=== PATIENT | female | born 1985 | race African-American/Black ===

== ENCOUNTER 2024-02-24 11:27 | Outpatient (CLI) | payer OTHER, MEDICAID, SELFPAY ==
[2024-02-24 12:59] LABS: Basophils Percent Auto 0.3 % (0.2-1.2); Eosinophils Absolute Auto 0.1 K/mm3 (0-0.3); Eosinophils Percent Auto 0.6 % (0-4.4); Hematocrit 35.1 % (37.0-47.0); Hemoglobin 11.5 g/dL (12.0-15.0); Immature Granulocyte Absolute 0.05 K/mm3 (0.00-0.031); Immature Granulocyte Percent A 0.4 % (0-0.5); Lymphocytes Percent Auto 22.5 % (18.3-44.2); Mean Corpuscular HGB Conc 32.8 g/dl (32-36); Mean Corpuscular Hemoglobin 32.1 pg (26-34); Mean Platelet Volume 10.1 fl (7.4-10.4); Monocytes Absolute Auto 0.7 K/mm3 (0.1-0.6); Monocytes Percent Auto 5.4 % (2.6-8.5); Neutrophils Absolute Auto 8.5 K/mm3 (1.3-6.7); Neutrophils Percent Auto 70.8 % (45.5-73.1); Platelet Count Result 284 k/mm3 (150-375); Red Blood Count 3.58 M/mm3 (4.2-5.4); Red Cell Distribution Width 13.6 % (11.5-14.5)
[2024-02-24 13:19] LABS: Glucose 1 Hour PP 50gm Dose 85 mg/dL
[2024-02-24 13:57] LABS: HIV 1/2 Ab P24 Ag Result Negative (Negative)
[2024-02-24 14:25] LABS: Rapid Plasma Reagin Non-Reactive (NonReactive)
[2024-02-24 14:45] LABS: Hepatitis B Surface Antigen Negative (Negative); Rubella IgG Antibody 9.3 IU/ML
[2024-02-25 07:18] LABS: CMV IgG Antibody >10.00 U/mL
== END 2024-02-24 11:28 | disposition home or self-care (01) ==
LOC: ANHLAB 11:29
PROVIDERS: Visit Provider Student in an Organized Health Care Education/Training Program
DX: N94.89 Other specified conditions associated with female genital organs and menstrual cycle (principal)
CPT/HCPCS: 36415; 82947; 84702; 85025; 85660; 86592; 86644; 86703; 86747; 86762; 86787; 86850; 86900; 86901; 87086; 87340; G0432

== ENCOUNTER 2024-04-28 12:27 | Outpatient (CLI) | payer OTHER, MEDICAID, SELFPAY ==
--- OUTSIDE RECORDS SUMMARY | 2024-04-28 13:21 | XMS_ITS | Clinical Summary ---
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 Gender Identity Not on file Sexual Orientation Not on file Plan of Treatment Health Maintenance Due Date Last Done Comments Hepatitis C Virus (HCV) Screening 1984 TdaP Immunization 1984 Hepatitis B Immunization (1 of 3 - 19+ 3-dose series) 2003 Pap Smear 2005 Cervical Cancer Screening (CCS) 2014 HPV/Cotest 2014 Influenza Immunization (#1) 11/30/202312/30, 01/19/2019 SARS-COV-2 Immunization (2023- season) 2023 Discussion re Starting/Frequency of Mammograms 2024 Respiratory Syncytial Virus (RSV) Immunization (Adult) (1 - 1-dose 75+ series) 2059 Meningococcal Immunization (ACWY) Aged Out No longer eligible b ased on patient's age to complete this topic Pneumococcal Immunization Combined Aged Out No longer eligible b ased on patient's age to complete this topic Rotavirus Immunization Aged Out No lo nger eligible based on patient's age to complete this topic
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
--- OUTSIDE RECORDS SUMMARY | 2024-04-28 13:21 | XMS_ITS | Referral Summary ---
Author Organization [facility] Address [address] [place] [address] Care Team Providers Care Tool Chaser Name Role Phone Shefali Guevara MD Primary Care Provider + Allergies No known active allergies Medications topiramate (TOPAMAX) 100 mg tablet Take 1 tablet (100 mg total) by mouth 2 (two) times a day Active topiramate (TOPAMAX) 50 mg tablet Take 1 tablet (50 mg total) by mouth 2 (two) times a day Active venlafaxine XR (EFFEXOR-XR) 150 mg 24 hr capsule Take 1 capsule (150 mg total) by mouth daily Active venlafaxine XR (EFFEXOR-XR) 75 mg 24 hr capsule Take 1 capsule (75 mg total) by mouth daily Active apixaban 5 mg (74 tabs) tablets,dose pack Take 10 mg (2 tablets) by mouth 2 (two) times a day for 7 days, then take 5 mg (1 tablet) by mouth 2 (two) times a day thereafter. 74 tablet 09/15/2023 Active Active Problems Problem Noted Date Diagnosed Date Pulmonary embolism, other, u nspecified chronicity, unspecified whether acute cor pulmonale present 09/15/2023 Assessment & Plan (09/15/2023 10:16 AM CDT): Pt had diagnosis of PE 2 days ago. She did not have O2 requirement and had negative cardiac biomarkers. She returns today after episode of vomiting. Cardiac biomarkers remain negative and she remains on RA. Further admission for monitoring is not likely to be of benefit for the patient. She should be started on DOAC (eliquis or xarelto) and discharged. After discussion with patient and perez checking with pharmacy it was decided to prescribe her eliquis. She was given 3 months supply. Conversation regarding the risks and benefits of anticoagulation occurred and patient expressed understanding Withdrawal syndrome 09/15/2023 Assessment & Plan (09/15/2023 10:18 AM CDT): Patients presenting complaint to OSH 2 days ago sounds suspicious for withdrawal from venlafaxine/topiramate as she is on fairly high doses and stopped abruptly. She has since been able to resume these medications and is feeling improved. She is able to eat/drink without issue Mixed anxiety and depressive disorder 06/03/2016 Assessment & Plan (09/15/2023 10:18 AM CDT): Resume home venlafaxine/topiramate Immunizations Name Administration Dates Next Due Tdap 11/29/2021 Social History Tobacco Use Types Packs/Day Years Used Date Smoking Tobacco: Never Assessed Personal Safety Answer Date Recorded Have you ever been in or are you currently in a harmful physical or emotional relationship or is someone making you feel afraid or unsafe? Denies 09/15/2023 Comments Unknown Sex and Gender Information Value Date Recorded Sex Assigned at Not on file Legal Sex Female 4:39 PM CDT Gender Identity Female 11/29/2021 5:58 PM CDT Sexual Orientation Not on file Last Filed Vital Signs Vital Sign Reading Time Taken Comments Blood Pressure 122/77 09/15/2023 10:00 AM CDT Pulse 73 09/15/2023 10:00 AM CDT Temperature 36.9 ??C (98.4 ??F) 09/15/2023 3:50 AM CD T Respiratory Rate 25 09/15/2023 10:00 AM CDT Oxygen Saturation 100% 09/15/2023 10:00 AM CDT Inhaled Oxygen Concentration - - Weight 117.9 kg (260 lb) 09/15/2023 12:57 AM CDT Height 160 cm (5' 3) 11/29/2021 4:51 PM CDT Body Mass Index 46.06 11/29/2021 4:51 PM CDT Plan of Treatment Not on file Procedures Procedure Name Priority Date/Time Associated Diagnosis Comments HEPATITIS PANEL, ACUTE STAT 11/29/2021 5:14 PM CDT from Last 3 Months or Most Recently Relevant to Health Maintenance Results * Hepatitis panel, acute (11/29/2021 5:14 PM CDT) Hep A IgM Nonreactive Nonreactive [facility] Comment: Interpretive Data: If Hep A IgM Ab is reported as Equivocal, a new sample should be drawn in two weeks for testing. Current interpretive data was last revised on 19. Hep B core IgM Nonreactive Nonreactive [facility] Comment: Interpretive Data If HepB Core IgM Ab is reported as Equivocal, a new sample should be drawn in two weeks for testing. Current interpretive data was last revised on 19. Hep C Ab Nonreactive Nonreactive [facility] Comment: Interpretive Data Nonreactive: Antibodies to HCV not detected. Does NOT exclude the possibility of recent exposure to HCV. Equivocal: Equivocal for HCV antibodies. Supplemental molecular testing will be automatically performed to determine infection status in accordance with current CDC screening recommendations. ?? Reactive: Positive for HCV antibodies. ??This may represent current or past HCV infection. Supplemental molecular testing will be automatically performed to determine ??current infection status in accordance with current CDC screening recommendations. Interpretive data was last revised on 2019. HepBsAg Nonreactive Nonreactive [facility] Blood 11/29/2021 5:14 PM CDT 11/29/2021 5:16 PM CDT us [facility] MICROBIOLOGY - GENERAL ORDER MARTÍN Final Result [facility] [address] [facility] [place] [address] from Last 3 Months or Most Recently Relevant to Health Maintenance Insurance [employer] [facility] CHOICE PLUS [facility]PPO Address: [address] [address] [place] [address] [employer] [facility] PL[facility]O Address: [address] [address] [place] [address] Care Teams Tool Chaser Relationship Specialty Start Date End Date Shefali Guevara MD [address] [place] [address] DR RANDALL [address] [place] [id number] PCP - General Family Medicine 11/29/21
--- OUTSIDE RECORDS SUMMARY | 2024-04-28 13:21 | XMS_ITS | Clinical Summary ---
Author Organization [facility] Address [facility] [facility] [place], [place] [id number] [place] [address] Care Team Providers Care Nutrition Teacher Name Role Phone Unavailable Primary Care Provider Unavailabl e Social History Tobacco Use Types Packs/Day Years Used Date Smoking Tobacco: Never Assessed Comments Unknown Sex and Gender Information Value Date Recorded Sex Assigned at Not on file Legal Sex Female 7:50 PM CDT Gender Identity Not on file Sexual Orientation Not on file Plan of Treatment Health Maintenance Due Date Last Done Comments Cervical Cancer Screening Pa p Smear (Age 30 to 64) Every 3 Years 1984 Annual Physical 1987 Hepatitis C 2002 DTaP, Tdap and Td Vaccines ( 1 - Tdap) 2003 Hepatitis B Vaccines (1 of 3 - 19+ 3-dose series) 2003 Cervical Cancer Screening Pa p with HPV Testing (Age 30 to 64) Every 5 Years 2014 Cervical Cancer Screening with HPV 2014 COVID-19 Vaccine (2023-2 5 season) 2023 Influenza Adult (#1) 2023 Mammogram Screening 2024 HPV Vaccines Aged Out No longer eligi ble based on patient's age to complete this topic Meningococcal B Vaccine Aged Out No l onger eligible based on patient's age to complete this topic Meningococcal Vaccine Aged Out No costa andressa eligible based on patient's age to complete this topic Pneumococcal Vaccine: Pediat rics (0 to 5 Years) and At-Risk Patients (6 to 64 Years) Aged Out No longer eligible b ased on patient's age to complete this topic RSV Immunizations Under 20 Months Aged Out No longer eligible based on patient's age to complete this topic
--- OUTSIDE RECORDS SUMMARY | 2024-04-28 13:21 | XMS_ITS | Clinical Summary ---
Author Organization [facility] Address [address] [place] [address] Care Team Providers Care Concrete Plant Laborer Name Role Phone Shefali Guevara MD Primary Care Provider [phone] Source Comments [facility],non-owned Affiliates and Associated Physician Practices is amultiple site organization consisting of ambulatory clinics and hospital sitesin [place], [place], [place] and [place]. This disclosure is being madepursuant to the Care Everywhere program and may not contain all information available regarding this patient. Last updated 17.[facility] Allergies No known active allergies Medications * Be aware that medications may not be up to date on this document. Alwaysverify current medications with the patient. Medication Sig Dispensed Refills Start Date End Date Status Vit-DSS-Fe Fum-FA ( vitamin with iron) tabletIndications : Take 1 (one) tablet by mouth once daily Reasons: Active enoxaparin (Lovenox) 40 MG/0.4ML injectionIndicati ons:history of pulmonary embolism Inject 60 (sixty) mg subcutaneously every 12 hours Reasons: history of pulmonary embolism Active aspirin (Aspirin) 81 MG chew tabletIndications :Antepartum multigravida of advanced maternal age (HCC),History of pulmonary embolism Take 1 (one) tablet by mouth once daily 100 tablet 1 04/28/2024 Active oxyCODONE-acetami nophen (PERCOCET) 5-325 MG tablet Take 1 tablet by mouth every 6 hours as needed for Pain 12 tablet 11/07/2018 04/28/19 25 Discontinu ed(List Clean-Up) Encounters Date Type Department Care Team Description 04/28/2024 9:45 AM HAND RUG CLEANER Hospital Encounter [facility] [address] [place] [address] Anshul Gates MD 04/28/2024 9:45 AM HAND RUG CLEANER Hospital Encounter [facility] Maternal & Care [address] [place] [address] Anshul Gates MD 04/20/2024 Travel 04/12/2024 Telephone [facility] [address] [place] [phone] Marisol Coe RN Results (NIPT) 04/06/2024 9:45 AM HAND RUG CLEANER - 04/06/2024 11:59 PM HAND RUG CLEANER Hospital Encounter [facility] [address] [place] [phone] Fe Maravilla MD Discharge Disposition: Home or Self Care 03/22/2024 Telephone [facility] [address] [place] [phone] Nelly Griffiths Appointment (LM for pt to C/S appt) from Last 3 Months Immunizations Name Administration Dates Next Due TDAP (7yrs+) 11/07/2018 Family History Relation Name Status Comments Father Mother Alive Social History Tobacco Use Types Packs/Day Years Used Date Smoking Tobacco: Former Cigarettes Smokeless Tobacco: Never Tobacco Cessation:Counseling Given: Not Answered Alcohol Use Standard Drinks/Week Comments Not Currently 0 (1 standard drink = 0.6 oz pur e alcohol) Estimated Date of Delivery Comme nts Yes 10/11/2024 Based on last me nstrual period of 01/05/2024 Sex and Gender Information Value Date Recorded Sex Assigned at Not on file Gender Identity Not on file Sexual Orientation Not on file Last Filed Vital Signs Vital Sign Reading Time Taken Comments Blood Pressure 120/74 04/28/2024 10:15 AM HAND RUG CLEANER Pulse 84 04/28/2024 10:15 AM HAND RUG CLEANER Temperature 37.1 ??C (98.7 ??F) 11/07/2018 6:48 PM CD T Respiratory Rate 18 11/07/2018 7:15 PM CDT Oxygen Saturation 100% 11/07/2018 6:48 PM CDT Inhaled Oxygen Concentration - - Weight 120.7 kg (266 lb) 04/28/2024 10:15 AM HAND RUG CLEANER Height 160 cm (5' 3) 04/28/2024 10:15 AM HAND RUG CLEANER Body Mass Index 47.12 04/28/2024 10:15 AM HAND RUG CLEANER Plan of Treatment Upcoming Encounters Date Type Department Care Team (Late st Contact Info) Description 05/05/2024 7:30 AM HAND RUG CLEANER Appointment [facility] Maternal & Care [address] [place] [phone] 05/26/2024 9:00 AM HAND RUG CLEANER Appointment [facility] [address] [place] [phone] 05/26/2024 9:45 AM HAND RUG CLEANER Appointment [facility] [address] [place] [phone] Health Maintenance Due Date Last Done Comments LIPID TESTING 1984 MAMMOGRAM 1984 PAP SMEAR 1984 HIV SCREENING 1999 HEPATITIS C SCREENING 03/12/2002 HEPATITIS B VACCINE (1 of 3 - 19+ 3-dose series) 2003 COVID-19 VACCINE (2023-2 5 season) 2023 INFLUENZA VACCINE (#1) 2023 , 01/19/2019 DEPRESSION SCREENING 03/31/2024 SCREENING FOR DIABETES 04/28/2024 11/07/2018 OB-TDAP CURRENT 07/12/2024 11/07/2018 DTAP/TDAP/TD VACCINES (2 - T d or Tdap) 11/07/2028 11/07/2018 ZOSTER VACCINE (1 of 2) 2034 HIB VACCINE Aged Out No longer eligi ble based on patient's age to complete this topic HPV VACCINE Aged Out No longer eligi ble based on patient's age to complete this topic MENINGOCOCCAL (Group B) VACCINE Aged Out No longer eligible b ased on patient's age to complete this topic MENINGOCOCCAL VACCINE Aged Out No costa andressa eligible based on patient's age to complete this topic PNEUMOCOCCAL VACCINE Aged Out No long er eligible based on patient's age to complete this topic Respiratory Syncytial Virus (RSV) Vaccine Pt: or over 60 yrs (No Doses Required) Completed Procedures Procedure Name Priority Date/Time Associated Diagnosis Comments SONOGRAM - COMPLETE Routine 04/06/2024 10:29 AM HAND RUG CLEANER Obesity, morbid, BMI 40.0-49.9 (HCC) Antepartum multigravida of advanced maternal age (HCC) Fourth (HCC) 13 weeks gestation of (HCC) BASIC METABOLIC PANEL (CALCIUM TOTAL) STAT 11/07/2018 6:55 PM CDT from Last 3 Months or Most Recently Relevant to Health Maintenance Results * SONOGRAM - COMPLETE (04/06/2024 10:29 AM HAND RUG CLEANER) Linked Results Indication ======== Nuchal Translucency AMA Obesity, Class III Pulmonary embolism in August 2023 History ====== OB History ? 4. Para 2 Maternal Assessment = Physical Exam ??Height 160 cm, 5 ft 3 in. Weight 122 kg, 268 lb. Initial weight 123 kg, 272 lb. BMI 47.47 kg/m?. Initial BMI 48.18 kg/m?. Weight gain -2 kg, -4 ? lb Method ====== Transabdominal ultrasound. View: Sufficient ========= Mars . Number of fetuses: 1 Dating ====== ? Date ?Details ? Gest. age ? YASIR LMP ?01/05/2024 ? 13 w + 1 d ?10/11/2024 U/S ?04/06/2024 ?based upon CRL ?13 w + 0 d ?10/12/2024 Assigned dating based on the LMP, selected on 04/06/2024 ?13 w + 1 d ?10/11/2024 General Evaluation Cardiac activity present Placenta: posterior; marginal placental cord insertion Cord vessels: 3 vessel cord Amniotic fluid: appears normal Biometry FHR ?121 ? bpm CRL ?66.8 ?mm ?13w 0d ??33% ? Hadlock NT ? 1.00 ?mm Anatomy Face: nasal bone suboptimal. The following structures appear normal: Neck. The following structures could not be adequately visualized: Kidneys. The following structures were visualized: Cranium. Heart. Stomach. Bladder. Spine. Arms. Legs. Maternal Structures Right Ovary ?Not visualized Left Ovary ? Appears normal Impression ========= Single, live, intrauterine at 13w 1d The nuchal translucency measures 1 mm First trimester aneuploidy screening was performed. The placenta is posterior with a marginal cord insertion. The inferior edge is not well visualized at this early gestational age. Follow-up ======== Await results of genetic screening. MFM consult is recommended, to discuss the history of pulmonary embolism in the context of the current . Ultrasound in 4 weeks, for basic anatomy and to better define the placental location. Detailed ultrasound at 20-21 weeks, for anatomic survey, growth and transvaginal cervical length is recommended. Coding ====== Procedures ? 90556: 1st Trimester ? 16864: Nuchal Translucency [facility] PACS Anatomical Region Laterality Modality Other 04/06/2024 10:2 9 AM HAND RUG CLEANER Jesús Shepard MD [facility] ORDERABLES * (ABNORMAL) BASIC METABOLIC PANEL (CALCIUM TOTAL) (11/07/2018 6:55 PM CDT) BUN 14 7 - 26 mg/dL 11/07/2018 7:14 PM [facility] Creatinine 0.8 0.6 - 1.2 mg/dL 11/07/2018 7:14 PM [facility] Sodium 142 136 - 145 mmol/L 11/07/2018 7:14 PM [facility] Potassium 3.4(L) 3.5 - 4.5 mmol/L 11/07/2018 7:14 PM [facility] Chloride 110(H) 98 - 107 mmol/L 11/07/2018 7:14 PM [facility] CO2 18(L) 22 - 29 mmol/L 11/07/2018 7:14 PM [facility] Glucose 100 70 - 115 mg/dL 11/07/2018 7:14 PM [facility] Calcium 8.9 8.4 - 10.2 mg/dL 11/07/2018 7:14 PM [facility] Anion Gap 17 8 - 18 11/07/2018 7:14 PM [facility] BUN/Creatinine Ratio 18 7 - 23 11/07/2018 7:14 PM [facility] Osmolality Calculated 295 270 - 300 mOsm/kg 11/07/2018 7:14 PM [facility] eGFR >60 >60 mL/min/1.7 3 m2 11/07/2018 7:14 PM [facility] Blood BLOOD SPECIMEN / Unknown Venipuncture / Unknown 11/07/2018 6:55 PM CDT 11/07/2018 6:58 PM CDT Vicente Ivey DO LAB - CHEMISTRY [facility] [address] [phone] from Last 3 Months or Most Recently Relevant to Health Maintenance Care Teams Concrete Plant Laborer Relationship Specialty Start Date End Date Shefali Guevara MD [address] [place] [id number] PCP - General Family Medicine 11/07/18
--- OUTSIDE RECORDS SUMMARY | 2024-04-28 13:21 | XMS_ITS | Referral Summary ---
Author Organization [facility] Address [address] [facility] [place] [address] Care Team Providers Care Seasonal Tax Preparer Name Role Phone Shefali Guevara MD Primary Care Provider [phone] Source Comments [facility],non-owned Affiliates and Associated Physician Practices is amultsumma healthe site organization consisting of ambulatory clinics and hospital sitesin [place], [place], [place] and [place]. This disclosure is being madepursuant to the Care Everywhere program and may not contain all information available regarding this patient. Last updated 17.[facility] Encounters Date Type Department Care Team Description 04/28/2024 9:45 AM SMOKE EATER Hospital Encounter [facility] Maternal & Care [address] [place] [phone] Anshul Gates MD 04/28/2024 9:45 AM SMOKE EATER Hospital Encounter [facility] Maternal & Care [address] [place] [phone] Anshul Gates MD 04/20/2024 Travel 04/12/2024 Telephone [facility] Maternal & Care [address] [place] [phone] Marisol Coe RN Results (NIPT) 04/06/2024 9:45 AM SMOKE EATER - 04/06/2024 11:59 PM SMOKE EATER Hospital Encounter [facility] Maternal & Care [address] [place] [phone] Fe Maravilla MD Discharge Disposition: Home or Self Care 03/22/2024 Telephone [facility] & Care [address] [place] [address] Nelly Griffiths Appointment (LM for pt to C/S appt) from Last 3 Months Allergies No known active allergies Medications * [...] tablet 11/07/2018 04/28/19 25 Discontinu ed(List Clean-Up) Immunizations Name Administration Dates Next Due TDAP (7yrs+) 11/07/2018 Social History Tobacco Use Types Packs/Day Years [...] Comments Blood Pressure 120/74 04/28/2024 10:15 AM SMOKE EATER Pulse 84 04/28/2024 10:15 AM SMOKE EATER Temperature 37.1 ??C (98.7 ??F) 11/07/2018 6:48 PM CD T Respiratory Rate 18 11/07/2018 7:15 PM CDT Oxygen Saturation 100% 11/07/2018 6:48 PM CDT Inhaled Oxygen Concentration - - Weight 120.7 kg (266 lb) 04/28/2024 10:15 AM SMOKE EATER Height 160 cm (5' 3) 04/28/2024 10:15 AM SMOKE EATER Body Mass Index 47.12 04/28/2024 10:15 AM SMOKE EATER Plan of Treatment Upcoming Encounters Date Type Department Care Team (Late st Contact Info) Description 05/05/2024 7:30 AM SMOKE EATER Appointment [facility] Maternal & Care [address] [place] [phone] 05/26/2024 9:00 AM SMOKE EATER Appointment [facility] Maternal & Care [address] [place] [phone] 05/26/2024 9:45 AM SMOKE EATER Appointment [facility] Maternal & Care [address] [place] [phone] Procedures Procedure Name Priority Date/Time Associated Diagnosis Comments SONOGRAM - COMPLETE Routine 04/06/2024 10:29 AM SMOKE EATER Obesity, morbid, BMI 40.0-49.9 (HCC) Antepartum multigravida of advanced maternal age (HCC) Fourth (HCC) 13 weeks gestation of (HCC) BASIC METABOLIC PANEL (CALCIUM TOTAL) STAT 11/07/2018 6:55 PM CDT from Last 3 Months or Most Recently Relevant to Health Maintenance Results * SONOGRAM - COMPLETE (04/06/2024 10:29 AM SMOKE EATER) Linked Results Indication ======== Nuchal Translucency AMA [...] length is recommended. Coding ====== Procedures ? 76493: 1st Trimester ? 59441: Nuchal Translucency [employer] PACS Anatomical Region Laterality Modality Other 04/06/2024 10:2 9 AM SMOKE EATER Jesús Shepard MD [facility] ORDERABLES * (ABNORMAL) BASIC METABOLIC PANEL (CALCIUM TOTAL) (11/07/2018 6:55 PM CDT) BUN 14 7 - 26 mg/dL 11/07/2018 7:14 PM [facility] Creatinine 0.8 0.6 - 1.2 mg/dL 11/07/2018 7:14 PM [facility] Sodium 142 136 - 145 mmol/L 11/07/2018 7:14 PM [facility] Potassium 3.4(L) 3.5 - 4.5 mmol/L 11/07/2018 7:14 PM [facility] Chloride 110(H) 98 - 107 mmol/L 11/07/2018 7:14 PM [facility] CO2 18(L) 22 - 29 mmol/L 11/07/2018 7:14 PM [facility] Glucose 100 70 - 115 mg/dL 11/07/2018 7:14 PM CDT [facility] Calcium 8.9 8.4 - 10.2 mg/dL 11/07/2018 7:14 PM [facility] Anion Gap 17 8 - 18 11/07/2018 7:14 PM [facility] BUN/Creatinine Ratio 18 7 - 23 11/07/2018 7:14 PM T [facility] Osmolality Calculated 295 270 - 300 mOsm/kg 11/07/2018 7:14 PM [facility] eGFR >60 >60 mL/min/1.7 3 m2 11/07/2018 7:14 PM [facility] Blood BLOOD SPECIMEN / Unknown Venipuncture / Unknown 11/07/2018 6:55 PM CDT 11/07/2018 6:58 PM CDT Vicente Ivey DO LAB - CHEMISTRY [facility]ERE[facility] [address] [phone] from Last 3 Months or Most Recently Relevant to Health Maintenance Care Teams Seasonal Tax Preparer Relationship Specialty Start Date End Date Shefali Guevara MD [address] [place] [address] Dr. GONZALEZ, GIANNI [phone] PCP - General Family Medicine 11/07/18
--- OUTSIDE RECORDS SUMMARY | 2024-04-28 13:21 | XMS_ITS | Encounter Summary ---
Author Organization [facility] Address [address] [facility] [place] [address] Care Team Providers Care Washing Machine Operator Name Role Phone Shefali Guevara MD Primary Care Provider [phone] Reason for Referral * Laboratory Services (Routine) - Open Specialty Diagnoses / Procedures Referred By Contac t Referred To Contact Diagnoses Fourth (HCC) History of pulmonary embolism Procedures FACTOR [place] [address] [place] [phone] Referral ID Status Reason Start Date Expiration Date Visits Re quested Visits Authorized [id number] Open 04/28/2024 04/28/2025 1 1 CAPPER * Laboratory Services (Routine) - Open Specialty Diagnoses / Procedures Referred By Contac t Referred To Contact Diagnoses Fourth (HCC) History of pulmonary embolism Procedures PROTHROMBIN [id number] PANEL Anshul Gates MD [address] [place] [phone] Referral ID Status Reason Start Date Expiration Date Visits Re quested Visits Authorized [id number] Open 04/28/2024 04/28/2025 1 1 CAPPER * Consultation (Routine) - Authorized Specialty Diagnoses / Procedures Referred By Contac t Referred To Contact Diagnoses Obesity, morbid, BMI 40.0-49.9 (HCC) Antepartum multigravida of advanced maternal age (HCC) 16 weeks gestation of (HCC) Fourth (HCC) History of pulmonary embolism Jesús Shepard MD [address] [place] [address] Referral ID Status Reason Start Date Expiration Date Visits Requested Visits Authorized [id number] Authorized Specialty Services Required 04/23/2024 04/23/2025 3 3 CAPPER Reason for Visit * Reason Comments Consultation Maternal Medicine Encounter Details Date Type Department Care Team (Late st Contact Info) Description 04/28/2024 9:45 AM COMB CAPPER Hospital Encounter [facility] Maternal & Care [facility] [place] [address] Anshul Gates MD [address] [phone] Social History Tobacco Use Types Packs/Day Years [...] on file Sexual Orientation Not on file documented as of this encounter Last Filed Vital Signs Vital Sign Reading Time Taken Comments Blood Pressure 120/74 04/28/2024 10:15 AM COMB CAPPER Pulse 84 04/28/2024 10:15 AM COMB CAPPER Temperature - - Respiratory Rate - - Oxygen Saturation - - Inhaled Oxygen Concentration - - Weight 120.7 kg (266 lb) 04/28/2024 10:15 AM COMB CAPPER Height 160 cm (5' 3) 04/28/2024 10:15 AM COMB CAPPER Body Mass Index 47.12 04/28/2024 10:15 AM COMB CAPPER documented in this encounter Progress Notes * Marisol Coe RN - 04/28/2024 10:19 AM CST Patient here for provider visit and ultrasound . Patient reports she had some vaginal bleeding around 03/17/24 and she had to decrease lifting at work but she is off restriction as of 04/25/24. No vaginal bleeding since February. Denies cramping, contractions, leakage of fluid, and reports absent movement at 16 weeks EGA. RN reviewed preeclampsia precautions and baby blues, handout given. Denies headache, blurred vision, RUQ pain. Patient was having chest pain and withdrawals from being off effexor for about 5 days and she presented to [facility] in [place], [place] where they diagnosed her with pulmonary embolism. Patient was in ED for 1.5 days and could not find a bed so she signed out AMA. She went home and started throwing up blood and her kids called an ambulance that came and took her to [place]. Patient had CT scan, EKG, ect. Patient was put on heparin and patient was released on blood thinners. Patient did not get in for FU with [facility]. Patient went to Dr. Renee about 2 weeks later and MD did workup full work up as well as sleep study. Patient reports every test but the sleep study came back normal. Her sleep study showed she had sleep apnea and needed CPAP. Patient is unable to use CPAP machine due to uncomfortable. . Patient Vitals for the past 6 hrs: Pulse BP 04/28/24 1015 84 120/74 Patient's OB prescribed her enoxaparin but she is struggling with anxiety to be able to give herself shots. Discussed working through this and/or having another person be able to give her the shots. Instructed patient on how to give SQ injections today. Patient verbalized understanding. Urine dip today Negative for ketones, protein, glucose, blood and leukocytes. Orders from Dr. Gates to prescribe ASA 81 mg daily. [facility] ordered Free T4, TSH, SSA, SSB, APLAS and Anti thrombophilia labs. Patient to take requistion to [facility] lab. Marisol Coe RN 04/28/2024 10:25 AM CAPPER documented in this encounter Plan of Treatment Upcoming Encounters Date Type Department Care Team (Late st Contact Info) Description 05/05/2024 7:30 AM COMB CAPPER Appointment [facility] Maternal & Care [address] [place] [address] 05/26/2024 9:00 AM COMB CAPPER Appointment [facility] Maternal & Care [address] [place] [address] 05/26/2024 9:45 AM COMB CAPPER Appointment [facility] Maternal & Care [address] [place] [address] Scheduled Orders Name Type Priority Associated Diagnoses Orde r Schedule PROTHROMBIN [id number] PANEL Lab Routine Fourth ([facility]) History of pulmonary embolism 1 Occurrences starting 04/28/2024 until 04/23/2025 PROTEIN S ANTIGEN FREE Lab Routine Fourth ([facility]) History of pulmonary embolism 1 Occurrences starting 04/28/2024 until 04/23/2025 ANTITHROMBIN III ACTIVITY Lab Routine Fourth ([facility]) History of pulmonary embolism 1 Occurrences starting 04/28/2024 until 04/23/2025 FACTOR V LEIDEN MUTATION PANEL Lab Routine Fourth ([facility]) History of pulmonary embolism 1 Occurrences starting 04/28/2024 until 04/23/2025 BETA-2 GLYCOPROTEIN 1 ANTIBODY IGG/IGM PANEL Lab Routine Fourth ([facility]) History of pulmonary embolism 1 Occurrences starting 04/28/2024 until 04/23/2025 CARDIOLIPIN ANTIBODY IGG/IGM PANEL Lab Routine Fourth ([facility]) History of pulmonary embolism 1 Occurrences starting 04/28/2024 until 04/23/2025 SS-A (SJOGREN'S) ANTIBODY Lab Routine Fourth ([facility]) History of pulmonary embolism 1 Occurrences starting 04/28/2024 until 04/23/2025 SS-B (SJOGREN'S) ANTIBODY Lab Routine Fourth ([facility]) History of pulmonary embolism 1 Occurrences starting 04/28/2024 until 04/23/2025 PROTEIN C ACTIVITY Lab Routine Fourth ([facility]) History of pulmonary embolism 1 Occurrences starting 04/28/2024 until 04/23/2025 Scheduled Referrals Name Type Priority Associated Diagnoses Orde r Schedule AMB REFERRAL TO MATERNAL- MEDICINE Outpatient Referral Routine Obesity, morbid, BMI 40.0-49.9 ([facility]) Antepartum multigravida of advanced maternal age ([facility]) 16 weeks gestation of ([facility]) Fourth ([facility]) History of pulmonary embolism 1 Occurrences starting 04/23/2024 until 04/23/2025 documented as of this encounter Visit Diagnoses Diagnosis Obesity, morbid, BMI 40.0-49.9 (HCC)- Primary Antepartum multigravida of advanced maternal age (HCC) 16 weeks gestation of (HCC) state, incidental Fourth (HCC) state, incidental History of pulmonary embolism Personal history of pulmonary embolism documented in this encounter Care Teams Washing Machine Operator Relationship Specialty Start Date End Date Shefali Guevara MD [address] [place] [address] [place] [phone] PCP - General Family Medicine 11/07/18 documented as of this encounter
--- OUTSIDE RECORDS SUMMARY | 2024-04-28 13:22 | XMS_ITS | Encounter Summary ---
Author Organization [facility] Address [address] [place] [address] Care Team Providers Care Sustainable Development Policy Analyst Name Role Phone Shefali Guevara MD Primary Care Provider [phone] Reason for Referral * (Routine) - Open Specialty Diagnoses / Procedures Referred By Contac t Referred To Contact Diagnoses Encounter for ultrasound (HCC) Advanced maternal age in multigravida, second trimester (HCC) Procedures SONOGRAM - COMPLETE Anshul Gates MD [address] [phone] Referral ID Status Reason Start Date Expiration Date Visits Re quested Visits Authorized [id number] Open 04/28/2024 04/28/2025 1 1 QA ANALYST * (Routine) - Open Specialty Diagnoses / Procedures Referred By Contac t Referred To Contact Diagnoses Encounter for ultrasound (HCC) Advanced maternal age in multigravida, second trimester (HCC) Procedures SONOGRAM - COMPLETE Anshul Gates MD [address] [phone] Referral ID Status Reason Start Date Expiration Date Visits Re quested Visits Authorized [id number] Open 04/28/2024 04/28/2025 1 1 QA ANALYST Reason for Visit * Reason Comments Ultrasound Encounter Details Date Type Department Care Team (Late st Contact Info) Description 04/28/2024 9:45 AM LEAD QA ANALYST Hospital Encounter [facility] Maternal & Care [address] [place] [phone] Anshul Gates MD [facility] [phone] Social History Tobacco Use Types Packs/Day Years Used Date Smoking Tobacco: Former Cigarettes Smokeless Tobacco: Never Alcohol Use Standard Drinks/Week Comments Not Currently 0 (1 standard drink = 0.6 oz pur e alcohol) Estimated Date of Delivery Comme nts Yes 10/11/2024 Based on last me nstrual period of 01/05/2024 Sex and Gender Information Value Date Recorded Sex Assigned at Not on file Gender Identity Not on file Sexual Orientation Not on file documented as of this encounter Plan of Treatment Upcoming Encounters Date Type Department Care Team (Late st Contact Info) Description 05/05/2024 7:30 AM LEAD QA ANALYST Appointment [facility] Maternal & Care [address] [place] [phone] 05/26/2024 9:00 AM LEAD QA ANALYST Appointment [facility] Maternal & Care [address] [place] [phone] 05/26/2024 9:45 AM LEAD QA ANALYST Appointment [facility] Maternal & Care [address] [place] [phone] Scheduled Orders Name Type Priority Associated Diagnoses Order Schedule SONOGRAM - COMPLETE MATRNL MED Routine Encounter for ultrasound (HCC) Advanced maternal age in multigravida, second trimester (HCC) 1 Occurrences starting 04/28/2024 until 04/28/2025 SONOGRAM - COMPLETE MATRNL MED Routine Encounter for ultrasound (HCC) Advanced maternal age in multigravida, second trimester (HCC) 1 Occurrences starting 04/28/2024 until 04/28/2024 LUPUS ANTICOAGULANT PANEL Lab Routine Advanced maternal age in multigravida, second trimester (HCC) History of pulmonary embolism Ordered: 04/28/2024 documented as of this encounter Visit Diagnoses Diagnosis Encounter for ultrasound (HCC)- Primary Encounter for routine screening for malformation using ultrasonics Advanced maternal age in multigravida, second trimester (HCC) History of pulmonary embolism Personal history of pulmonary embolism documented in this encounter Care Teams Sustainable Development Policy Analyst Relationship Specialty Start Date End Date Shefali Guevara MD [address] [place] [address] [place] [phone] PCP - General Family Medicine 11/07/18 documented as of this encounter
--- OUTSIDE RECORDS SUMMARY | 2024-04-28 13:22 | XMS_ITS | CONTINUITY OF CARE DOCUMENT ---
Author Name daphnie, daphnie Address Unknown Organization [facility] Address [address] [place] [address] Phone [phone] Care Team Providers Care Egyptologist Name Role Phone Víctor GUTHRIE, Sathya Unavailable [facility] [employer] MARIA LMARCUS Unavailable COLT BOSWELL Unavailable PROBLEMS Condition Status Date Provider Notes Chest pain-type to be determined active Derek Renee MD Shortness of breath active Sathya Renee MD Swelling of bilateral legs active Sathya jeffrey MD Pulmonary embolism active Gurwinder Ahmedzai Sleep disorder active Gurwinder Machado RONDA--on cpap active Gurwinder Machado Morbid obesity active Sathya Renee MD Family History of Hypertension: active ? Brian Renee MD Family History of Hyperlipidemia: active ? To joselo Renee MD Family History of CVA or Stroke: active ? Derek Renee MD ENCOUNTERS Date Type Provider Location Encounter Diag nosis - In-person encounter Office Visit Sathya Renee MD [facility] RONDA--on cpap - In-person encounter Office Visit Sathya Renee MD [facility] Pulmonary embolismSleep disorder - In-person encounter Office Visit Sathya Renee MD [facility] Family History of CVA or Stroke:Family History of Hyperlipidemia:Family History of Hypertension:Chest pain-type to be determinedShortness of breathSwelling of bilateral legsMorbid obesity VITAL SIGNS Date Observation Value Provider Body Mass Index (Ratio) 45.70 kg/m2 Brian Renee MD pulse rate 77 /min Eva Fofana blood pressure, cuff size large Elijah smith Daisetta blood pressure, diastolic 68 mm[Hg] [facility], [facility] 118 mm[Hg] [facility] oxygen saturation, oximetry 99 % [facility] weight E&M 258 [lb_av] Eva Daisetta respiratory rate E&M 12 /min [facility] height E&M 63 [in_i] [facility] Body [facility] Index (Ratio) 46.23 kg/m2 Brian Renee MD blood pressure, diastolic -1 mm[Hg] Sury nkLog blood pressure, systolic 112 mm[Hg] Breann kLogic pulse rate 73 /min Bull blood pressure, diastolic 68 mm[Hg] Joe rret blood pressure, systolic 112 mm[Hg] Jar ret oxygen saturation, oximetry 100 % Bull blood pressure, cuff size large Joe rret respiratory rate E&M 14 /min Bull weight E&M 261 [lb_av] Bull y height E&M 63 [in_i] Bull da y blood pressure, diastolic 70 mm[Hg] Be halliey Pham blood pressure, systolic 132 mm[Hg] Bet shell Pham Body Mass Index (Ratio) 47.47 kg/m2 Brian Renee MD blood pressure, diastolic 76 mm[Hg] Da deja [place] blood pressure, systolic 122 mm[Hg] Dac ia Jam oxygen saturation, oximetry 98 % Karoline Jam respiratory rate E&M 16 /min Karoline V oss pulse rate 73 /min Karoline Jam weight E&M 268 [lb_av] Karoline Jam height E&M 63 [in_i] [facility] ALLERGIES Allergy Name Onset Date Reaction Criticality Status LATEX Low Criticality active RESULTS Date Observation Value Provider Reference Range Interpretation Location 3 hemoglobin A1C, blood, as % of total hemoglobin 5.2 % [facility] 4.8-5.6 3 free thyroxine index 1.8 [facility] 1.2-4.9 3 triiodothyronine resin uptake 26 % [facility] 24-39 3 thyroxine, serum, total 6.9 ug/dL [facility] 4.5-12.0 3 thyroid stimulating hormone, serum 1.720 u[IU]/mL [facility] 0.450-4.500 3 lipoprotein, beta, serum, point, quantitative, calculated 69 mg/dL [facility] 0-99 3 very low density lipoproteins 16 mg/dL [facility] 5-40 3 HDL cholesterol, serum 49 mg/dL [facility] >39 3 triglyceride, serum, random 80 mg/dL [facility] 0-149 3 cholesterol, serum 134 mg/dL [facility] 207-780 9695/03/2 3 platelet count 308 X10E3/UL [facility] 806-225 7633/03/2 3 red blood cell distribution width 13.8 % [facility] 12.3-15.4 3 mean corpuscular hemoglobin concentration, RBC 32.8 G/DL [facility] 31.5-35.7 3 mean corpuscular hemoglobin, RBC 30.9 pg [facility] 26.6-33.0 3 mean corpuscular volume, RBC 94 fL [facility] 79-97 3 hematocrit, blood 35.4 % [facility] 34.0-46.6 3 hemoglobin, blood 11.6 g/dL [facility] 11.1-15.9 3 erythrocyte (RBC) count 3.75 X10E6/UL [facility] 3.77-5.28 Low 3 leukocyte count, blood 12.5 X10E3/UL [facility] 3.4-10.8 High 3 alanine aminotransferase (SGPT), serum 12 1/L [facility] 0-32 3 aspartate aminotransferase (SGOT), serum 14 1/L [facility] 0-40 3 alkaline phosphatase, serum 62 1/L [facility] 39-117 3 bilirubin, serum, total 0.2 mg/dL [facility] 0.0-1.2 3 albumin/globulin ratio, serum 1.4 [facility] 1.2-2.2 3 globulin, serum 2.9 [facility] 1.5-4.5 3 albumin, serum 4.1 g/dL [facility] 3.5-5.5 3 protein, total, serum 7.0 g/dL [facility] 6.0-8.5 3 calcium, serum 9.5 mg/dL [facility] 8.7-10.2 3 carbon dioxide, venous blood 23 mmol/L [facility] 20-29 3 chloride, serum 104 mmol/L [facility] 96-106 3 potassium, serum 4.7 mmol/L [facility] 3.5-5.2 3 sodium, serum 140 mmol/L [facility] 164-108 0098/03/2 3 urea nitrogen/creatinine ratio, serum 13 [facility] 9-23 3 eGFR if 113 mL/min/{1 .73_m2} [facility] >59 3 eGFR if not 98 mL/min/{1 .73_m2} [facility] >59 3 creatinine, serum 0.79 mg/dL [facility] 0.57-1.00 3 urea nitrogen, blood 10 mg/dL [facility] 6-20 3 blood glucose, random 93 mg/dL [facility] 65-99 HISTORY OF MEDICATION USE Medication Status Instructions Dates Provider Indications Com ments Xarelto 20 mg tablet active Take 1 tablet by mouth once a day Gurwinder Ahmedzai Xarelto 20 mg tablet completed - Lili Antonio RN VITAMIN D TABLET active 2 unit once a day Gurwinder Machado Depo-Provera 150 mg/mL suspension completed 1 every three months - Gurwinder Machado SOCIAL HISTORY Date Observation Value Provider alcohol use, average drinks per day social Gurwinder Smithzacarmelita alcohol use yes Gurwinder Leei smoking, year quit 2017 Gurwinder smithbruce smoking history, total pack/day 2 Gurwinder Smithzai cigarette use yes Gurwinder Leei smoking status Former smoker Gurwinder Lee i alcohol use, average drinks per day social Gurwinder Leei alcohol use yes Gurwinder Smithzai smoking, year quit 2017 Gurwinder menendez smoking history, total pack/day 2 Gurwinder Leei cigarette use yes Gurwinder Leei smoking status Former smoker Gurwinder Lee i smoking status Former smoker Patricia Maynar d number of grandchildren Sathya Renee MD T brooke Renee MD social history E&M S moking History: Abimael reis is a former smoker. Sathya Renee MD social history reviewed E&M revi ewed - no changes required Sathya Renee MD alcohol use, average drinks per day social Karoline Jam alcohol use yes Karoline Jam smoking, year quit 2017 Karoline Chadwick s smoking history, total pack/day 2 Karoline Polk cigarette use yes Karoline Polk smoking status Former smoker Karoline Polk FUNCTIONAL STATUS Date Observation Value Provider periodic limb movement index absent (0) Patricia Pham FAMILY HISTORY Family Member Condition Maternal Grandmother Family History of C ongestive Heart Failure: Father Family History of Hy pertension: Father Family History of Hy perlipidemia: Father Family History of Di abetes: Father Family History of CV A or Stroke: INSURANCE PROVIDERS Payer name Policy type / Coverage type [place] red democrat [facility] Other [id number] [facility] Medicaid 0 [id number] ADVANCE DIRECTIVES Name Date DISCUSSED - NO DECISION MADE TREATMENT PLAN Date Name Performer Cardiology:This visi t has been a part of the consistent, comprehensive, and ongoing management of the chronic medical condition(s) listed above for the patient. Orders: C T Angio Chest (PE Protocol) (CPT-67145) Sathya Renee MD Cardiology Gurwinder penelope Cardiology Gurwinder penelope Cardiology Gurwinder penelope Cardiology: O rders: C T Angio Chest (PE Protocol) (CPT-33643) Gurwinder medzacarmelita Cardiology Gurwinder Ahmedzai Cardiology: O rders: S leep Study Home (CPT-17603) Gurwinder Davilamedzacarmelita Cardiology Gurwinder Ahmedzai Cardiology Gurwinder Ahmedzai Cardiology Gurwinder Ahmedzai Cardiology Gurwinder Ahmedzai Cardiology New Patient Sathya jeffrey MD Cardiology New Patient Sathya jeffrey MD Cardiology New Patient Sathya jeffrey MD Cardiology New Patient Sathya jeffrey MD Date Name CT Angio Chest (PE P rotocol) Sleep Study Home Vitamin D, 25-Hydrox y THYROID PANEL WITH T SH, 3RD GENERATION LIPID PANEL HEMOGLOBIN A1c CBC (H/H, RBC, INDIC ES, WBC, PLT) COMPREHENSIVE METABO LIC PANEL, W/EGFR Venous Doppler Bilat eral LE - Reflux Stress Routine Complete Echo HISTORY OF PROCEDURES Procedure Date Procedure Name Provider Procedure Notes S tatus Complex e/m visit add on Sathya Renee MD completed EKG Sathya Renee MD completed Stress EKG Jose Russell MD completed EKG Sathya Renee MD completed
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
--- OUTSIDE RECORDS SUMMARY | 2024-04-28 13:22 | XMS_ITS | Clinical Summary ---
Author Organization [facility] Address [address] [place] [address] Care Team Providers Care Lubrication Technician Name Role Phone Shefali Guevara MD Primary [...] 11/29/2021 4:51 PM CDT Plan of Treatment Health Maintenance Due Date Last Done Comments Breast Cancer Screening-Mammogram 1984 Cervical Cancer Screening 1984 Depression Screening 1984 Varicella Vaccines (1 of 2 - 13+ 2-dose series) 1997 Hepatitis B Screening 2002 Regular Well Visit/Exam 18-64 2002 Influenza Vaccine (#1) 2023 0, 01/19/2019 DTaP/Tdap/Td Vaccine (3 - Td or Tdap) 11/30/2031 11/29/2021, 11/07/2018 Hepatitis C Screening Completed 11/29/2021 HPV Vaccines Aged Out No longer eligi ble based on patient's age to complete this topic Pneumococcal vaccine <65 Aged Out No longer eligible based on patient's age to complete this topic Procedures Procedure Name Priority Date/Time Associated Diagnosis Comments HEPATITIS PANEL, ACUTE STAT 11/29/2021 5:14 PM CDT from Last 3 Months or Most Recently Relevant to Health Maintenance Results * Hepatitis panel, acute (11/29/2021 5:14 PM CDT) Hep A IgM Nonreactive Nonreactive [facility] Comment: Interpretive Data: If Hep A IgM Ab is reported as Equivocal, a new sample should be drawn in two weeks for testing. Current interpretive data was last revised on 19. Hep B core IgM Nonreactive Nonreactive [facility] Comment: Interpretive Data If HepB Core IgM Ab is reported as Equivocal, a new sample should be drawn in two weeks for testing. Current interpretive data was last revised on 19. Hep C Ab Nonreactive Nonreactive [facility] Comment: Interpretive Data Nonreactive: Antibodies to HCV [...] last revised on 2019. HepBsAg Nonreactive Nonreactive [facility] Blood 11/29/2021 5:14 PM CDT 11/29/2021 5:16 PM CDT [facility] MICROBIOLOGY - GENERAL ORDER MARTÍN Final Result [facility] [address] [facility] [place] [address] from Last 3 Months or Most Recently Relevant to Health Maintenance Insurance IDPA [facility] CHOICE PLUS [facility] H[facility]/PPO Address: [address] [address] [place] [address] IDPA [facility] CHOICE PLUS [facility] H[facility]/PPO Address: [address] [address] [place] [address] Care Teams Lubrication Technician Relationship Specialty Start Date End Date Shefali Guevara MD [address] [place] [address] DR RANDALL [address] [place] [address] PCP - General Family Medicine 11/29/21
[2024-04-29 20:08] LABS: Lupus dRVVT Screen 38 sec (< OR = 45); PTT-LA Screen 38 sec (< OR = 40)
[2024-04-30 03:48] LABS: SS-A <1.0 NEG AI (<1.0 NEG); SS-B <1.0 NEG AI (<1.0 NEG)
[2024-05-01 10:38] LABS: Anti Cardio Antibody IgM <2.0 MPL-U/mL; Anti Cardiolipin Antibody IgA <2.0 APL-U/mL; Anti Cardiolipin Antibody IgG <2.0 GPL-U/mL
[2024-05-06 12:19] LABS: Factor V (Leiden) Mutation NEGATIVE
== END 2024-04-28 12:28 | disposition home or self-care (01) ==
LOC: ANHLAB 12:32
PROVIDERS: Visit Provider Obstetrics & Gynecology Maternal & Fetal Medicine
DX: O09.522 Supervision of elderly multigravida, second trimester (principal); Z86.711 Personal history of pulmonary embolism; Z3A.16 16 weeks gestation of pregnancy; Z13.79 Encounter for other screening for genetic and chromosomal anomalies
CPT/HCPCS: 36415; 81240; 81241; 85301; 85302; 85303; 85306; 85597; 85598; 85613; 85670; 85730; 86146; 86147; 86235

== ENCOUNTER 2024-06-29 10:30 | Outpatient (CLI) | payer OTHER, MEDICAID, SELFPAY ==
--- OUTSIDE RECORDS SUMMARY | 2024-06-29 11:39 | XMS_ITS | Clinical Summary ---
Author Organization [facility] Address [address] [facility] [place] [address] Care Team Providers Care Senior Facilities Manager Name Role Phone Shefali Guevara MD Primary Care Provider [phone] Source Comments [facility],non-owned Affiliates and Associated Physician Practices is amultiple site organization consisting of ambulatory clinics and hospital sitesin [place], [place], [place] and [place]. This disclosure is being madepursuant to the Care Everywhere program and may not contain all information available regarding this patient. Last updated [employer] [facility] Allergies No known active allergies Medications * Be aware that medications may not be up to date on this document. Alwaysverify current medications with the patient. Medication Sig Dispensed Refills Start Date End Date Status Vit-DSS-Fe Fum-FA ( vitamin with iron) tabletIndications: Take 1 (one) tablet by mouth once daily Reasons: Active enoxaparin (Lovenox) 60 MG/0.6ML injectionIndicatio ns:history of pulmonary embolism Inject 0.6 mL subcutaneously every 12 hours Reasons: history of pulmonary embolism Active aspirin (Aspirin) 81 MG chew tabletIndications: Antepartum multigravida of advanced maternal age (HCC),History of pulmonary embolism Take 1 (one) tablet by mouth once daily 100 tablet 1 04/28/2024 Active Active Problems Problem Noted Date Diagnosed Date Encounter for follow-up ultrasound of arely maciej 06/23/2024 Advanced maternal age in multigravida, second tr imester 06/23/2024 History of pulmonary embolism 06/23/2024 Obesity affecting in second trimester 06/23/2024 Anticoagulated 06/23/2024 Estimated Date of Delivery Comme nts Yes 10/11/2024 Based on last me nstrual period of 01/05/2024 Encounters Date Type Department Care Team Description 06/29/[address] [address] Meche Romero Future Appointment 06/23/2024 7:30 AM CDT - 06/23/2024 11:59 PM CDT Hospital Encounter [facility] [address] [place] [address] Head, Ciera Curiel MD Discharge Disposition: Home or Self Care 06/23/[address] [address] Liliya Alcala RN Referral 05/26/2024 8:45 AM APPLE PACKING HEADER - 05/26/2024 11:59 PM APPLE PACKING HEADER Hospital Encounter [facility] [address] [place] [address] Anshul Gates MD Discharge Disposition: Home or Self Care 05/26/2024 8:45 AM APPLE PACKING HEADER - 05/26/2024 11:59 PM APPLE PACKING HEADER Hospital Encounter [facility] [address] [place] [address] Anshul Gates MD Discharge Disposition: Home or Self Care 05/17/2024 Telephone [facility] [address] [place] [address] Marisol Coe RN Medication Check (Called patient to see if she picked up her EMLA cream and started lovenox? ) 05/05/2024 8:24 AM APPLE PACKING HEADER - 05/05/2024 11:59 PM APPLE PACKING HEADER Hospital Encounter [facility] [address] [place] [address] Anshul Gates MD Discharge Disposition: Home or Self Care 05/05/2024 7:30 AM APPLE PACKING HEADER - 05/05/2024 8:23 AM APPLE PACKING HEADER Hospital Encounter [facility] [address] [place] [address] Anshul Gates MD Discharge Disposition: Home or Self Care 05/03/2024 Travel 04/28/2024 9:45 AM APPLE PACKING HEADER Hospital Encounter [facility] [address] [place] [address] Anshul Gates MD Discharge Disposition: Home or Self Care 04/28/2024 9:45 AM APPLE PACKING HEADER Hospital Encounter [facility] [address] [place] [address] Anshul Gates MD Discharge Disposition: Home or Self Care 04/20/2024 Travel 04/12/2024 Telephone [facility] [address] [place] [address] Marisol Coe RN Results (NIPT) 04/06/2024 9:45 AM APPLE PACKING HEADER - 04/06/2024 11:59 PM APPLE PACKING HEADER Hospital Encounter [facility] [address] [place] [address] Fe Maravilla MD Discharge Disposition: Home or Self Care from Last 3 Months Immunizations Name Administration [...] Sign Reading Time Taken Comments Blood Pressure 116/62 06/23/2024 8:21 AM CDT Pulse 97 06/23/2024 8:21 AM CDT Temperature 37.1 C (98.7 F) 11/07/2018 6:48 PM CDT Respiratory Rate 18 11/07/2018 7:15 PM CDT Oxygen Saturation 100% 11/07/2018 6:48 PM CDT Inhaled Oxygen Concentration - - Weight 119.3 kg (263 lb) 06/23/2024 8:21 AM CDT Height 160 cm (5' 3 ) 04/28/2024 10:15 AM APPLE PACKING HEADER Body Mass Index 46.59 04/28/2024 10:15 AM APPLE PACKING HEADER Plan of Treatment Upcoming Encounters Date Type Department Care Team (Late st Contact Info) Description 07/19/2024 11:15 AM CDT Appointment [facility] Care [address] [address] Anshul Gates MD [address] [phone] 07/19/2024 11:15 AM CDT Appointment [address] [address] 07/21/2024 1:45 PM CDT Appointment [facility] [address] [place], [place] [id number] Health Maintenance Due Date Last Done Comments LIPID TESTING 1984 MAMMOGRAM 1984 PAP SMEAR 1984 HIV SCREENING 1999 HEPATITIS B VACCINE (1 of 3 - 19+ 3-dose series) 2003 COVID-19 VACCINE ( - 2023-2 5 season) 2023 DEPRESSION SCREENING 03/31/2024 SCREENING FOR DIABETES 04/28/2024 11/07/2018 OB-ONE HOUR GLUCOSE 07/05/2024 OB-TDAP CURRENT 07/12/2024 11/07/2018 OB-RHOGAM INJECTION 07/19/2024 INFLUENZA VACCINE (Season Ended) 2024 01/19/2020, 01/19/2019 DTAP/TDAP/TD VACCINES (2 - T d or Tdap) 11/07/2028 11/07/2018 ZOSTER VACCINE (1 of 2) 2034 HEPATITIS C SCREENING Completed 11/29/2021 HIB VACCINE Aged Out No longer eligi ble based on patient's age to complete this topic HPV VACCINE Aged Out No longer eligi ble based on patient's age to complete this topic MENINGOCOCCAL (Group B) VACCINE SHARED DECISION-MAKING Aged Out No longer eligible based on patient's age to complete this topic MENINGOCOCCAL GROUPS A/C/Y/W VACCINE Aged Out No longer eligible b ased on patient's age to complete this topic PNEUMOCOCCAL VACCINE Aged Out No long er eligible based on patient's age to complete this topic Respiratory Syncytial Virus (RSV) Vaccine Pt: or over 60 yrs (No Doses Required) Completed Procedures Procedure Name Priority Date/Time Associated Diagnosis Comments SONOGRAM - COMPLETE Routine 06/23/2024 7:29 AM CDT Encounter for follow-up ultrasound of anatomy Advanced maternal age in multigravida, second trimester History of pulmonary embolism Obesity affecting in second trimester, unspecified obesity type 24 weeks gestation of Anticoagulated SONOGRAM - COMPLETE Routine 05/26/2024 8:50 AM APPLE PACKING HEADER Encounter for follow-up ultrasound of anatomy Advanced maternal age in multigravida, second trimester History of pulmonary embolism Obesity affecting in second trimester, unspecified obesity type 19 weeks gestation of SONOGRAM - COMPLETE Routine 05/05/2024 7:38 AM APPLE PACKING HEADER Encounter for ultrasound Advanced maternal age in multigravida, second trimester History of pulmonary embolism Obesity affecting in second trimester, unspecified obesity type 17 weeks gestation of SONOGRAM - COMPLETE Routine 04/28/2024 11:39 AM APPLE PACKING HEADER Encounter for ultrasound Advanced maternal age in multigravida, second trimester SONOGRAM - COMPLETE Routine 04/06/2024 10:29 AM APPLE PACKING HEADER Obesity, morbid, BMI 40.0-49.9 Antepartum multigravida of advanced maternal age Fourth 13 weeks gestation of BASIC METABOLIC PANEL (CALCIUM TOTAL) STAT 11/07/2018 6:55 PM CDT from Last 3 Months or Most Recently Relevant to Health Maintenance Results * SONOGRAM - COMPLETE (06/23/2024 7:29 AM CDT) Only the most recent of5 resultswithin the time period is included. Linked Results Indication ======== Incomplete anatomy screen Complete Posterior Placenta Previa AMA 40 years with low-risk cf-DNA Obesity class III, Pulmonary embolism in August 2023 heart rate (FHR) was sustained 61 bpm at 16 week U/S History ====== OB History 4. Para 2 [id number] 1. live 2006. Gest. age 40 w + 0 d. Weight 2,721 g. Sex of child: female. Details: 2. live 2008. Gest. age 40 w + 0 d. Weight 2,721 g. Sex of child: female. Details: 3. elective termination Lab Tests Test Date Result NIPT Low risk Maternal Assessment Physical Exam Height 160 cm, 5 ft 3 in. Weight 119 kg, 263 lb. Initial weight 123 kg, 272 lb. BMI 46.59 kg/m . Initial BMI 48.18 kg/m . Weight gain -4 kg, -9 lb Method ====== Transabdominal and transvaginal ultrasound. View: Good view ========= Mars . Number of fetuses: 1 Dating ====== Date Details Gest. age YASIR LMP 01/05/2024 24 w + 2 d 10/11/2024 U/S 06/23/2024 based upon AC, BPD, Femur, HC 24 w + 3 d 10/10/2024 Assigned dating based on the LMP, selected on 04/06/2024 24 w + 2 d 10/11/2024 General Evaluation Cardiac activity present. FHR 120 bpm. Presentation: transverse, head maternal right Placenta: Placental site: posterior, low-lying Umbilical cord: Insertion site: normal insertion Amniotic fluid: Amount of AF: normal. MVP 6.3 cm Biometry BPD 58.8 mm 24w 0d 34% Hadlock HC 217.0 mm 23w 5d 15% Hadlock AC 201.0 mm 24w 5d 56% Hadlock Femur 46.4 mm 25w 3d 73% Hadlock Humerus 40.0 mm 24w 2d 41% Aundrea HC / AC 1.08 Weight Calculation: EFW 742 g 66% Hadlock EFW (lb,oz) 1 lb 10 oz EFW by Hadlock ([id number]) appropriate Growth Overview Exam date GA BPD (mm) HC (mm) AC (mm) FL (mm) HL (mm) EFW (g) 04/28/2024 16w 2d 34 59% 123.7 32% 104.3 55% 26.2 94% 179 87% 05/26/2024 20w 2d 46.2 36% 172.3 21% 160.6 73% 35.2 71% 31.2 56% 389 80% 06/23/2024 24w 2d 58.8 34% 217 15% 201 56% 46.4 73% 40 41% 742 66% Anatomy The following structures appear normal: Head / Neck Cranium. Heart / Thorax 4-chamber view. 5-sacfgf-gyjynzh view. Abdomen Cord insertion. Stomach. Kidneys. Bladder. The following structures were documented previously: Head / Neck Lateral ventricles. Choroid plexus. Midline falx. Cavum septi pellucidi. Cerebellum. Cisterna magna. Face Lips. Profile. Nose. Orbits. Heart / Thorax RVOT view. LVOT view. 3-vessel view. Situs. Aortic arch view. Bicaval view. Ductal arch view. Great vessels. Right lung. Left lung. Diaphragm. Abdomen Genitals. Spine Cervical spine. Thoracic spine. Lumbar spine. Sacral spine. Extremities / Skeleton Arms. Hands. Legs. Feet. sex: female. Maternal Structures Cervix reassuring Approach - Transvaginal: Cervical length 4.70 cm Low Lying Placenta 1.7cm Impression ========= Single, live, intrauterine at 24w 2d size is appropriate Amniotic fluid volume: normal Transvaginal cervical length is reassuring Low-lying placenta previa measuring 1.7cm from internal os No major malformations were seen within the limits of ultrasound Follow-up ======== Follow up ultrasound in 4 weeks for growth and cervical length assessment to reassess placental location. Coding ====== Procedures 54425: [place] [address]: [place] Preg Uterus Transvaginal Assurely PACS Anatomical Region Laterality Modality Other 06/23/2024 7:29 AM CDT Jesús Shepard MD [facility] ORDERABLES * (ABNORMAL) BASIC METABOLIC PANEL (CALCIUM TOTAL) (11/07/2018 6:55 PM CDT) BUN 14 7 - 26 mg/dL 11/07/2018 7:14 PM [facility] Creatinine 0.8 0.6 - 1.2 mg/dL 11/07/2018 7:14 PM [facility] Sodium 142 136 - 145 mmol/L 11/07/2018 7:14 PM [facility] Potassium 3.4(L) 3.5 - 4.5 mmol/L 11/07/2018 7:14 PM [facility] Chloride 110(H) 98 - 107 mmol/L 11/07/2018 7:14 PM [facility] CO2 18(L) 22 - 29 mmol/L 11/07/2018 7:14 PM [facility] Glucose 100 70 - 115 mg/dL 11/07/2018 7:14 PM [facility] Calcium 8.9 8.4 - 10.2 mg/dL 11/07/2018 7:14 PM [facility] Anion Gap 17 8 - 18 11/07/2018 7:14 PM [facility] BUN/Creatinine Ratio 18 7 - 23 11/07/2018 7:14 PM [facility] Osmolality Calculated 295 270 - 300 mOsm/kg 11/07/2018 7:14 PM [facility] eGFR >60 >60 mL/min/1.7 3 m2 11/07/2018 7:14 PM [facility] Blood BLOOD SPECIMEN / Unknown Venipuncture / Unknown 11/07/2018 6:55 PM CDT 11/07/2018 6:58 PM CDT Vicente Ivey DO LAB - CHEMISTRY [facility] [address] [place] [address], [facility] [phone] from Last 3 Months or Most Recently Relevant to Health Maintenance Care Teams Senior Facilities Manager Relationship Specialty Start Date End Date Shefali Guevara MD [address] [place] [address] [place] [phone] PCP - General Family Medicine 11/07/18
--- OUTSIDE RECORDS SUMMARY | 2024-06-29 11:39 | XMS_ITS | CONTINUITY OF CARE DOCUMENT ---
Author Name daphnie, daphnie Address Unknown Organization [facility] Address [address] [place] [address] Phone [phone] Care Team Providers Care Contract Forester Name Role Phone Víctor GUTHRIE, Sathya Unavailable JOSELYN SERVINP MARIA LMARCUS Unavailable [phone] COLT BOSWELL Unavailable [phone] PROBLEMS Condition Status Date Provider Notes Family History of CVA or Stroke: active ? Derek Renee MD Family History of Hyperlipidemia: active ? To joselo Renee MD Family History of Hypertension: active ? Brian Renee MD Chest pain-type to be determined active Derek Renee MD Shortness of breath active Sathya Renee MD Swelling of bilateral legs active Sathya jeffrey MD Morbid obesity active Sathya Renee MD Pulmonary embolism active Gurwinder Ahmedzai Sleep disorder active Gurwinder Ahmedzai RONDA--on cpap active Gurwinder Ahmedzai ENCOUNTERS Date Type Provider Location Encounter Diag nosis - In-person encounter Office Visit Sathya Renee MD [place] [facility] RONDA--on cpap - In-person encounter Office Visit Sathya Renee MD [place] [facility] Pulmonary embolismSleep disorder - In-person encounter Office Visit Sathya Renee MD [place] [facility] Family History of CVA or Stroke:Family History of Hyperlipidemia:Family History of Hypertension:Chest pain-type to be determinedShortness of breathSwelling of bilateral legsMorbid obesity VITAL SIGNS Date Observation Value Provider Body Mass Index (Ratio) 45.70 kg/m2 Brian Renee MD pulse rate 77 /min Eva Fofana blood pressure, cuff size large Elijah smith [place] blood pressure, diastolic 68 mm[Hg] [facility], systolic 118 mm[Hg] Tab [facility] [place] oxygen saturation, oximetry 99 % [facility] weight E&M 258 [lb_av] Eva Monson respiratory rate E&M 12 /min [facility] height E&M 63 [in_i] [facility] Body Mass Index (Ratio) 46.23 kg/m2 [...] blood pressure, diastolic 76 mm[Hg] Da deja [place] blood pressure, systolic 122 mm[Hg] Dac ia Jam oxygen saturation, oximetry 98 % Karoline Jam respiratory rate E&M 16 /min Karoline V oss pulse rate 73 /min Karoline Jam weight E&M 268 [lb_av] Karoline Jam height E&M 63 [in_i] [facility] ALLERGIES Allergy Name Onset Date Reaction Criticality [...] 0-149 3 cholesterol, serum 134 mg/dL [employer] [phone]/03/2 3 platelet count 308 X10E3/UL [employer] [phone]/03/2 3 red blood cell distribution width 13.8 [...] 3.5-5.2 3 sodium, serum 140 mmol/L [employer] [phone]/03/2 3 urea nitrogen/creatinine ratio, serum 13 [employer] [...] Payer name Policy type / Coverage type [place] red republican ID [facility] Other [id number] [facility] Medicaid 0 [id number] ADVANCE DIRECTIVES Name Date DISCUSSED - NO DECISION MADE TREATMENT PLAN Date Name Performer Cardiology:This visi t has been a part of the consistent, comprehensive, and ongoing management of the chronic medical condition(s) listed above for the patient. Orders: C T Angio Chest (PE Protocol) ([id number]) Sathya Renee MD Cardiology Gurwinder penelope Cardiology Gurwinder penelope Cardiology Gurwinder penelope Cardiology: O rders: C T Angio Chest (PE Protocol) (CPT-[id number]) Gurwinder medzacarmelita Cardiology Gurwinder Ahmedzai Cardiology: O rders: S leep Study Home ([id number]) Gurwinder Davilamedzacarmelita Cardiology Gurwinder Ahmedzai Cardiology Gurwinder [...]
--- OUTSIDE RECORDS SUMMARY | 2024-06-29 11:39 | XMS_ITS | Clinical Summary ---
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 Care Autism Specialist Name Role Phone Unavailable Primary Care Provider Unavailabl e Social History Tobacco Use Types Packs/Day Years Used Date Smoking Tobacco: Never Assessed Comments Unknown Sex and Gender Information Value Date Recorded Sex Assigned at Not on file Legal Sex Female 1:32 PM IMPROVEMENT LEADER Gender Identity Not on file Sexual Orientation [...]
--- OUTSIDE RECORDS SUMMARY | 2024-06-29 11:39 | XMS_ITS | Encounter Summary ---
Author Organization [facility] Address [address] [place] [address] Care Team Providers Care Teletypewriter Operator Name Role Phone Shefali Guevara MD Primary Care Provider [phone] Reason for Visit * Reason Onset Date Comments Future Appointment 06/29/2024 Encounter Details Date Type Department Care Team ([facility] Contact Info) Description 06/29/[address] [address] Meche Romero Future Appointment Social History Tobacco Use Types Packs/Day Years [...] on file documented as of this encounter Miscellaneous Notes * Telephone Encounter - Meche Romero - 06/29/2024 9:05 AM CDT Scheduled patient echo 07/19 @ 11:15 am. Verified insurance and demographics. Instructions sent via [employer]. documented in this encounter Plan of Treatment Upcoming Encounters Date Type Department Care Team ([facility] Contact Info) Description 07/19/2024 11:15 AM CDT Appointment [address] [address] Anshul Gates MD [address] [facility] [address] [place] [phone] 07/19/2024 11:15 AM CDT Appointment [facility] [place] [address] [place] [address] 07/21/2024 1:45 PM CDT Appointment [facility] [address] [place] [address] documented as of this encounter Visit Diagnoses Not on filedocumented in this encounter Care Teams Teletypewriter Operator Relationship Specialty Start Date End Date Shefali Guevara MD [address] [place] [address] [place] [address] PCP - General Family Medicine 11/07/18 documented as of this encounter
--- OUTSIDE RECORDS SUMMARY | 2024-06-29 11:39 | XMS_ITS | Referral Summary ---
Author Organization [facility] Address [address] [place] [address] Care Team Providers Care Field Handyman Name Role Phone Shefali Guevara MD Primary [...] 10:18 AM CDT): Resume home venlafaxine/topiramate Immunizations Immunization Administration Dates Next Due Tdap 11/29/2021 Social [...] 73 09/15/2023 10:00 AM CDT Temperature 36.9 C (98.4 F) 09/15/2023 3:50 AM CDT Respiratory Rate 25 09/15/2023 10:00 AM CDT Oxygen Saturation 100% 09/15/2023 10:00 AM CDT Inhaled Oxygen Concentration - - Weight 117.9 kg (260 lb) 09/15/2023 12:57 AM CDT Height 160 cm (5' 3 ) 11/29/2021 4:51 PM CDT Body Mass Index [...] 19. Hep B core IgM Nonreactive Nonreactive [facility] Comment: Interpretive Data If HepB Core IgM Ab is reported as Equivocal, a new sample should be drawn in two weeks for testing. Current interpretive data was last revised on 19. Hep C Ab Nonreactive Nonreactive [facility] Comment: Interpretive Data Nonreactive: Antibodies to HCV not detected. Does NOT exclude the possibility of recent exposure to HCV. Equivocal: Equivocal for HCV antibodies. Supplemental molecular testing will be automatically performed to determine infection status in accordance with current CDC screening recommendations. Reactive: Positive for HCV antibodies. This may represent current or past HCV infection. Supplemental molecular testing will be automatically performed to determine current infection status in accordance with current CDC screening recommendations. Interpretive data was last revised on 2019. HepBsAg Nonreactive Nonreactive [facility] Blood 11/29/2021 5:14 PM CDT 11/29/2021 5:16 PM CDT I[facility] MICROBIOLOGY - GENERAL ORDER MARTÍN Final Result [facility] [address] [facility] Department of Laboratories [place], [place] [id number] from Last 3 Months or Most Recently Relevant to Health Maintenance Insurance IDPA [facility] CHOICE PLUS IDPA [facility] CHOICE PLUS Member Subscriber Plan / Payer (Ef fective 2022-Present) Name:Johanny Cesar Relation to Subscriber:Self Name:Jermaine Cesaroren Payer ID:[id number] (NAIC) Type:[facility] HMO/PPO Address: [place] [phone] Care Teams Field Handyman Relationship Specialty Start Date End Date Shefali Guevara MD [address] [place] [address] [facility] [place] [address] PCP - General Family Medicine 11/29/21
--- OUTSIDE RECORDS SUMMARY | 2024-06-29 11:39 | XMS_ITS | Clinical Summary ---
Author Organization [facility] Address [facility] [place] [address] Care Team Providers Care Managed Care Manager Name Role Phone Unavailable Primary Care Provider [...] Cancer Screening with HPV 2014 COVID-19 Vaccine ( - 2023-2 5 season) 2023 Influenza Adult (#1) 2023 [...]
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
--- OUTSIDE RECORDS SUMMARY | 2024-06-29 11:39 | XMS_ITS | Clinical Summary ---
Author Organization [facility] Address [address] [place] [address] Care Team Providers Care Gold Plater Name Role Phone Shefali Guevara MD Primary [...] PM CDT) Hep A IgM Nonreactive Nonreactive [facility] Comment: Interpretive Data: If Hep A IgM Ab is reported as Equivocal, a new sample should be drawn in two weeks for testing. Current interpretive data was last revised on 19. Hep B core IgM Nonreactive Nonreactive [facility] Comment: Interpretive Data If HepB Core IgM Ab is reported as Equivocal, a new sample should be drawn in two weeks for testing. Current interpretive data was last revised on 19. Hep C Ab Nonreactive Nonreactive [facility] Comment: Interpretive Data Nonreactive: Antibodies to HCV [...] last revised on 2019. HepBsAg Nonreactive Nonreactive [facility] Blood 11/29/2021 5:14 PM CDT 11/29/2021 5:16 PM CDT us [facility]CRO[facility]OLOG[facility] - GENERAL ORDER MARTÍN Final Result ALFONSO [facility] [address] [facility] [place] [address] from Last 3 Months or Most Recently Relevant to Health Maintenance Insurance [facility] CHOICE PLUS [employer] [facility] CHOICE PLUS Care Teams Gold Plater Relationship Specialty Start Date End Date Shefali Guevara MD [address] [place] [address] [address] PCP - General Family Medicine 11/29/21
[2024-06-29 11:58] LABS: Free T4 Free Thyroxine 0.71 ng/dL (0.78-2.19)
== END 2024-06-29 10:31 | disposition home or self-care (01) ==
LOC: ANHLAB 10:33
PROVIDERS: Visit Provider Obstetrics & Gynecology Maternal & Fetal Medicine
DX: O09.522 Supervision of elderly multigravida, second trimester (principal); Z86.711 Personal history of pulmonary embolism; O99.212 Obesity complicating pregnancy, second trimester; Z3A.17 17 weeks gestation of pregnancy
CPT/HCPCS: 36415; 84439; 84443

== ENCOUNTER 2024-08-13 08:53 | Outpatient (CLI) | payer OTHER, MEDICAID, SELFPAY ==
--- OUTSIDE RECORDS SUMMARY | 2024-08-13 09:05 | XMS_ITS | Clinical Summary ---
Author Organization [facility] Address [facility] [place] [address] Care Team Providers Care Grave Digger Name Role Phone Unavailable Primary Care Provider [...] Vaccine ( - 2023-2 5 season) 2023 Mammogram Screening 2024 HPV Vaccines Aged [...] 5 Years) and At-Risk Patients (6 to 49 Years) Aged Out No longer eligible b ased on patient's age to complete this topic RSV Immunizations Under 20 Months Aged Out No longer eligible based on patient's age to complete this topic
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
--- OUTSIDE RECORDS SUMMARY | 2024-08-13 09:06 | XMS_ITS | CONTINUITY OF CARE DOCUMENT ---
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 Brian Renee MD Family History of Hyperlipidemia: active ? To joselo Renee MD Family History of CVA or Stroke: active ? Derek Renee MD ENCOUNTERS Date Type Provider Location Encounter Diag nosis - In-person encounter Office Visit Sathya Renee MD [facility] RONDA--on cpap - In-person encounter Office Visit Sathya Renee MD [facility] Pulmonary embolismSleep disorder - In-person encounter Office Visit Sathya Renee MD [facility] Family History of CVA or Stroke:Family History of Hyperlipidemia:Family History of Hypertension:Chest pain-type to be determinedShortness of breathSwelling of bilateral legsMorbid obesity VITAL SIGNS Date Observation Value Provider Body Mass Index (Ratio) 45.70 kg/m2 Brian Renee MD pulse rate 77 /min Eva Fofana blood pressure, cuff size large Elijah smith [place] blood pressure, diastolic 68 mm[Hg] [facility], [facility] 118 mm[Hg] Tab [facility] [place] oxygen saturation, oximetry 99 % [facility] weight E&M 258 [lb_av] Eva [place] respiratory rate E&M 12 /min [facility] height E&M 63 [in_i] [facility] Body Mass Index (Ratio) 46.23 kg/m2 [...] blood pressure, diastolic 76 mm[Hg] Da deja [place] blood pressure, systolic 122 mm[Hg] Dac ia Jam oxygen saturation, oximetry 98 % Karoline Jam respiratory rate E&M 16 /min Karoline V oss pulse rate 73 /min Karoline Jam weight E&M 268 [lb_av] Karoline Jam height E&M 63 [in_i] [facility] ALLERGIES Allergy Name Onset Date Reaction Criticality [...] 0-149 3 cholesterol, serum 134 mg/dL [employer] 862-143 9538/03/2 3 platelet count 308 X10E3/UL [employer] 985-737 6635/03/2 3 red blood cell distribution width 13.8 [...] 3.5-5.2 3 sodium, serum 140 mmol/L [employer] 815-750 1279/03/2 3 urea nitrogen/creatinine ratio, serum 13 [employer] [...] Payer name Policy type / Coverage type [place] [employer] party ID [facility] Other [id number] [facility] Medicaid 0 [id number] ADVANCE DIRECTIVES Name Date DISCUSSED - NO DECISION MADE TREATMENT PLAN Date Name Performer Cardiology:This visi t has been a part of the consistent, comprehensive, and ongoing management of the chronic medical condition(s) listed above for the patient. Orders: C T Angio Chest (PE Protocol) (CPT-[id number]) Sathya Renee MD Cardiology Gurwinder penelope Cardiology Gurwinder penelope Cardiology Gurwinder penelope Cardiology: O rders: C T Angio Chest (PE Protocol) (CPT-[id number]) Gurwinder medzacarmelita Cardiology Gurwinder Ahmedzai Cardiology: O rders: S leep Study Home (CPT-69262) Gurwinder Davilamedzacarmelita Cardiology Gurwinder Ahmedzai Cardiology Gurwinder [...]
--- OUTSIDE RECORDS SUMMARY | 2024-08-13 09:06 | XMS_ITS | Clinical Summary ---
Author Organization [facility] Address [address] [place] [address] Care Team Providers Care Executive Asst Name Role Phone Shefali Guevara MD Primary [...] Regular Well Visit/Exam 18-64 2002 Influenza Vaccine (Season Ended) 2024 01/19/2020, 01/19/2019 DTaP/Tdap/Td Vaccine (3 - Td or [...] CDT) Hep A IgM Nonreactive Nonreactive [facility] Comment: Interpretive Data: If Hep A IgM Ab is reported as Equivocal, a new sample should be drawn in two weeks for testing. Current interpretive data was last revised on 19. Hep B core IgM Nonreactive Nonreactive [facility] Comment: Interpretive Data If HepB Core IgM Ab is reported as Equivocal, a new sample should be drawn in two weeks for testing. Current interpretive data was last revised on 19. Hep C Ab Nonreactive Nonreactive [facility] Comment: Interpretive Data Nonreactive: Antibodies to [...] revised on 2019. HepBsAg Nonreactive Nonreactive [facility] Blood 11/29/2021 5:14 PM CDT 11/29/2021 5:16 PM CDT us Ileana [facility] MICROBIOLOGY - GENERAL ORDER MARTÍN Final Result [facility]FONSO [facility] [address] [facility] Department [place] [address] from Last 3 Months or Most Recently Relevant to Health Maintenance Insurance [employer] [facility] CHOICE PLUS [employer] [facility] CHOICE PLUS Care Teams Executive Asst Relationship Specialty Start Date End Date Shefali Guevara MD [address] [place] [address] [address] PCP - General Family Medicine 11/29/21
--- OUTSIDE RECORDS SUMMARY | 2024-08-13 09:06 | XMS_ITS | Clinical Summary ---
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
--- OUTSIDE RECORDS SUMMARY | 2024-08-13 09:06 | XMS_ITS | Clinical Summary ---
Author Organization [facility] Address [address] [facility] [place] [address] Care Team Providers Care Mortgage Clerk Name Role Phone Shefali Guevara MD Primary Care Provider [phone] Source Comments [facility],non-owned Affiliates and Associated Physician Practices is amultiple site organization consisting of ambulatory clinics and hospital sitesin [place], [place], [place] and [place]. This disclosure is being madepursuant to the Care Everywhere program and may not contain all information available regarding this patient. Last updated [facility] Allergies No known active allergies Medications * Be aware that medications may not be up to date on this document. Alwaysverify current medications with the patient. Vit-DSS-Fe Fum-FA ( vitamin with iron) tabletIndication s: Take 1 (one) tablet by mouth once daily Reasons: Active enoxaparin (Lovenox) 60 MG/0.6ML injectionIndicat ions:history of pulmonary embolism Inject 0.6 mL subcutaneously every 12 hours Reasons: history of pulmonary embolism Active aspirin (Aspirin) 81 MG chew tabletIndication s:Antepartum multigravida of advanced maternal age (HCC),History of pulmonary embolism Take 1 (one) tablet by mouth once daily 100 tablet 1 04/28/19 25 Active Active Problems Problem Noted Date Diagnosed Date Encounter for follow-up ultrasound of arely maciej 06/23/2024 Advanced maternal age in multigravida, second tr imester 06/23/2024 History of pulmonary embolism 06/23/2024 Obesity affecting in second trimester 06/23/2024 Anticoagulated 06/23/2024 Estimated Date of Delivery Comme nts Yes 10/11/2024 Based on last me nstrual period of 01/05/2024 Encounters Date Type Department Care Team Description 07/21/2024 1:39 PM CDT - 07/21/2024 11:59 PM CDT Hospital Encounter [facility] [address] [place] [phone] Anshul Gates MD Discharge Disposition: Home or Self Care 07/19/2024 11:15 AM CDT Hospital Encounter [address] [address] Shruti Correa MD Discharge Disposition: Home or Self Care 07/19/2024 11:15 AM CDT Hospital Encounter [address] [address] Anshul Gates MD Reddy, Chetana M, MD Discharge Disposition: Home or Self Care 06/30/2024 Telephone [facility] [address] [place] [phone] Marisol Coe RN Results (Thyroid lab results/) 06/29/[address] [address] Meche Romero Future Appointment 06/23/2024 7:30 AM CDT - 06/23/2024 11:59 PM CDT Hospital Encounter [facility] [address] [place] [address] Head, Ciera Curiel MD Discharge Disposition: Home or Self Care 06/23/[address] [address] Liliya Alcala RN Referral 05/26/2024 8:45 AM ACQUISITION MANAGER - 05/26/2024 11:59 PM ACQUISITION MANAGER Hospital Encounter [facility] [address] [place] [phone] Anshul Gates MD Discharge Disposition: Home or Self Care 05/26/2024 8:45 AM ACQUISITION MANAGER - 05/26/2024 11:59 PM ACQUISITION MANAGER Hospital Encounter [facility] [address] [place] [address] Anshul Gates MD Discharge Disposition: Home or Self Care 05/17/2024 Telephone [facility] [address] [place] [phone] Marisol Coe RN Medication Check (Called patient to see if she picked up her EMLA cream and started lovenox? ) from Last 3 Months Immunizations Immunization Administration Dates Next Due TDAP (7yrs+) 11/07/2018 [...] at Not on file Legal Sex Female 6:46 PM CDT Gender Identity Not on file Sexual Orientation Not on file Last Filed Vital Signs Vital Sign Reading Time Taken Comments Blood Pressure 100/65 07/21/2024 1:56 PM CDT Pulse 83 07/21/2024 1:56 PM CDT Temperature 37.1 C (98.7 F) 11/07/2018 6:48 PM CDT Respiratory Rate 18 11/07/2018 7:15 PM CDT Oxygen Saturation 100% 11/07/2018 6:48 PM CDT Inhaled Oxygen Concentration - - Weight 120.2 kg (265 lb) 07/21/2024 1:56 PM CDT Height 160 cm (5' 3 ) 04/28/2024 10:15 AM ACQUISITION MANAGER Body Mass Index 46.94 04/28/2024 10:15 AM ACQUISITION MANAGER Plan of Treatment Upcoming Encounters Date Type Department Care Team (Late st Contact Info) Description 08/18/2024 7:30 AM CDT Hospital Encounter [facility] [address] [place] [phone] 08/24/2024 10:30 AM CDT [facility] [address] [place] [address] 08/30/2024 8:15 AM CDT Appointment [facility] [address] [place] [address] 09/06/2024 8:15 AM CDT Appointment [facility] [address] [place] [address] 09/13/2024 8:15 AM CDT Appointment [facility] [address] [place] [phone] 09/20/2024 8:15 AM CDT Appointment [facility] [address] [place] [phone] Health Maintenance Due Date Last Done Comments LIPID TESTING 1985 MAMMOGRAM 1985 PAP SMEAR 1984 HIV SCREENING 1999 HEPATITIS B VACCINE (1 of 3 - 19+ 3-dose series) 2003 COVID-19 VACCINE (2023-2 5 season) 2023 DEPRESSION SCREENING 03/31/2024 SCREENING [...] Associated Diagnosis Comments SONOGRAM - COMPLETE Routine 07/21/2024 2 :29 PM CDT Encounter for follow-up ultrasound of anatomy (HCC) Advanced maternal age in multigravida, second trimester (HCC) History of pulmonary embolism Obesity affecting in second trimester, unspecified obesity type (HCC) 24 weeks gestation of (HCC) Anticoagulated ECHO COMPLETE CG Routine 07/19/2024 1:52 PM CDT Advanced maternal age in multigravida, second trimester (HCC) History of pulmonary embolism Obesity affecting in second trimester, unspecified obesity type (HCC) SONOGRAM - COMPLETE Routine 06/23/2024 7 :29 AM CDT Encounter for follow-up ultrasound of anatomy Advanced maternal age in multigravida, second trimester History of pulmonary embolism Obesity affecting in second trimester, unspecified obesity type 24 weeks gestation of Anticoagulated SONOGRAM - COMPLETE Routine 05/26/2024 8 :50 AM ACQUISITION MANAGER Encounter for follow-up ultrasound of anatomy Advanced maternal age in multigravida, second trimester History of pulmonary embolism Obesity affecting in second trimester, unspecified obesity type 19 weeks gestation of BASIC METABOLIC PANEL (CALCIUM TOTAL) STAT 11/07/2018 6:55 PM CDT from Last 3 Months or Most Recently Relevant to Health Maintenance Results * SONOGRAM - COMPLETE (07/21/2024 2:29 PM CDT) Only the most recent of3 resultswithin the time period is included. Linked Results Indication ======== Low-lying posterior placenta AMA 40 years with low-risk cf-DNA Obesity class III, Pulmonary embolism in August 2023 heart rate was sustained 61 bpm at 16 week U/S, echocardiogram WNL History ====== OB History 4. Para 2 [id number] 1. live 2006. Gest. age 40 w + 0 d. Weight 2,721 g. Sex of child: female. Details: 2. live 2008. Gest. age 40 w + 0 d. Weight 2,721 g. Sex of child: female. Details: 3. elective termination Lab Tests Test Date Result NIPT Low risk Maternal Assessment Physical Exam Height 160 cm, 5 ft 3 in. Weight 120 kg, 265 lb. Initial weight 123 kg, 272 lb. BMI 46.94 kg/m . Initial BMI 48.18 kg/m . Weight gain -3 kg, -7 lb Method ====== Transabdominal and transvaginal ultrasound. View: Sufficient ========= Mars . Number of fetuses: 1 Dating ====== Date Details Gest. age YASIR LMP 01/05/2024 28 w + 2 d 10/11/2024 U/S 07/21/2024 based upon AC, BPD, Femur, HC 28 w + 6 d 10/07/2024 Assigned dating based on the LMP, selected on 04/06/2024 28 w + 2 d 10/11/2024 General Evaluation Cardiac activity present. FHR 122 bpm. Presentation: cephalic Placenta: Placental site: left lateral. No previa seen Umbilical cord: Cord vessels: 3 vessel cord Amniotic fluid: Amount of AF: normal. MVP 7.7 cm. SAMANTHA 21.4 cm. Q1 7.7 cm, Q2 3.2 cm, Q3 6.1 cm, Q4 4.5 cm Biometry BPD 70.9 mm 28w 3d 44% Hadlock HC 264.4 mm 28w 5d 33% Hadlock AC 253.7 mm 29w 4d 80% Hadlock Femur 54.2 mm 28w 5d 46% Hadlock Humerus 48.4 mm 28w 3d 47% Aundrea HC / AC 1.04 -/- Hadlock Weight Calculation: EFW 1,338 g 68% Hadlock EFW (lb,oz) 2 lb 15 oz EFW by Hadlock (RDI-DN-DF-FL) appropriate Growth Overview Exam date GA BPD (mm) HC (mm) AC (mm) FL (mm) HL (mm) EFW (g) 04/28/2024 16w 2d 34 59% 123.7 32% 104.3 55% 26.2 94% 179 87% 05/26/2024 20w 2d 46.2 36% 172.3 21% 160.6 73% 35.2 71% 31.2 56% 389 80% 06/23/2024 24w 2d 58.8 34% 217 15% 201 56% 46.4 73% 40 41% 742 66% 07/21/2024 28w 2d 70.9 44% 264.4 33% 253.7 80% 54.2 46% 48.4 47% 1338 68% Anatomy The following structures appear normal: Abdomen Stomach. Kidneys. Bladder. sex: female. Maternal Structures Cervix reassuring Approach - Transvaginal: Cervical length 5.40 cm No Previa Impression ========= Single live intrauterine at 28w 2d The size is appropriate The amniotic fluid volume is subjectively upper-normal No malformations were seen within the limitations of ultrasound Endovaginal U/S to better view placenta & cervix: posterior placenta appears to be clear of internal os Follow-up ======== Follow up ultrasound for growth at 32 weeks Begin 1x-weekly testing (NST+BPP) at 32 weeks Coding ====== Procedures [address]: [place] [address]: US Preg Uterus Transvaginal Kaliki PACS Anatomical Region Laterality Modality Other 07/21/2024 2:29 PM CDT us Jesús Shepard MD [facility] ORDERABLES Edited Result - Final * ECHO COMPLETE CG (07/19/2024 1:52 PM CDT) MV E pk mark 26.48 cm/s [facility] CV F UJI PACS MV A pk mark 41.43 cm/s [facility]SM CV F UJI PACS Anatomical Region Laterality Modality Ultrasound 07/19/2024 11:2 4 AM CDT Narrative 07/19/2024 3:12 PM CDT Name: Susana Cesar Patient Exam Info Gender: Female Patient Status: O/P : 1985 Admit Date: 07/19/2024 Exam Date/Time: 07/19/2024 11:24 AM Site: [facility] Current Location: CARE EStaffOrdering Provider: Anshul Gates Interpreting Physician: Shruti Correa MD Mold Stripper: Jose Thomas [facility] Study Info Procedure: ECHO COMPLETE CG Indications: O09.522 - Advanced maternal age in multigravida, second trimester (HCC) Z36.83 - complicated by Suspected cardiac abnormality Maternal Gestational Status GA by EDC: 28 wks , 0 days EDC: 10/11/2024 Type: Mars Age: 40 yrs Lie: Vertex Summary * The echocardiogram was within normal limits. * Small atrial and ventricular septal defects and persistent ductus arteriosus cannot be excluded as findings. Anatomic Relationships Left sided cardiac apex (levocardia). There is normal visceral-cardiac situs, and normal segmental cardiac anatomical relationship. Systemic Veins There is normal systemic venous return. Pulmonary Veins The visualized pulmonary veins drain normally to the left atrium. Right Atrium The right atrial size is normal. Left Atrium The left atrial size is normal. Atrial Septum Patent foramen ovale with open foramen flap. Color flow is right to left. Right Ventricle The right ventricular cavity size is normal. The right ventricular wall thickness is normal. The right ventricular systolic function is normal. RV Outflow Tract The right ventricular outflow tract is normal. Left Ventricle The left ventricular cavity size is normal. The left ventricular wall thickness is normal. The left ventricular systolic function is normal. Ventricular Septum There is no ventricular septal defect with no shunting. LV Outflow Tract The left ventricular outflow tract is normal. Tricuspid Valve The tricuspid valve is structurally normal. The tricuspid inflow pattern is normal. Tricuspid velocity is within the normal range. There is no tricuspid regurgitation. Mitral Valve The mitral valve is structurally normal. The mitral inflow pattern is normal. Mitral velocity is within the normal range. There is no mitral regurgitation. Aorta aortic arch visualized and is without obstruction by 2D, color flow and Doppler. Pulmonary Arteries The main pulmonary artery is normal, with confluent branch pulmonary arteries. Ductus Arteriosus The antegrade flow velocity and pattern in the ductal arch is normal. A normal ductus arteriosus is appreciated. Doppler Flow in the ductus venosus is normal. The umbilical vein flow pattern is normal. The umbilical artery flow pattern is normal. Hydrops Assessment No pericardial effusion. No ascites present. No pleural effusion(s). Rhythm The rhythm is normal. There is 1:1 AV conduction. Pulmonary Valve The pulmonic valve is normal-sized. The transpulmonic velocity is within normal range. There is no pulmonic regurgitation. Aortic Valve The aortic valve is normal-sized. The transaortic velocity is within normal range. There is no aortic regurgitation. Doppler Measurements (Fetus A) Atrioventricular Valves Name Value Normal Z-Score Percentile Atrioventricular Valves Doppler TV E Peak Velocity 0.3 m/s TV A Peak Velocity 0.5 m/s MV E Peak Velocity 0.3 m/s MV A Peak Velocity 0.4 m/s (Fetus A) Semilunar Valves Name Value Normal Z-Score Percentile Semilunar Valves Doppler AV Peak Velocity () 0.6 m/s (Fetus A) Heart Rate Name Value Normal Z-Score Percentile Heart Rate HR 121 bpm Heart Rate (Doppler) 124 bpm Report Signatures Finalized by Shruti Correa MD on 07/19/2024 03:12 PM Procedure Note Shruti Correa MD - 07/19/2024 Name: Susana Cesar Patient Exam Info Gender: Female Patient Status: O/P : 1985 Admit Date: 07/19/2024 Exam Date/Time: 07/19/2024 11:24 AM Site: [facility] Current Location: CARE EStaffOrdering Provider: Anshul Gates Interpreting Physician: Shruti Correa MD Mold Stripper: Jose Thomas [facility] - Study Info Procedure: ECHO COMPLETE CG Indications: O09.522 - Advanced maternal age in multigravida, second trimester(HCC) Z36.83 - complicated by Suspected cardiacabnormality Maternal Gestational Status GA by EDC: 28 wks , 0 days EDC: 10/11/2024 Type: Mars Age: 40 yrs Lie: Vertex Summary * The echocardiogram was within normal limits. * Small atrial and ventricular septal defects and persistent ductus arteriosus cannot be excluded as findings. Anatomic Relationships Left sided cardiac apex (levocardia). There is normal visceral-cardiac situs, and normal segmental cardiac anatomical relationship. Systemic Veins There is normal systemic venous return. Pulmonary Veins The visualized pulmonary veins drain normally to the left atrium. Right Atrium The right atrial size is normal. Left Atrium The left atrial size is normal. Atrial Septum Patent foramen ovale with open foramen flap. Color flow is right toleft. Right Ventricle The right ventricular cavity size is normal. The right ventricularwall thickness is normal. The right ventricular systolic function is normal. RV Outflow Tract The right ventricular outflow tract is normal. Left Ventricle The left ventricular cavity size is normal. The left ventricular wall thickness is normal. The left ventricular systolic function is normal. Ventricular Septum There is no ventricular septal defect with no shunting. LV Outflow Tract The left ventricular outflow tract is normal. Tricuspid Valve The tricuspid valve is structurally normal. The tricuspid inflow patternis normal. Tricuspid velocity is within the normal range. There is notricuspid regurgitation. Mitral Valve The mitral valve is structurally normal. The mitral inflow pattern is normal. Mitral velocity is within the normal range. There is no mitral regurgitation. Aorta aortic arch visualized and is without obstruction by 2D, colorflow and Doppler. Pulmonary Arteries The main pulmonary artery is normal, with confluent branch pulmonary arteries. Ductus Arteriosus The antegrade flow velocity and pattern in the ductal arch is normal.A normal ductus arteriosus is appreciated. Doppler Flow in the ductus venosus is normal. The umbilical vein flow patternis normal. The umbilical artery flow pattern is normal. Hydrops Assessment No pericardial effusion. No ascites present. No pleural effusion(s). Rhythm The rhythm is normal. There is 1:1 AV conduction. Pulmonary Valve The pulmonic valve is normal-sized. The transpulmonic velocity iswithin normal range. There is no pulmonic regurgitation. Aortic Valve The aortic valve is normal-sized. The transaortic velocity is withinnormal range. There is no aortic regurgitation. Doppler Measurements (Fetus A) Atrioventricular Valves Name Value Normal Z-ScorePercentile Atrioventricular Valves Doppler TV E Peak Velocity 0.3 m/s TV A Peak Velocity 0.5 m/s MV E Peak Velocity 0.3 m/s MV A Peak Velocity 0.4 m/s (Fetus A) Semilunar Valves Name Value Normal Z-ScorePercentile Semilunar Valves Doppler AV Peak Velocity () 0.6 m/s (Fetus A) Heart Rate Name Value Normal Z-ScorePercentile Heart Rate HR 121 bpm Heart Rate (Doppler) 124 bpm Report Signatures Finalized by Shruti Correa MD on 07/19/2024 03:12 PM us Anshul Gates MD ECHO CUPID Final Result * (ABNORMAL) BASIC METABOLIC PANEL (CALCIUM TOTAL) (11/07/2018 6:55 PM CDT) BUN 14 7 - 26 mg/dL 11/07/2018 7:14 PM [facility] Creatinine 0.8 0.6 - 1.2 mg/dL 11/07/2018 7:14 PM [facility] Sodium 142 136 - 145 mmol/L 11/07/2018 7:14 PM [facility] Potassium 3.4(L) 3.5 - 4.5 mmol/L 11/07/2018 7:14 PM [facility] Chloride 110(H) 98 - 107 mmol/L 11/07/2018 7:14 PM [facility] CO2 18(L) 22 - 29 mmol/L 11/07/2018 7:14 PM [facility] Glucose 100 70 - 115 mg/dL 11/07/2018 7:14 PM [facility] Calcium 8.9 8.4 - 10.2 mg/dL 11/07/2018 7:14 PM [facility] Anion Gap 17 8 - 18 11/07/2018 7:14 PM [facility] BUN/Creatinine Ratio 18 7 - 23 11/07/2018 7:14 PM [facility] Osmolality Calculated 295 270 - 300 mOsm/kg 11/07/2018 7:14 PM [facility] eGFR >60 >60 mL/min/1.7 3 m2 11/07/2018 7:14 PM [facility] Blood BLOOD SPECIMEN / Unknown Venipuncture / Unknown 11/07/2018 6:55 PM CDT 11/07/2018 6:58 PM T us Vicente Ivey DO LAB - CHEMISTRY ORDERABLES F inal Result [facility] [address] [place] [address] from Last 3 Months or Most Recently Relevant to Health Maintenance Insurance MEDICAID - [place] LEVEL FUNDED: [facility] AETNA Care Teams Mortgage Clerk Relationship Specialty Start Date End Date Shfeali Guevara MD [address] [place] [address] [place] [id number] PCP - General Family Medicine 11/07/18
[2024-08-13 10:29] LABS: Hematocrit 31.9 % (37.0-47.0); Hemoglobin 10.3 g/dL (12.0-15.0); Mean Corpuscular HGB Conc 32.3 g/dl (32-36); Mean Corpuscular Hemoglobin 31.7 pg (26-34); Mean Corpuscular Volume 98.2 fl (80-100); Mean Platelet Volume 10.6 fl (7.4-10.4); Platelet Count Result 246 k/mm3 (150-375); Red Blood Count 3.25 M/mm3 (4.2-5.4); Red Cell Distribution Width 13.3 % (11.5-14.5); White Blood Count 11.2 K/mm3 (4.5-10.0)
[2024-08-13 10:40] LABS: Glucose 1 Hour PP 50gm Dose 171 mg/dL
[2024-08-13 11:23] LABS: HIV 1/2 Ab P24 Ag Result Negative (Negative)
[2024-08-13 12:00] LABS: Syphilis IgG/IgM Antibody Negative (Negative)
== END 2024-08-13 08:54 | disposition home or self-care (01) ==
LOC: ANHLAB 08:55
PROVIDERS: Visit Provider Obstetrics & Gynecology
DX: Z34.90 Encounter for supervision of normal pregnancy, unspecified, unspecified trimester (principal); Z3A.00 Weeks of gestation of pregnancy not specified
CPT/HCPCS: 36415; 82947; 85027; 86593; 86703; G0432

== ENCOUNTER 2024-08-18 10:57 | Observation (INO) | payer OTHER, MEDICAID, SELFPAY ==
[2024-08-18] VITALS (36 sets, daily range): BP systolic 79–121; BP diastolic 41–65; PULSE 82–132; RESP 20; TEMP 36.8; O2SAT 94–99; BMI 47.0
--- NOTE | ~2024-08-18 | US_ITS ---
EXAMINATION: US OB BPP wo non-stress DATE: 08/18/2024 13:57 INDICATION: Nonreactive nonstress test during third trimester . TECHNIQUE: Real-time pelvic ultrasound was performed. The interpreting radiologist was not present fo r the study. COMPARISON: None. FINDINGS: There is a single living fetus in transverse lie with head to maternal left. The placenta is an terior. heart rate is 124 beats per minute (bpm). Amniotic fluid volume is subjectively normal with normal deepest vertical pocket measurement of 6.3 cm. Biophysical profile performed by the technologist: breathing (30 sec sustained breathing in 30 minutes): 2 out of 2 movement (3 gross body movements in 30 minutes): 2 out of 2 tone (one episode of pzmrozg-vasdxpntd-tvcerim limb movement): 2 out of 2 Amniotic fluid pocket (2 cm): 2 out of 2 Total score: 8 out of 8 IMPRESSION: 1. Single living fetus in transverse lie with heart rate of 124 bpm. 2. Biophysical profile 8 out of 8. Reviewed, dictated and finalized at location A.
--- OUTSIDE RECORDS SUMMARY | 2024-08-18 11:38 | XMS_ITS | CONTINUITY OF CARE DOCUMENT ---
Author Name daphnie, daphnie Address Unknown Organization [facility] Address [address] [place] [address] Phone [phone] Care Team Providers Care Cook Boat Name Role Phone Víctor GUTHRIE, Sathya Unavailable [phone] ALVES AMPOULE INSPECTORTEDDY Unavailable [phone] COLT BOSWELL Unavailable [phone] PROBLEMS Condition Status Date Provider Notes Family History of CVA or Stroke: active ? Derek Renee MD Chest pain-type to be determined active Derek Renee MD Swelling of bilateral legs active Sathya jeffrey MD Pulmonary embolism active Gurwinder Machado RONDA--on cpap active Gurwinder Machado Sleep disorder active Gurwinder Machado Morbid obesity active Sathya Renee MD Shortness of breath active Sathya Renee MD Family History of Hypertension: active ? Brian Renee MD Family History of Hyperlipidemia: active ? To joselo Renee MD ENCOUNTERS Date Type Provider Location Encounter Diag nosis - In-person encounter Office Visit Sathya Renee MD [facility] RONDA--on cpap - In-person encounter Office Visit Sathya Renee MD [facility] Pulmonary embolismSleep disorder - In-person encounter Office Visit Sathya Renee MD [facility] Family History of CVA or Stroke:Family History of Hyperlipidemia:Family History of Hypertension:Chest pain-type to be determinedShortness of breathSwelling of bilateral legsMorbid obesity VITAL SIGNS Date Observation Value Provider Body Mass Index (Ratio) 45.70 kg/m2 Brian Renee MD pulse rate 77 /min Eva Fofana blood pressure, cuff size large Elijah smith [facility] blood pressure, diastolic 68 mm[Hg] [facility], systolic 118 mm[Hg] Tab [facility] oxygen saturation, oximetry 99 % [facility] weight E&M 258 [lb_av] Eva [facility] respiratory rate E&M 12 /min [facility] height E&M 63 [in_i] [facility] Index (Ratio) 46.23 kg/m2 Brian Renee MD blood pressure, diastolic -1 mm[Hg] Sury nkLog blood pressure, systolic 112 mm[Hg] Breann kLogic pulse rate 73 /min Bull blood pressure, diastolic 68 mm[Hg] Jeo rret blood pressure, systolic 112 mm[Hg] Jar [...] blood pressure, diastolic 76 mm[Hg] Da deja [place] blood pressure, systolic 122 mm[Hg] Dac ia Jam oxygen saturation, oximetry 98 % Karoline Jam respiratory rate E&M 16 /min Karoline V oss pulse rate 73 /min Karoline Jam weight E&M 268 [lb_av] Karoline Jam height E&M 63 [in_i] [facility] ALLERGIES Allergy Name Onset Date Reaction [...] 0-149 3 cholesterol, serum 134 mg/dL LinkLogic 502-989 0744/03/2 3 platelet count 308 X10E3/UL [facility] 979-850 9534/03/2 3 red blood cell distribution width 13.8 [...] 3.5-5.2 3 sodium, serum 140 mmol/L [facility] [phone]/03/2 3 urea nitrogen/creatinine ratio, serum 13 LinkLogic [...] Payer name Policy type / Coverage type [place] red democrat ID [facility] Other [id number] [facility] Medicaid 0 [id number] ADVANCE DIRECTIVES Name Date DISCUSSED - NO DECISION MADE TREATMENT PLAN Date Name Performer Cardiology:This visi t has been a part of the consistent, comprehensive, and ongoing management of the chronic medical condition(s) listed above for the patient. Orders: C T Angio Chest (PE Protocol) (CPT-04393) Sathya Renee MD Cardiology Gurwinder penelope Cardiology Gurwinder penelope Cardiology Gurwinder penelope Cardiology: O rders: C T Angio Chest (PE Protocol) (CPT-31286) Gurwinder medzacarmelita Cardiology Gurwinder Ahmedzai Cardiology: O rders: S leep Study Home (CPT-34629) Gurwinder Davilamedzacarmelita Cardiology Gurwinder Ahmedzai Cardiology Gurwinder [...]
--- OUTSIDE RECORDS SUMMARY | 2024-08-18 11:38 | XMS_ITS | Clinical Summary ---
Author Organization [facility] Address [address] [place] [address] Care Team Providers Care Hull Sorter Name Role Phone Shefali Guevara MD Primary [...] PM CDT) Hep A IgM Nonreactive Nonreactive [facility] Comment: Interpretive Data: If Hep A IgM Ab is reported as Equivocal, a new sample should be drawn in two weeks for testing. Current interpretive data was last revised on 19. Hep B core IgM Nonreactive Nonreactive [facility] Comment: Interpretive Data If HepB Core IgM Ab is reported as Equivocal, a new sample should be drawn in two weeks for testing. Current interpretive data was last revised on 19. Hep C Ab Nonreactive Nonreactive [facility] Comment: Interpretive Data Nonreactive: Antibodies to HCV [...] last revised on 2019. HepBsAg Nonreactive Nonreactive [facility] Blood 11/29/2021 5:14 PM CDT 11/29/2021 5:16 PM CDT us Ileana [facility] MICROBIOLOGY - GENERAL ORDER MARTÍN Final Result ALFONSO [facility] [address] [facility] [place] [address] from Last 3 Months or Most Recently Relevant to Health Maintenance Insurance IDPA [facility] CHOICE PLUS IDPA [facility] CHOICE PLUS Care Teams Hull Sorter Relationship Specialty Start Date End Date Shefali Guevara MD [address] [place] [address] [address] PCP - General Family Medicine 11/29/21
--- OUTSIDE RECORDS SUMMARY | 2024-08-18 11:38 | XMS_ITS | Referral Summary ---
Author Organization [facility] Address [address] [place] [address] Care Team Providers Care Electric Solderer Name Role Phone Shefali Guevara MD Primary [...] 19. Hep B core IgM Nonreactive Nonreactive [facility] Comment: Interpretive Data If HepB Core IgM Ab is reported as Equivocal, a new sample should be drawn in two weeks for testing. Current interpretive data was last revised on 19. Hep C Ab Nonreactive Nonreactive [facility] Comment: Interpretive Data Nonreactive: Antibodies to HCV [...] last revised on 2019. HepBsAg Nonreactive Nonreactive [facility] Blood 11/29/2021 5:14 PM CDT 11/29/2021 5:16 PM CDT Ileana [facility] - GENERAL ORDER MARTÍN Final Result ALFONSO [address] [facility] Department of Laboratories [place], [place] [id number] from Last 3 Months or Most Recently Relevant to Health Maintenance Insurance IDPA [facility] CHOICE [facility] HMO/PPO Address: [address] [address] IDPA [facility] CHOICE PLUS [facility] HMO/PPO Address: [place] [id number] Care Teams Electric Solderer Relationship Specialty Start Date End Date Shefali Guevara MD [address] [place] [address] [facility] [place] [address] PCP - General Family Medicine 11/29/21
--- OUTSIDE RECORDS SUMMARY | 2024-08-18 11:38 | XMS_ITS | Clinical Summary ---
Author Organization [facility] Address [address] [place] [address] Care Team Providers Care Hot Dipper Name Role Phone Shefali Guevara MD Primary Care Provider [phone] Source Comments [facility],non-owned Affiliates and Associated Physician Practices is amultiple site organization consisting of ambulatory clinics and hospital sitesin [place], [place], [place] and [place]. This disclosure is being madepursuant to the Care Everywhere program and may not contain all information available regarding this patient. Last updated 17.[employer] [facility] Allergies No known active allergies Medications * [...] Encounters Date Type Department Care Team Description 08/18/2024 7:27 AM CDT Hospital Encounter [facility] [address] [place] [address] Fe Maravilla MD 07/21/2024 1:39 PM CDT - 07/21/2024 11:59 PM CDT Hospital Encounter [facility] [address] [place] [address] Anshul Gates MD Discharge Disposition: Home or Self Care 07/19/2024 11:15 AM CDT Hospital Encounter [address] [address] Shruti Correa MD Discharge Disposition: Home or Self Care 07/19/2024 11:15 AM CDT Hospital Encounter [address] [address] Anshul Gates MD Reddy, Chetana M, MD Discharge Disposition: Home or Self Care 06/30/2024 Telephone [facility] [address] [place] [address] Marisol Coe RN Results (Thyroid lab results/) 06/29/[address] [address] Meche Romero Future Appointment 06/23/2024 7:30 AM CDT - 06/23/2024 11:59 PM CDT Hospital Encounter [facility] [address] [place] [address] Head, Ciera Curiel MD Discharge Disposition: Home or Self Care 06/23/[address] [address] Liliya Alcala RN Referral 05/26/2024 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 - 05/26/2024 11:59 PM 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 Hospital Encounter [facility] [address] [place] [address] Anshul Gates MD Discharge Disposition: Home or Self Care 05/26/2024 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 - 05/26/2024 11:59 PM 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 Hospital Encounter [facility] [address] [place] [address] Anshul Gates MD Discharge Disposition: Home or Self Care from Last 3 Months Immunizations Immunization Administration [...] Sign Reading Time Taken Comments Blood Pressure 104/70 08/18/2024 7:59 AM CDT Pulse 93 08/18/2024 7:59 AM CDT Temperature 37.1 C (98.7 F) 11/07/2018 6:48 PM CDT Respiratory Rate 18 11/07/2018 7:15 PM CDT Oxygen Saturation 100% 11/07/2018 6:48 PM CDT Inhaled Oxygen Concentration - - Weight 120.4 kg (265 lb 6.4 oz) 08/18/2024 7:59 AM CDT Height 160 cm (5' 3 ) 04/28/2024 10:15 AM 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 Body Mass Index 47.01 04/28/2024 10:15 AM 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 Plan of Treatment Upcoming Encounters Date Type Department Care Team (Late st Contact Info) Description 08/24/2024 10:30 AM CDT Hospital Encounter [facility] [address] [place] [address] 08/30/2024 8:15 AM CDT Appointment [facility] [address] [place] [address] 09/06/2024 8:15 AM CDT Appointment [facility] [address] [place] [address] 09/15/2024 7:30 AM CDT Appointment [facility] [address] [place] [address] 09/20/2024 8:15 AM CDT Appointment [facility] [address] [place] [address] 09/27/2024 8:15 AM CDT Appointment [facility] [address] [place] [address] 10/04/2024 7:30 AM CDT Appointment [facility] [address] [place] [address] Health Maintenance Due Date Last Done Comments [...] Procedure Name Priority Date/Time Associated Diagnosis Comments BIOPHYSICAL PROFILE W NST Routine 08/18/2024 7:21 AM CDT Encounter for ultrasound to assess growth (HCC) Advanced maternal age in multigravida, second trimester (HCC) History of pulmonary embolism Obesity affecting in second trimester, unspecified obesity type (HCC) 32 weeks gestation of (HCC) Anticoagulated SONOGRAM - COMPLETE Routine 07/21/2024 2 :29 [...] - COMPLETE Routine 05/26/2024 8 :50 AM 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 Encounter for follow-up ultrasound of anatomy Advanced maternal age in multigravida, second trimester History of pulmonary embolism Obesity affecting in second trimester, unspecified obesity type 19 weeks gestation of BASIC METABOLIC PANEL (CALCIUM TOTAL) STAT 11/07/2018 6:55 PM CDT from Last 3 Months or Most Recently Relevant to Health Maintenance Results * BIOPHYSICAL PROFILE W NST (08/18/2024 7:21 AM CDT) Linked Results Indication ======== AMA 39 years with low-risk cf-DNA Obesity class III, Pulmonary embolism in August 2023 heart rate was sustained 61 bpm at 16 week U/S, echocardiogram WNL History ====== OB History 4. Para 2 [id number] 1. live 2006. Gest. age 40 w [...] -3 kg, -7 lb Method ====== Transabdominal ultrasound examination. View: Sufficient ========= Mars . Number of fetuses: 1 Dating ====== Date Details Gest. age YASIR LMP 01/05/2024 32 w + 2 d 10/11/2024 Assigned dating based on the LMP, selected on 04/06/2024 32 w + 2 d 10/11/2024 General Evaluation Cardiac activity present. FHR 120 bpm. Presentation: transverse, head maternal left Placenta: Placental site: left lateral Umbilical cord: Cord vessels: 3 vessel cord - previously documented. Insertion site: velamentous insertion-previou sly documented Amniotic Fluid Assessment ==== Amount of AF: normal MVP 8.8 cm. SAMANTHA 22.4 cm. Q1 8.8 cm, Q2 4.4 cm, Q3 5.4 cm, Q4 3.7 cm Biophysical Profile 2: breathing movements 2: Gross body movements 2: tone 2: Amniotic fluid volume NST: non-reactive 11/07 Biophysical profile score Non Stress Test NST interpretation: non-reactive. Baseline FHR 120 bpm. Baseline variability: moderate. Accelerations: absent Initial baseline 115 Biometry BPD 84.0 mm 33w 6d 84% Hadlock HC 302.6 mm 33w 4d 48% Hadlock AC 299.7 mm 34w 0d 90% Hadlock Femur 66.9 mm 34w 3d 88% Hadlock Humerus 57.0 mm 33w 1d 76% Aundrea HC / AC 1.01 Weight Calculation: EFW 2,332 g 88% Hadlock EFW (lb,oz) 5 lb 2 oz EFW by Hadlock (SFT-NS-SP-FL) overall normal range, but the AC is >90% Growth Overview Exam date GA BPD (mm) [...] 80% 54.2 46% 48.4 47% 1338 68% 08/18/2024 32w 2d 84 84% 302.6 48% 299.7 90% 66.9 88% 57 76% 2332 88% Anatomy The following structures appear normal: Abdomen Stomach. Kidneys. Bladder. sex: female. Impression ========= Single, live, intrauterine at 32w 2d The growth is overall normal range, however the AC is >90% . The amniotic fluid volume is normal. The biophysical profile is 8/10, -2 NST. However , the tracing is non- reassuring. Comment ======== ultrasound alone cannot detect all structural, genetic, or functional , placental, or maternal abnormalities Follow-up ======== Patient sent to L and D for extended monitoring. Continue testing as planned. Growth US in 4 weeks. Coding ====== Procedures 45102: [place] [address]: Biophysical Profile W NST M2TECH PACS Anatomical Region Laterality Modality Other 08/18/2024 7:21 AM CDT us Jesús Shepard MD [facility] ORDERABLES Edited Result - Final * SONOGRAM - COMPLETE (07/21/2024 2:29 PM CDT) Only the most recent of3 resultswithin the time period is included. Linked Results Indication ======== Low-lying posterior placenta AMA 39 years with low-risk cf-DNA Obesity class III, Pulmonary embolism in August 2023 heart rate was sustained 61 bpm at 16 week U/S, echocardiogram WNL History ====== OB History 4. Para 2 [id number] 1. live 2006. Gest. age 40 w [...] 2 lb 15 oz EFW by Hadlock ([id number]-EB-FL) appropriate Growth Overview Exam date GA BPD [...] (NST+BPP) at 32 weeks Coding ====== Procedures [id number]: [place] [address]: US Preg Uterus Transvaginal Work in Field PACS Anatomical Region Laterality Modality Other 07/21/2024 2:29 PM CDT Jesús Shepard MD [facility] ORDERABLES Edited Result - Final * [...] 07/19/2024 Exam Date/Time: 07/19/2024 11:24 AM Site: [facility] Current Location: CARE EStaffOrdering Provider: Anshul Gates Interpreting Physician: Shruti Correa MD Associate Manager: Jose Thomas [facility] Study Info Procedure: ECHO COMPLETE CG [...] 07/19/2024 Exam Date/Time: 07/19/2024 11:24 AM Site: [facility] Current Location: CARE EStaffOrdering Provider: Anshul Gates Interpreting Physician: Shruti Correa MD Associate Manager: Jose Thomas [facility] Study Info Procedure: ECHO COMPLETE CG Indications: [...] Shruti Correa MD on 07/19/2024 03:12 PM Anshul Gates MD ECHO CUPID Final Result * (ABNORMAL) BASIC METABOLIC PANEL (CALCIUM TOTAL) (11/07/2018 6:55 PM CDT) BUN 14 7 - 26 mg/dL 11/07/2018 7:14 PM [facility] Creatinine 0.8 0.6 - 1.2 mg/dL 11/07/2018 7:14 PM [facility] Sodium 142 136 - 145 mmol/L 11/07/2018 7:14 PM [facility] Potassium 3.4(L) 3.5 - 4.5 mmol/L 11/07/2018 7:14 PM [facility] Chloride 110(H) 98 - 107 mmol/L 11/07/2018 7:14 PM [facility] CO2 18(L) 22 - 29 mmol/L 11/07/2018 7:14 PM [facility] Glucose 100 70 - 115 mg/dL 11/07/2018 7:14 PM [facility] Calcium 8.9 8.4 - 10.2 mg/dL 11/07/2018 7:14 PM [facility] Anion Gap 17 8 - 18 11/07/2018 7:14 PM [facility] BUN/Creatinine Ratio 18 7 - 23 11/07/2018 7:14 PM [facility] Osmolality Calculated 295 270 - 300 mOsm/kg 11/07/2018 7:14 PM [facility] eGFR >60 >60 mL/min/1.7 3 m2 11/07/2018 7:14 PM [facility] Blood BLOOD SPECIMEN / Unknown Venipuncture / Unknown 11/07/2018 6:55 PM CDT 11/07/2018 6:58 PM T us Vatche Uche DO LAB - CHEMISTRY ORDERABLES F inal Result [facility] [address] [place] [address] from Last 3 Months or Most Recently Relevant to Health Maintenance Insurance MEDICAID - [place] LEVEL FUNDED: [facility] [employer] Care Teams Hot Dipper Relationship Specialty Start Date End Date Shefali Guevara MD [address] [place] [address] [place] [address] PCP - General Family Medicine 11/07/18
--- OUTSIDE RECORDS SUMMARY | 2024-08-18 11:38 | XMS_ITS | Clinical Summary ---
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
--- OUTSIDE RECORDS SUMMARY | 2024-08-18 11:38 | XMS_ITS | Encounter Summary ---
Author Organization [facility] Address [address] [place] [address] Care Team Providers Care Psychotherapist Counselor Name Role Phone Shefali Guevara MD Primary Care Provider [phone] Reason for Referral * (Routine) - Open Specialty Diagnoses / Procedures Referred By Contac t Referred To Contact Diagnoses Encounter for ultrasound to assess growth (HCC) Advanced maternal age in multigravida, second trimester (HCC) History of pulmonary embolism Obesity affecting in second trimester, unspecified obesity type (HCC) 32 weeks gestation of (HCC) Anticoagulated Procedures BIOPHYSICAL PROFILE W JUST Jesús Shepard MD [address] [facility] [address] [place] [address] Phone: tel: fax: Referral ID Status Reason Start Date Expiration Date Visits Re quested Visits Authorized [id number] Open 08/10/2024 08/10/2025 4 4 * (Routine) - Open Specialty Diagnoses / Procedures Referred By Contac t Referred To Contact Diagnoses Encounter for ultrasound to assess growth (HCC) Advanced maternal age in multigravida, second trimester (HCC) History of pulmonary embolism Obesity affecting in second trimester, unspecified obesity type (HCC) 32 weeks gestation of (HCC) Anticoagulated Procedures BIOPHYSICAL PROFILE W JUST Jesús Shepard MD [address] [facility] [address] [place] [address] Phone: tel: fax: Referral ID Status Reason Start Date Expiration Date Visits Re quested Visits Authorized [id number] Open 08/10/2024 08/10/2025 4 4 Reason for Visit * Reason Comments Ultrasound Non-stress Test Follow-up Maternal Medicine Biophysical Profile * (Routine) - Open Specialty Diagnoses / Procedures Referred By Contac t Referred To Contact Diagnoses Encounter for ultrasound to assess growth (HCC) Advanced maternal age in multigravida, second trimester (HCC) History of pulmonary embolism Obesity affecting in second trimester, unspecified obesity type (HCC) 32 weeks gestation of (HCC) Anticoagulated Procedures BIOPHYSICAL PROFILE W NST Jesús Shepard MD [address] [address] [address] [place] [address] Phone: tel: fax: Referral ID Status Reason Start Date Expiration Date Visits Re quested Visits Authorized [id number] Open 08/10/2024 08/10/2025 4 4 Encounter Details Date Type Department Care Team (Late st Contact Info) Description 08/18/2024 7:27 AM CDT Hospital Encounter [facility] [address] [place] [address] Fe Maravilla MD [address] [facility] 4[place] [address] Social History Tobacco Use Types Packs/Day [...] Pulse 93 08/18/2024 7:59 AM CDT Temperature - - Respiratory Rate - - Oxygen Saturation - - Inhaled Oxygen Concentration - - Weight 120.4 kg (265 lb 6.4 oz) 08/18/2024 7:59 AM CDT Height - - Body Mass Index 47.01 04/28/2024 10: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 follow up visit Johanny BLANKENSHIP is a 39 year old 32w2d. We are following her for: - Prior pulmonary embolism (PE) - At 16 weeks heart rate (FHR) was sustained at 60 bpm and ? VSD suspected - Obesity She has no complaints today. Reports compliance with Lovenox 60mg BID. States she did not schedule an appt with Hematology yet. Denies contractions, reports baby moving. She reports good FM, no bleeding, no LOF, no DC, no contractions, no SONG's, vision changes, RUQ pain, or swelling. Genetic screening/testing: Low Risk NIPT Her is complicated by: Patient Active Problem List Diagnosis Date Noted Encounter for follow-up ultrasound of anatomy ([facility]) 06/23/2024 Priority: Not Prioritized Advanced maternal age in multigravida, second trimester ([facility]) 06/23/2024 Priority: Not Prioritized History of pulmonary embolism 06/23/2024 Priority: Not Prioritized Obesity affecting in second trimester ([facility]) 06/23/2024 Priority: Not Prioritized Anticoagulated 06/23/2024 Priority: Not Prioritized Exam: BP 104/70 Pulse 93 Wt 120.4 kg (265 lb 6.4 oz) General: NAD Abdomen: soft, NT Extremities: equal in size and width bilaterally, NT, no sign of edema FHT: per US Urine dip: unable to produce sample US: Please see report for details. Impressions/Recs 1. IUP (Intrauterine ) at 32w2d 2. AMA LR NIPT 3. Prior venous thromboembolism PE in August 2023 (see initial consult for more details) Lovenox 60mg BID started on 05/25/24. Laboratory evaluation on 28-Apr-2024 at 16 weeks' gestation (NOT on heparin): LA & Sherrill & [id number] (negative) Prothrombin [id number] mutation (negative) & Factor V Leiden mutation (negative) Protein S (lower-normal) & Protein C (normal) & Antithrombin III (borderline low) Anti-Ro/SSA & anti-La/SSB antibodies (negative) TSH & FT4 WNL Recommend Hematology referral, number provided to call and schedule. Encouraged to call and schedule. Recommend serial growth scans. Recommend weekly testing starting at 32 weeks until delivery. May consider switching to Heparin 10,000 Units SQ Q12 hours at approximately 36 weeks or sooner as clinically indicated (if concern of PTL). Plan to be off anticoagulation for at least 24 hours priorto labor. Recommend Anesthesiology at planned delivery facility in early 3rd-trimester. Recommend Lovenox 6 weeks PP and strongly encouraged follow up and management with Hematology. 4. Obesity - Nutrition counseling is appropriate if she has difficulty in keeping her weight down. - Activity/exercise in addition to dietary management is encouraged. - Recommend serial growth US - Total weight gain of </= 15 lbs. Active weight loss is not encouraged. - Would benefit from and PP weight loss 5. Anxiety & depression currently on no meds, declined Rx 6. Obstructive sleep apnea (RONDA), using CPAP at night 7. 16 weeks heart rate (FHR) was sustained at 60 bpm and ? VSD suspected echocardiogram with Pediatric Cardiology WNL on 07/19/24 8. We reviewed kick counts (BID), as well as PTL and preeclampsia signs and symptoms. Patient sent to [facility] for tPTL. 9. RTC: 4 weeks HYDROLOGIC ENGINEER/US/NST 10. Keep all appointments with primary OB I spent 35 minutes with the patient, greater than 50% of the time was spent face to face in discussion with the patient the remainder of the time was spent in chart prep and data review. The patient is to follow up with her primary obstetrical care provider for her routine care and acute OB care including delivery as clinically indicated. Once again, we appreciate the opportunity to assist you in the care of your patient. If issues arise for which I can be of help before her next visit here, please contact me directly, or contact one of the [facility] physicians. LASHON Palmer 08/18/2024 9:01 AM * Marisol Coe RN - 08/18/2024 8:00 AM CDT Patient here for testing and provider visit. Denies contractions, denies vaginal bleeding, leakage of fluid, and reports good movement. RN reviewed kick counts. Denies headache, blurred vision, RUQ pain. Patient reports having heartburn at night. She is trying to sleep with head elevated. Medication list with OTC options provided to patient. NST minimal varibility noted in beginning, pt did not eat this am, granola bar and water given. Pt.Denies feeling contractions on NST. Denies low back pain. Patient reports contractions as movement per HYDROLOGIC ENGINEER. NST reviewed with HYDROLOGIC ENGINEER. Patient will proceed to [facility] for PTL evaluation as directed by Marce Jo NP. Renata at OB office notified. Alanna at [facility] notified. MFM reviewed remotely and agrees with plan. Patient Vitals for the past 6 hrs: Pulse BP 08/18/24 0759 93 104/70 Marisol Coe RN 08/18/2024 8:01 AM documented in this encounter Plan of Treatment Upcoming Encounters Date Type Department Care Team (Late st Contact Info) Description 08/24/2024 10:30 AM CDT Hospital Encounter [facility] [address] [place] [id number] 08/30/2024 8:15 AM CDT Appointment [facility] [address] [place] [id number] 09/06/2024 8:15 AM CDT Appointment [facility] [address] [place] [id number] 09/15/2024 7:30 AM CDT Appointment [facility] [address] [place] [phone] 09/20/2024 8:15 AM CDT Appointment [facility] [address] [place] [phone] 09/27/2024 8:15 AM CDT Appointment [facility] [address] [place] [address] 10/04/2024 7:30 AM CDT Appointment [facility] [address] [place] [phone] Scheduled Orders Name Type Priority Associated Diagnoses Orde r Schedule BIOPHYSICAL PROFILE W NST MATR MED Routine Encounter for ultrasound to assess growth (HCC) Advanced maternal age in multigravida, second trimester (HCC) History of pulmonary embolism Obesity affecting in second trimester, unspecified obesity type (HCC) 32 weeks gestation of (HCC) Anticoagulated 4 Occurrences starting 08/10/2024 until 08/10/2025, 1 completed documented as of this encounter Procedures Procedure Name Priority Date/Time Associated Diagnosis Comments BIOPHYSICAL PROFILE W NST Routine 08/18/2024 7:21 AM CDT Encounter for ultrasound to assess growth (HCC) Advanced maternal age in multigravida, second trimester (HCC) History of pulmonary embolism Obesity affecting in second trimester, unspecified obesity type (HCC) 32 weeks gestation of (HCC) Anticoagulated documented in this encounter Results * BIOPHYSICAL PROFILE W NST (08/18/2024 7:21 AM CDT) Linked Results Indication ======== AMA 39 years with low-risk cf-DNA Obesity class III, Pulmonary embolism in August 2023 heart rate was sustained 61 bpm at 16 week U/S, echocardiogram WNL History ====== OB History 4. Para 2 [id number] 1. live 2006. Gest. age 40 w [...] 5 lb 2 oz EFW by Hadlock ([id number]) overall normal range, but the AC is [...] US in 4 weeks. Coding ====== Procedures 87127: [place] [address]: Biophysical Profile W NST Transparency Software PACS Anatomical Region Laterality Modality Other 08/18/2024 7:21 AM CDT us Jesús Shepard MD [facility] ORDERABLES Edited Result - Final documented in this encounter Visit Diagnoses Diagnosis Encounter for ultrasound to assess growth (HCC)- Primary Advanced maternal age in multigravida, second trimester (HCC) History of pulmonary embolism Personal history of pulmonary embolism Obesity affecting in second trimester, unspecified obesity type (HCC) 32 weeks gestation of (HCC) state, incidental Anticoagulated Encounter for long-term (current) use of anticoagulants Encounter for ultrasound to assess growth (HCC)- Primary Advanced maternal age in multigravida, second trimester (HCC) Obesity affecting in second trimester, unspecified obesity type (HCC) History of pulmonary embolism Personal history of pulmonary embolism Anticoagulated Encounter for long-term (current) use of anticoagulants 33 weeks gestation of (HCC) state, incidental Encounter for screening (HCC) documented in this encounter Care Teams Psychotherapist Counselor Relationship Specialty Start Date End Date Shefali Guevara MD [address] [place] [address] [place] [address] PCP - General Family Medicine 11/07/18 documented as of this encounter
[2024-08-18 12:01] LABS: Add Urine Microscopic? NO; Appearance Urine Clear (Clear); Bilirubin Urine Negative (Negative); Blood Urine Negative (Negative); Color Urine Yellow (Yellow); Glucose Urine UA Negative (Negative); Ketones Urine Trace mg/dL (Negative); Leukocyte Esterase Ur Negative LEU/UL (Negative); Nitrate Urine Negative (Negative); Protein Urine Negative (Negative); Specific Grav Ur 1.008 (1.001-1.035); Urobilinogen Urine 0.2 mg/dL (<2.0)
--- NOTE | 2024-08-18 12:01 | OBADM ---
This patient, Jhoanny Cesar, admitted to the OB room 116 for observation. Patient/family oriented to hospital policies and general routines including ID bracelet, bed and alarms, visiting hours, pain management, procedures, bathroom and other care routines, personal items, smoking policy, room service/diet, and visiting hours. Patient/Family are encouraged to report perceived risks to care and to ask questions if they do not understand what they are told or what they should do.
[2024-08-18] MEDS: TERBUTALINE SULFATE 1 MG/ML VIAL 0.25 MG SUB-Q (12:39)
[2024-08-18] MEDS: ENOXAPARIN 60 MG/0.6 ML SYRINGE SUB-Q (12:57)
--- NOTE | 2024-08-19 07:46 | PM.OBTRLD ---
OB - Triage/Final Diagnosis Visit Information Date of evaluation: 08/18/24 Reason for evaluation: threatened labor Comments/Additional reasons for admission: I have assessed the risk for this patient, Johanny Cesar, and determined that she would benefit from observation care. Evaluation Laboratory results: Laboratory Tests 08/18/24 11:52 Urine Color Yellow Urine Appearance Clear Urine pH 7.0 Ur Specific [place] 1.008 Urine Protein Negative Urine Glucose (UA) Negative Urine Ketones Trace H Ur Blood (Man) Negative Urine Nitrate Negative Urine Bilirubin Negative Urine Urobilinogen 0.2 Leukocyte Esterase Rfl Negative Vital signs: Vital Signs - 24 hr 08/18/24 11:10 08/18/24 11:14 08/18/24 11:15 Temperature Pulse Rate 88 Respiratory Rate Blood Pressure 119/65 Pulse Oximetry 98 98 Oxygen Delivery 08/18/24 11:16 08/18/24 11:20 08/18/24 11:25 Temperature 98.3 F Pulse Rate 87 Respiratory Rate 20 Blood Pressure 121/61 Pulse Oximetry 98 98 Oxygen Delivery 08/18/24 11:30 08/18/24 11:31 08/18/24 11:35 Temperature Pulse Rate 97 Respiratory Rate Blood Pressure 79/41 L Pulse Oximetry 99 99 Oxygen Delivery 08/18/24 11:45 08/18/24 11:50 08/18/24 11:55 Temperature Pulse Rate Respiratory Rate Blood Pressure Pulse Oximetry 94 97 97 Oxygen Delivery 08/18/24 11:57 08/18/24 12:00 08/18/24 12:05 Temperature Pulse Rate 86 Respiratory Rate Blood Pressure 110/59 L Pulse Oximetry 96 97 Oxygen Delivery Room Air 08/18/24 12:10 08/18/24 12:15 08/18/24 12:20 Temperature Pulse Rate 82 Respiratory Rate Blood Pressure 115/57 L Pulse Oximetry 97 97 96 Oxygen Delivery 08/18/24 12:25 08/18/24 12:30 08/18/24 12:31 Temperature Pulse Rate 132 H Respiratory Rate Blood Pressure 105/56 L Pulse Oximetry 97 96 Oxygen Delivery 08/18/24 12:35 08/18/24 12:40 08/18/24 12:45 Temperature Pulse Rate Respiratory Rate Blood Pressure Pulse Oximetry 98 96 96 Oxygen Delivery 08/18/24 12:50 08/18/24 12:55 08/18/24 13:00 Temperature Pulse Rate Respiratory Rate Blood Pressure Pulse Oximetry 96 96 96 Oxygen Delivery 08/18/24 13:01 08/18/24 13:05 08/18/24 13:10 Temperature Pulse Rate 106 H Respiratory Rate Blood Pressure 112/64 Pulse Oximetry 96 95 Oxygen Delivery 08/18/24 13:15 08/18/24 13:20 08/18/24 13:45 Temperature Pulse Rate Respiratory Rate Blood Pressure Pulse Oximetry 96 95 98 Oxygen Delivery 08/18/24 13:50 08/18/24 13:55 08/18/24 14:00 Temperature Pulse Rate 99 Respiratory Rate Blood Pressure 112/57 L Pulse Oximetry 98 96 96 Oxygen Delivery 08/18/24 14:05 Temperature Pulse Rate Respiratory Rate Blood Pressure Pulse Oximetry 98 Oxygen Delivery
== END 2024-08-18 14:25 | disposition home or self-care (01) ==
PROVIDERS: Admitting Provider Student in an Organized Health Care Education/Training Program; Visit Provider Student in an Organized Health Care Education/Training Program
DX: O47.03 False labor before 37 completed weeks of gestation, third trimester (principal); Z3A.32 32 weeks gestation of pregnancy
CPT/HCPCS: 76819; 81003; 96372; G0378; G0379; J1650; J3105

== ENCOUNTER 2024-09-27 10:35 | Inpatient (IN) | payer OTHER, MEDICAID, SELFPAY ==
[2024-09-27] VITALS (14 sets, daily range): BP systolic 83–143; BP diastolic 54–92; PULSE 86–105; TEMP 36.6–36.7
--- NOTE | ~2024-09-27 | CT_ITS ---
CTA chest PE protocol Ordering provider: Meghan Davis MD History: 39 years Female with . chest pain . Comparison: None. Technique: CT angiogram chest was performed following timed intravenous injection of contrast. Thin s lice axial images and reformatted coronal images were obtained. Three dimensional reformatted images of the chest were also obtained using a [employer] workstation. . Automated exposure control and iterati ve reconstruction technique were employed. The dose-length product was 670.71 mGy-cm. 100 mL Omnipaqu e 350 was given IV. Findings: PULMONARY ARTERIES: No pulmonary embolus. VISUALIZED THORACIC INLET: Normal. MEDIASTINUM: Aorta/coronary arteries: The thoracic aorta is normal. Heart/other: The heart is not enlarged. Lymph nodes: No mediastinal or hilar adenopathy. LUNGS: Trace of left pleural effusion with adjacent atelectasis. No pulmonary nodules or masses. No infiltra ramon. No pneumothorax. VISUALIZED UPPER ABDOMEN: Minimal fluid around the liver and spleen. Slightly increased density in th e area of the gallbladder which may be artifactual. Otherwise, the visualized upper abdomen is normal . MUSCULOSKELETAL: Soft tissues: The superficial soft tissues are normal. Bones: Age appropriate degenerative changes of the spine. IMPRESSION: 1. No pulmonary embolism. 2. Minimal ascites around the liver and spleen. Clinical correlation advised. 3. Trace of left pleural effusion with adjacent atelectasis. No acute lung lesion seen. Reviewed, dictated and finalized at location A. IMPRESSION: 1. No pulmonary embolism. 2. Minimal ascites around the liver and spleen. Clinical correlation advised. 3. Trace of left pleural effusion with adjacent atelectasis. No acute lung les ion seen.
--- OUTSIDE RECORDS SUMMARY | 2024-09-27 11:38 | XMS_ITS | Referral Summary ---
Author Organization [facility] Address [address] [place] [address] Care Team Providers Care Aircraft Maintenance Instructor Name Role Phone Shefali Guevara MD Primary [...] 19. Hep B core IgM Nonreactive Nonreactive [facility] Comment: Interpretive Data If HepB Core IgM Ab is reported as Equivocal, a new sample should be drawn in two weeks for testing. Current interpretive data was last revised on 19. Hep C Ab Nonreactive Nonreactive [facility] Comment: Interpretive Data Nonreactive: Antibodies to [...] last revised on 2019. HepBsAg Nonreactive Nonreactive [facility] Blood 11/29/2021 5:14 PM CDT 11/29/2021 5:16 PM CDT [facility] MICROBIOLOGY - GENERAL ORDER MARTÍN Final Result [facility] [address] [facility] Department of Laboratories [place], [place] [id number] from Last 3 Months or Most Recently Relevant to Health Maintenance Insurance IDPA [facility] CHOICE PLUS IDPA [facility] CHOICE PLUS Member Subscriber Plan / Payer (Ef fective 2022-Present) Name:Johanny Cesar Relation to Subscriber:Self Name:Jermaine Cesaroren Payer ID:[id number] (NAIC) Type:[facility] HMO/PPO Address: [place] [phone] Care Teams Aircraft Maintenance Instructor Relationship Specialty Start Date End Date Shefali Guevara MD [address] [place] [address] [facility] [place] [address] PCP - General Family Medicine 11/29/21
--- OUTSIDE RECORDS SUMMARY | 2024-09-27 11:38 | XMS_ITS | Clinical Summary ---
Author Organization [facility] Address [address] [place] [address] Care Team Providers Care Parachute Supervisor Name Role Phone Shefali Guevara MD Primary [...] ORDER MARTÍN Final Result [facility] [address] [facility] Department [place] [address] from Last 3 Months or Most Recently Relevant to Health Maintenance Insurance IDPA [facility] CHOICE PLUS IDPA [facility] CHOICE PLUS Care Teams Parachute Supervisor Relationship Specialty Start Date End Date Shefali Guevara MD [address] [place] [address] [address] PCP - General Family Medicine 11/29/21
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
--- OUTSIDE RECORDS SUMMARY | 2024-09-27 11:38 | XMS_ITS | Encounter Summary ---
Author Organization [facility] Address [address] [place] [address] Care Team Providers Care Photo Cartographer Name Role Phone Shefali Guevara MD Primary Care Provider [phone] Reason for Referral * (Routine) - Open Specialty Diagnoses / Procedures Referred By Contac t Referred To Contact Diagnoses Obesity affecting in second trimester, unspecified obesity type (HCC) Advanced maternal age in multigravida, second trimester (HCC) History of pulmonary embolism Anticoagulated 36 weeks gestation of (HCC) Encounter for ultrasound (HCC) Encounter for screening (HCC) Non-reactive NST (non-stress test) Procedures BIOPHYSICAL PROFILE W NST Ciera Villalpando MD [address] [place] [address] Phone: tel: fax: Referral ID Status Reason Start Date Expiration Date Visits Re quested Visits Authorized [id number] Open 09/06/2024 09/06/2025 8 8 Reason for Visit * Reason Comments Ultrasound Biophysical Profile Non-stress Test * (Routine) - Open Specialty Diagnoses / Procedures Referred By Contac t Referred To Contact Diagnoses Obesity affecting in second trimester, unspecified obesity type (HCC) Advanced maternal age in multigravida, second trimester (HCC) History of pulmonary embolism Anticoagulated 36 weeks gestation of (HCC) Encounter for ultrasound (HCC) Encounter for screening (HCC) Non-reactive NST (non-stress test) Procedures BIOPHYSICAL PROFILE W NST Ciera Villalpando MD [address] [place] [address] Phone: tel: fax: Referral ID Status Reason Start Date Expiration Date Visits Re quested Visits Authorized [id number] Open 09/06/2024 09/06/2025 8 8 Encounter Details Date Type Department Care Team (Late st Contact Info) Description 09/27/2024 8:10 AM CDT Hospital Encounter [facility] [address] [place] [address] Marylou Huang MD [address] [place] [address] Social History Tobacco Use Types Packs/Day Years [...] Sign Reading Time Taken Comments Blood Pressure 107/57 09/27/2024 9:24 AM CDT Pulse 93 09/27/2024 9:24 AM CDT Temperature - - Respiratory Rate - - Oxygen Saturation - - Inhaled Oxygen Concentration - - Weight - - Height - - Body Mass Index - - documented in this encounter Progress Notes * Marisol Coe RN - 09/27/2024 9:29 AM CDT Name: Johanny BLANKENSHIP Date of : 1985 Today's Date: 09/27/2024 38w0d NST RESULTS (VASQUEZ) OBJECTIVE FINDINGS , Pulse: 93, , BP: 107/57 NST Indication(s): Other (Comment) (AMA, Obesity, Hx of DVT) Uterine Irritability: No Contractions: Irregular Frequency: x2 Duration (sec) Range: 150-160 Perceived Intensity: Mild OBJECTIVE FINDINGS Movement: Present Monitoring Mode: External Baseline: 120 BPM Variability: Moderate (Minimal variability also noted off and on throughout NST today.) Decelerations: None Accelerations: Yes (10x10 accels noted.) OTHER INFORMATION Patient reports positive movement. Denies cramping, vaginal bleeding, and leakage of fluid. Patient reports irregular contractions at times. Patient denies headache, epigastric pain and visual changes. NST reviewed with Dr. Huang today as non reactive. BPP 11/07. Orders received for patient to be sent directly to local [facility] for continuous monitoring. [facility] given Dr. Barahona's office number so she can reach out and speak with OB. See ultrasound report for details. Notified patient of plan and she verbalized understanding and will proceed to [place] [facility]. HALIE Landa at [facility] called and update given. Marisol Coe RN documented in this encounter Plan of Treatment Upcoming Encounters Date Type Department Care Team (Late st Contact Info) Description 09/29/2024 8:15 AM CDT Hospital Encounter [facility] [address] [place] [phone] 10/04/2024 7:30 AM CDT Hospital Encounter [facility] [address] [place] [address] 10/06/2024 8:15 AM CDT Appointment [facility] [address] [place] [phone] documented as of this encounter Procedures Procedure Name Priority Date/Time Associated Diagnosis Comments BIOPHYSICAL PROFILE W NST Routine 09/27/2024 8:06 AM CDT Obesity affecting in second trimester, unspecified obesity type (HCC) Advanced maternal age in multigravida, second trimester (HCC) 36 weeks gestation of (HCC) Encounter for ultrasound (HCC) Encounter for screening (HCC) documented in this encounter Results * BIOPHYSICAL PROFILE W NST (09/27/2024 8:06 AM CDT) Linked Results Indication ======== AMA 39 years Obesity class III, Pulmonary embolism in August 2023 heart rate was sustained 61 bpm at 16 week U/S, echocardiogram WNL-issue resolved History ====== OB History 4. Para 2 [id number] 1. live 2006. Gest. age 40 w + 0 d. Weight 2,721 g. Sex of child: female. Details: 2. live 2008. Gest. age 40 w + 0 d. Weight 2,721 g. Sex of child: female. Details: 3. elective termination Lab Tests Test Date Result NIPT Low risk Maternal Assessment Physical Exam Height 160 cm, 5 ft 3 in. Weight 120 kg, 264 lb. Initial weight 123 kg, 272 lb. BMI 46.77 kg/m . Initial BMI 48.18 kg/m . Weight gain -4 kg, -8 lb Method ====== Transabdominal ultrasound examination. View: Sufficient ========= Vasquez . Number of fetuses: 1 Dating ====== Date Details Gest. age YASIR LMP 01/05/2024 38 w + 0 d 10/11/2024 Stated YASIR 38 w + 0 d 10/11/2024 Assigned dating based on the LMP, selected on 04/06/2024 38 w + 0 d 10/11/2024 General Evaluation Cardiac activity present. FHR 121 bpm. Presentation: cephalic Placenta: Placental site: anterior Amniotic Fluid Assessment ==== Amount of AF: normal MVP 5.4 cm. SAMANTHA 14.4 cm. Q1 5.4 cm, Q2 4.1 cm, Q3 3.6 cm, Q4 1.4 cm Biophysical Profile 2: breathing movements 2: Gross body movements 2: tone 2: Amniotic fluid volume NST: non-reactive /10 Biophysical profile score Non Stress Test NST interpretation: non-reactive. Baseline FHR 120 bpm. Accelerations: absent. Decelerations: absent. Uterine activity: absent Growth Overview Exam date GA BPD (mm) [...] 90% 66.9 88% 57 76% 2332 88% 09/15/2024 36w 2d 88.4 44% 329.9 51% 340.2 94% 70.9 48% 60.6 41% 3157 77% Anatomy The following structures appear normal: Abdomen Stomach. Kidneys. Bladder. sex: female. Impression ========= Single, live, intrauterine at 38w 0d The amniotic fluid volume is normal. The biophysical profile is 8/10. Comment ======== ultrasound alone cannot detect all structural, genetic, or functional , placental, or maternal abnormalities Follow-up ======== The NST is non reactive and has low variability and no accelerations. Per the staff therapist, this is typical for her. While BPP is 8/8, the finding is concerning. Given her advanced gestational age, additional monitoring and delivery is recommended. Findings were reviewed with Dr. Chan. Patient directed to LD for evaluation and management. Coding ====== Procedures 90217: US Uterus Limited 41192: Biophysical Profile W NST [facility] Orchestrate PACS Anatomical Region Laterality Modality Other 09/27/2024 8:06 AM CDT Ciera Curiel Head MD [facility]IT[facility] ORDERABLES Edited Result - Final documented in this encounter Visit Diagnoses Diagnosis Obesity affecting in second trimester, unspecified obesity type (HCC)- Primary Advanced maternal age in multigravida, second trimester (HCC) 38 weeks gestation of (HCC) state, incidental Encounter for ultrasound (HCC) Encounter for routine screening for malformation using ultrasonics Encounter for screening (HCC) Anticoagulated Encounter for long-term (current) use of anticoagulants 36 weeks gestation of (HCC) state, incidental Obesity affecting in second trimester, unspecified obesity type (HCC)- Primary Advanced maternal age in multigravida, second trimester (HCC) 38 weeks gestation of (HCC) state, incidental Encounter for screening (HCC) Encounter for ultrasound (HCC) Encounter for routine screening for malformation using ultrasonics Anticoagulated Encounter for long-term (current) use of anticoagulants Encounter for screening (HCC)- Primary 38 weeks gestation of (HCC) state, incidental Advanced maternal age in multigravida, second trimester (HCC) Obesity affecting in second trimester, unspecified obesity type (HCC) Anticoagulated Encounter for long-term (current) use of anticoagulants Encounter for ultrasound (HCC) Encounter for routine screening for malformation using ultrasonics documented in this encounter Care Teams Photo Cartographer Relationship Specialty Start Date End Date Shefali Guevara MD [address] [place] [address] [place] [phone] PCP - General Family Medicine 11/07/18 documented as of this encounter
--- OUTSIDE RECORDS SUMMARY | 2024-09-27 11:38 | XMS_ITS | Clinical Summary ---
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 Care Building Manager Name Role Phone Unavailable Primary Care Provider Unavailabl e Social History Tobacco Use Types Packs/Day Years Used Date Smoking Tobacco: Never Assessed Comments Unknown Sex and Gender Information Value Date Recorded Sex Assigned at Not on file Legal Sex Female 1:32 PM CLINICAL PRODUCT MANAGER Gender Identity Not on file Sexual Orientation [...]
--- OUTSIDE RECORDS SUMMARY | 2024-09-27 11:38 | XMS_ITS | Clinical Summary ---
Author Organization [facility] [employer] Address [address] [place] [address] Care Team Providers Care Transfill Technician Name Role Phone Shefali Guevara MD Primary Care Provider [phone] Source Comments [facility] [employer],non-owned Affiliates and Associated Physician Practices is amultiple site organization consisting of ambulatory clinics and hospital sitesin [place], [place], [place]. This disclosure is being madepursuant to the Care Everywhere program and may not contain all information available regarding this patient. Last updated 17.[employer] Allergies No known active allergies Medications * [...] Encounters Date Type Department Care Team Description 09/27/2024 8:10 AM CDT Hospital Encounter [facility] [address] [place], [place] [phone] Marylou Huang MD 09/22/2024 7:30 AM CDT - 09/22/2024 11:59 PM CDT Hospital Encounter [facility] [address] [place], [place] [phone] Fe Maravilla MD Discharge Disposition: Home or Self Care 09/20/2024 8:05 AM CDT - 09/20/2024 11:59 PM CDT Hospital Encounter [facility] [address] [place] [address] Elaine Joe MD SOIL SPECIALIST Discharge Disposition: Home or Self Care 09/15/2024 7:24 AM CDT - 09/15/2024 11:59 PM CDT Hospital Encounter [facility] [address] [place], [place] [phone] Anshul Gates MD Discharge Disposition: Home or Self Care 09/06/2024 8:14 AM CDT - 09/06/2024 11:59 PM CDT Hospital Encounter [facility] [address] [place], [place] [phone] Elaine Joe MD SOIL SPECIALIST Discharge Disposition: Home or Self Care 09/01/2024 8:00 AM CDT - 09/01/2024 11:59 PM CDT Hospital Encounter [facility] [address] [place] [address] Chaitanya Santo DO Head, Ciera Curiel MD SOIL SPECIALIST Discharge Disposition: Home or Self Care 08/30/2024 8:15 AM CDT - 08/30/2024 11:59 PM CDT Hospital Encounter [facility] [address] [place] [address] Chaitanya Santo DO SOIL SPECIALIST Discharge Disposition: Home or Self Care 08/30/2024 Travel 08/24/2024 10:30 AM CDT - 08/24/2024 11:59 PM CDT Hospital Encounter [facility] [address] [place] [address] Cristopher Martínez MD Discharge Disposition: Home or Self Care 08/18/2024 7:27 AM CDT - 08/18/2024 11:59 PM CDT Hospital Encounter [facility] [address] [place] [address] Fe Maravilla MD Discharge Disposition: Home or Self Care 07/21/2024 1:39 PM CDT - 07/21/2024 11:59 PM CDT Hospital Encounter [facility] [address] [place] [address] Anshul Gates MD Discharge Disposition: Home or Self Care 07/19/2024 11:15 AM CDT Hospital Encounter [address] [address] Shruti Correa MD Discharge Disposition: Home or Self Care 07/19/2024 11:15 AM CDT Hospital Encounter [address] [address] Anshul Gates MD Reddy, Chetana M, MD Discharge Disposition: Home or Self Care 06/30/2024 Telephone [facility] [address] [place] [address] Marisol Coe RN Results (Thyroid lab results/) 06/29/[address] [address] Mondaine, Meche R Future Appointment from Last 3 Months Immunizations Immunization Administration [...] Pulse 93 09/27/2024 9:24 AM CDT Temperature 37.1 C (98.7 F) 11/07/2018 6:48 PM CDT Respiratory Rate 16 09/06/2024 9:46 AM CDT Oxygen Saturation 98% 09/06/2024 9:46 AM CDT Inhaled Oxygen Concentration - - Weight 120.4 kg (265 lb 6.4 oz) 08/18/2024 7:59 AM CDT Height 160 cm (5' 3) 04/28/2024 10:15 AM SLIDE DEVELOPER Body Mass Index 47.01 04/28/2024 10:15 AM SLIDE DEVELOPER Plan of Treatment Upcoming Encounters Date Type Department Care Team (Late st Contact Info) Description 09/29/2024 8:15 AM CDT Hospital Encounter [facility] [address] [place] [phone] 10/04/2024 7:30 AM CDT Hospital Encounter [facility] [address] [place] [phone] 10/06/2024 8:15 AM CDT Appointment [facility] [address] [place] [phone] Health Maintenance Due Date Last Done Comments LIPID TESTING 1985 MAMMOGRAM 1985 HIV SCREENING 1999 HEPATITIS B VACCINE (1 of 3 - 19+ 3-dose series) 2003 PAP SMEAR 2005 COVID-19 VACCINE (2023-2 5 season) 2023 DEPRESSION SCREENING 03/31/2024 SCREENING FOR DIABETES 04/28/2024 11/07/2018 OB-ONE HOUR GLUCOSE 07/05/2024 OB-TDAP CURRENT 07/12/20242021, 11/07/2018 OB-RHOGAM INJECTION 07/19/2024 OB-GROUP B STREP SCREEN 09/06/2024 INFLUENZA VACCINE (Season Ended) 2024 01/19/2020, 01/19/2019 [...] for ultrasound (HCC) Encounter for screening (HCC) BIOPHYSICAL PROFILE W NST Routine 09/22/2024 7:25 AM CDT Obesity affecting in second trimester, unspecified obesity type (HCC) Advanced maternal age in multigravida, second trimester (HCC) 36 weeks gestation of (HCC) Encounter for ultrasound (HCC) Encounter for screening (HCC) BIOPHYSICAL PROFILE W NST Routine 09/20/2024 7:59 AM CDT Obesity affecting in second trimester, unspecified obesity type (HCC) Advanced maternal age in multigravida, second trimester (HCC) 36 weeks gestation of (HCC) Encounter for ultrasound (HCC) Encounter for screening (HCC) BIOPHYSICAL PROFILE W T Routine 09/15/2024 7:24 AM CDT Obesity affecting in second trimester, unspecified obesity type (HCC) Advanced maternal age in multigravida, second trimester (HCC) 36 weeks gestation of (HCC) Encounter for ultrasound (HCC) Encounter for screening (HCC) BIOPHYSICAL PROFILE W T Routine 09/06/2024 8:08 AM CDT Encounter for ultrasound to assess growth (HCC) Advanced maternal age in multigravida, second trimester (HCC) History of pulmonary embolism Obesity affecting in second trimester, unspecified obesity type (HCC) 32 weeks gestation of (HCC) Anticoagulated SONOGRAM - COMPLETE Routine 09/01/2024 8 :21 AM CDT Encounter for follow-up ultrasound of anatomy (HCC) Advanced maternal age in multigravida, second trimester (HCC) History of pulmonary embolism Obesity affecting in second trimester, unspecified obesity type (HCC) 24 weeks gestation of (HCC) Anticoagulated BIOPHYSICAL PROFILE W T Routine 08/30/2024 8:11 AM CDT Encounter for ultrasound to assess growth (HCC) Advanced maternal age in multigravida, second trimester (HCC) History of pulmonary embolism Obesity affecting in second trimester, unspecified obesity type (HCC) 32 weeks gestation of (HCC) Anticoagulated BIOPHYSICAL PROFILE W T Routine 08/24/2024 10:54 AM CDT Encounter for ultrasound to assess growth (HCC) Advanced maternal age in multigravida, second trimester (HCC) History of pulmonary embolism Obesity affecting in second trimester, unspecified obesity type (HCC) 32 weeks gestation of (HCC) Anticoagulated BIOPHYSICAL PROFILE W T Routine 08/18/2024 7:21 AM CDT Encounter for [...] in second trimester, unspecified obesity type (HCC) BASIC METABOLIC PANEL (CALCIUM TOTAL) STAT 11/07/2018 6:55 PM CDT from Last 3 Months or Most Recently Relevant to Health Maintenance Results * BIOPHYSICAL PROFILE W NST (09/27/2024 8:06 AM CDT) Only the most recent of8 resultswithin the time period is included. Linked Results Indication ======== AMA 39 years Obesity class III, Pulmonary embolism in August 2023 heart rate was sustained 61 bpm at 16 week U/S, echocardiogram WNL-issue resolved History ====== OB History 4. Para 2 [id number] 1. live 2006. Gest. age 40 w [...] low variability and no accelerations. Per the staffing coordinator, this is typical for her. While BPP is 8/8, the finding is concerning. Given her advanced gestational age, additional monitoring and delivery is recommended. Findings were reviewed with Dr. Chan. Patient directed to LD for evaluation and management. Coding ====== Procedures [id number]: US Uterus Limited 88001: Biophysical Profile W NST [employer] PACS Anatomical Region Laterality Modality Other 09/27/2024 8:06 AM CDT Ciera Curiel Head MD WHITING ORDERABLES Edited Result - Final * SONOGRAM - COMPLETE (09/01/2024 8:21 AM CDT) Only the most recent of2 resultswithin the time period is included. Linked Results Indication ======== AMA 39 years Obesity class III, Pulmonary embolism in August 2023 heart rate was sustained 61 bpm at 16 week U/S, echocardiogram WNL-issue resolved History ====== OB History 4. Para 2 [id number] 1. live 2006. Gest. age 40 w + 0 d. Weight 2,721 g. Sex of child: female. Details: 2. live 2008. Gest. age 40 w + 0 d. Weight 2,721 g. Sex of child: female. Details: 3. elective termination Lab Tests Test Date Result NIPT Low risk Maternal Assessment Physical Exam Height 160 cm, 5 ft 3 in. Weight 119 kg, 262 lb. Initial weight 123 kg, 272 lb. BMI 46.41 kg/m . Initial BMI 48.18 kg/m . Weight gain -5 kg, -10 lb Method ====== Transabdominal ultrasound. View: Good view ========= Mars . Number of fetuses: 1 Dating ====== Date Details Gest. age YASIR LMP 01/05/2024 34 w + 2 d 10/11/2024 Stated YASIR 34 w + 2 d 10/11/2024 Assigned dating based on the LMP, selected on 04/06/2024 34 w + 2 d 10/11/2024 General Evaluation Cardiac activity present. FHR 118 bpm. Presentation: cephalic Placenta: Placental site: anterior Amniotic Fluid Assessment ==== Amount of AF: mildly increased MVP 7.9 cm. SAMANTHA 28.8 cm. Q1 7.1 cm, Q2 7.9 cm, Q3 6.9 cm, Q4 6.8 cm Biophysical Profile 2: breathing movements 2: Gross body movements 2: tone 2: Amniotic fluid volume 11/05 Biophysical profile score Growth Overview Exam date GA BPD (mm) [...] female. Impression ========= Single, live, intrauterine at 34w 2d The amniotic fluid volume is mildly increased consistent with mild polyhydramnios. The 8 point Biophysical profile is 8 /8. Comment ======== The patient was scheduled for BPP only today (see note from 09/01) Follow-up ======== Continue weekly testing Coding ====== Procedures 38120: US Uterus Limited 31225: Biophysical Profile W/O NST [employer] Anatomical Region Laterality Modality Other 09/01/2024 8:21 AM CDT Jesús Shepard MD [facility] ORDERABLES Edited Result - Final * ECHO COMPLETE CG (07/19/2024 1:52 PM CDT) MV E pk mark 26.48 cm/s [facility] CV F UJI PACS MV A pk mark 41.43 cm/s [facility] CV F UJI PACS Anatomical Region Laterality Modality Ultrasound 07/19/2024 11:2 4 AM CDT Narrative 07/19/2024 3:12 PM CDT Name: Susana Blankenship Patient Exam Info Gender: Female Patient Status: O/P : 1985 Admit Date: 07/19/2024 Exam Date/Time: 07/19/2024 11:24 AM Site: [facility] Current Location: CARE EStaffOrdering Provider: Anshul Gates Interpreting Physician: Shruti Correa MD Front Desk Worker: Jose Thomas [facility] - Study Info Procedure: ECHO COMPLETE CG [...] Shruti Correa MD - 07/19/2024 Name: Susana Blankenship Patient Exam Info Gender: Female Patient Status: O/P : 1985 Admit Date: 07/19/2024 Exam Date/Time: 07/19/2024 11:24 AM Site: [facility] Current Location: CARE EStaffOrdering Provider: Anshul Gates Interpreting Physician: Shruti Correa MD Front Desk Worker: Jose Thomas [facility] - Study Info Procedure: ECHO COMPLETE CG [...] 07/19/2024 03:12 PM Anshul Gates MD ECHO [facility] Final Result * (ABNORMAL) BASIC METABOLIC PANEL (CALCIUM TOTAL) (11/07/2018 6:55 PM CDT) BUN 14 7 - 26 mg/dL 11/07/2018 7:[address] [facility] Creatinine 0.8 0.6 - 1.2 mg/dL 11/07/2018 7:[address] [facility] Sodium 142 136 - 145 mmol/L 11/07/2018 7:[address] [facility] Potassium 3.4(L) 3.5 - 4.5 mmol/L 11/07/2018 7:[address] [facility] Chloride 110(H) 98 - 107 mmol/L 11/07/2018 7:14 PM [facility] CO2 18(L) 22 - 29 mmol/L 11/07/2018 7:14 PM [facility] Glucose 100 70 - 115 mg/dL 11/07/2018 7:14 PM [facility] Calcium 8.9 8.4 - 10.2 mg/dL 11/07/2018 7:14 PM [facility] Anion Gap 17 8 - 18 11/07/2018 7:14 PM [facility] BUN/Creatinine Ratio 18 7 - 23 11/07/2018 7:14 PM [facility] Osmolality Calculated 295 270 - 300 mOsm/kg 11/07/2018 7:14 PM [facility] eGFR >60 >60 mL/min/1.7 3 m2 11/07/2018 7:14 PM [facility] Blood BLOOD SPECIMEN / Unknown Venipuncture / Unknown 11/07/2018 6:55 PM CDT 11/07/2018 6:58 PM [facility] us Vatche Uche DO LAB - CHEMISTRY ORDERABLES F inal Result [address] [phone] from Last 3 Months or Most Recently Relevant to Health Maintenance Insurance MEDICAID - [place] [facility] AETNA Care Teams Transfill Technician Relationship Specialty Start Date End Date Shefali Guevara MD [address] [place] [address] [phone] PCP - General Family Medicine 11/07/18
[2024-09-27 12:08] LABS: Hematocrit 34.5 % (37.0-47.0); Hemoglobin 11.2 g/dL (12.0-15.0); Immature Granulocyte Percent A 0.6 % (0-0.5); Lymphocytes Absolute Auto 2.13 K/mm3 (0.9-3.2); Mean Corpuscular HGB Conc 32.5 g/dl (32-36); Mean Corpuscular Hemoglobin 31.0 pg (26-34); Mean Corpuscular Volume 95.6 fl (80-100); Nucleated Red Blood Cells Absolute Auto 0.000 K/mm3 (0.0-0.012); Nucleated Red Blood Cells Perc 0.0 % (0.0-0.2); Platelet Count Result 230 k/mm3 (150-375); Red Blood Count 3.61 M/mm3 (4.2-5.4); White Blood Count 12.3 K/mm3 (4.5-10.0)
[2024-09-27 12:51] LABS: Syphilis IgG/IgM Antibody Non-Reactive (Nonreactive)
[2024-09-27] MEDS: DINOPROSTONE 10 MG VAG INSERT VAGINAL (13:45)
[2024-09-27] MEDS: AMPICILLIN 2 GM/NS 100 ML 2 GM/100 ML BAG IVPB (13:45)
[2024-09-27] MEDS: LACTATED RINGERS 1,000 ML 125 ML IV CONT (13:45)
--- NOTE | 2024-09-27 14:05 | LDADM ---
This patient, Johanny Cesar, was admitted to Labor/Delivery/Recovery 103 on 09/27/24 at 10:35. Plans for labor, pain management and were discussed with patient. Patient/family oriented to hospital policies and general routines including ID bracelet, bed and alarms, visiting hours, pain management, procedures, bathroom and other care routines, personal items, smoking policy, room service/diet and guest tray routines, security routines, and visiting hours. Patient/Family are encouraged to report perceived risks to care and to ask questions if they do not understand what they are told or what they should do. See [facility] for further documentation.
[2024-09-27] MEDS: AMPICILLIN 1 GM/NS 50 ML 1 GM/50 ML BAG IVPB ×2 (17:34→22:02)
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
[2024-09-28] VITALS (71 sets, daily range): BP systolic 79–136; BP diastolic 36–97; PULSE 64–114; RESP 12–26; TEMP 36.3–36.9; O2SAT 93–100; BMI 46.8
[2024-09-28] MEDS: AMPICILLIN 1 GM/NS 50 ML 1 GM/50 ML BAG IVPB ×2 (01:54→06:00)
[2024-09-28] MEDS: OXYTOCIN 30 UNITS/NS 500 ML 30 UNITS/500 ML BAG IV CONT (02:57)
[2024-09-28] MEDS: FAMOTIDINE 20 MG/2 ML VIAL IV PUSH (09:44)
[2024-09-28] MEDS: ONDANSETRON INJ 4 MG/2 ML VIAL IV PUSH ×2 (09:44→16:53)
[2024-09-28] MEDS: ACETAMINOPHEN 500 MG TABLET 1000 MG PO ×3 (09:44→22:35)
[2024-09-28] MEDS: AZITHROMYCIN 500 MG/NS 250 ML 500 MG/250 ML BAG 250 MG IVPB (09:45)
--- NOTE | 2024-09-28 09:53 | P.PNAN_ITS ---
Anes - Eval Final PreProcedure Day of Procedure 09/28/24 09:53 Patient weight: morbidly obese Heart: regular rate and rhythm Lungs: clear to auscultation Airway: Mallampati scale class II Neurological: alert and oriented ASA classification: III Emergent: no Anesthetic plan: proceed Anesthesia type and monitoring: regional spinal and standard monitoring Results Review: All pre-operative results and documents have been reviewed as part of the pre- operative evaluation. Informed Consent: The patient's anesthetic plan and its attendant risks and benefits were discussed with the patient/family/POA. Questions were solicited and answers provided to the satisfaction of the patient/family/POA.
[2024-09-28] MEDS: ceFAZolin 3 GM/D5W 100 ML 100 ML IVPB (09:55)
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
--- NOTE | 2024-09-28 10:05 | WPDHPUPDATE1 ---
History and Physical Update Update Date/Time: 09/28/24 10:05 Cervidil placed yesterday and Pitocin started last p.m.. No significant cervical change, patient offered continued labor versus proceeding with primary delivery. Patient does desire to proceed with delivery. Will proceed. History and Physical has been reviewed, including an updated exam of the patient. There are NO changes in the patient's condition. Risks, benefits, and alternatives have been discussed and questions answered. Patient agrees to proceed with procedure.
--- NOTE | 2024-09-28 10:38 | S_PTH ---
PATIENT: Johanny Cesar LOC: ANHOB2 U#:[id number] AGE/SX: 39/F ROOM: 287 RE09/27/[address]: Jesús Shepard MD : 1985 BED: 00 DIS: 10/02/2024 SPEC #: [id number] RECD: 09/29/24 07:28 STATUS: JENNIFER REQ #: [id number] AYSUH: 09/28/24 10:[address]: Tam Barahona DEPT: [facility] Surgical RECD BY: Heena Wooten ENTERED: 09/29/24 07:28 SP TYPE: Surgical OTHR DR: Kyle Garcia, INSEMINATOR Tissues: A - Placenta Procedures: Hematoxylin and Eosin Stain Gross and Microscopic Level 5
--- NOTE | 2024-09-28 11:20 | W.PM.OBCSD ---
OB - Delivery Note Procedure Delivery date: 09/28/24 Pre-op diagnosis: Arrest of Dilation and Other (history PE) Post-op Diagnosis: Same Induction method: Per Cervidil Protocol Delivery augmentation: Pitocin Delivery monitor: External FHT and External Uterine Prior to decision for section, ACOG/SM labor guidelines were considered and discussed with the patient and staff. Decision made to proceed with the section.: Yes Procedure Performed: Primary Primary branch: low cervical, transverse Surgeon: Tam Barahona MD Anesthesia type: Spinal Description of Procedure/Findings: Patient prepped in usual manner for this procedure. Pfannenstiel incision was made which was then carried down to the fascia and extended bilaterally the length of the skin incision. Superiorly and inferiorly the fascia was then dissected away from the rectus muscles. Peritoneum was entered without difficulty and the bladder flap was developed. Lower segment was then incised and extended in a Pfannenstiel manner. Fair amount of bleeding was encountered on both edges. A small amount of teeing of the uterus was necessary to deliver the vertex which was delivered and after the cord clamped cut was passed off to the store manager in attendance. Manual removal the placenta was undertaken. Uterus was then exteriorized and closed using 0 Monocryl running interlocking manner from the right angle to the left angle and then a 2nd layer imbricating suture. Prior to this the 2-3 cm teeing of the incision was closed and rendered hemostatic using 0 Monocryl in a running interlocking manner. Uterus was returned to the abdomen and gutters cleared with serosanguineous fluid and clots. The revaluation of all surgical incision sites with no bleeding noted. Christiano was placed empirically over the uterus and the uterine incision. All subfascial was noted to be hemostatic and the fascia was approximated using 0 Vicryl from the left angle midline and from the right angle to the midline with good approximation noted. Subcutaneous tissue was also evaluated and found be hemostatic. 0 plain suture was used to approximate this and skin was then approximated using wide ivy. Patient was then sent to recovery room after all the bandages and dressings were placed. Specimen: Yes Estimated Blood Loss: 1,450 Drains: No Packing: No Pathology: Yes Complications: Other complications ( QBL > 1000cc) Condition: Stable Disposition: PACU Baby Gestational Age by Date: 38 Infant gender: Female presentation: vertex Placenta delivery description: Manual Removal Cord Vessel Description: 3 Vessels
[2024-09-28] MEDS: OXYTOCIN 30 UNITS/NS 500 ML 30 UNITS/500 ML BAG 125 UNITS IV CONT (12:16)
--- NOTE | 2024-09-28 13:47 | OBPPTRN ---
Patient transferred to post room #287 via stretcher. Support person present. Oriented to unit, room, information board, rooming in, admission packet and security measures. Patient verbalizes understanding.
[2024-09-28] MEDS: LIDOCAINE 5% PATCH 1 PATCH TRANSDERM (14:30)
--- NOTE | 2024-09-28 15:36 | NBADM ---
1510. Introductions were made, then consulted with patient to assess needs related to . Discussed with mother her plans to feed her and the experience so far. Mom states she plans to breastfeed and bottle feed. She currently does not want to breastfeed due to pain from her c/s, she is having her daughter feed infant bottle at this time. Encouraged mother to express any questions or concerns she has regarding feedings. Advised her to call out for a latch check or if she needs assistance waking or positioning baby. Reviewed the blue feeding worksheet for required output and feeding at least 8-12 times every 24 hours. Breast pump provided due to moms preference in bottle feeding at this time due to pain from c/s. Mom states she does not want to take any narcotics for pain relief at this time. Mom declines the use of a heat pad at this time. Instructions given on cleaning, care, usage, that there should be no pain, pumping schedule for milk production, collection, and storage of human milk. Patient was assessed for correct placement, flange size, to pump for comfort and nipple stretching/stimulation for adequate milk production every 3 hours (8 times in 24 hours) 1-2 times at night. Parents are encouraged to record the pumping schedule on the feeding sheet.?Mother voiced understanding of the education shared along with mom/baby guide and the pump measurement, flange fit handout for additional resource information. Resources provided for inpatient and outpatient services with the feeding sheet, mom/baby guide, and name/number written on the communication board. Mother voiced understanding of information and will call if there is a request for assistance. Reported to the Primary RN?
[2024-09-28] MEDS: DEXTROSE 5%/0.45% SOD CHL 1,000 ML 125 ML IV CONT (16:32)
[2024-09-28] MEDS: KETOROLAC 15 MG/ML VIAL (*BKC) IV PUSH ×2 (16:33→22:35)
[2024-09-28] MEDS: DOCUSATE SODIUM 100 MG CAPSULE PO (16:33)
[2024-09-28] MEDS: SIMETHICONE 80 MG TAB.CHEW PO ×2 (16:33→23:30)
[2024-09-28] MEDS: LACTATED RINGERS 1,000 ML 999 ML IV CONT (18:43)
[2024-09-28 18:46] LABS: Hematocrit 27.2 % (37.0-47.0); Hemoglobin 8.7 g/dL (12.0-15.0)
[2024-09-28] MEDS: ENOXAPARIN 60 MG/0.6 ML SYRINGE SUB-Q (23:30)
[2024-09-29] VITALS (15 sets, daily range): BP systolic 101–135; BP diastolic 54–80; PULSE 92–108; RESP 15–18; TEMP 36.3–37.6; O2SAT 95–100
--- NOTE | 2024-09-29 | ECHO_ITS ---
Patient Info Name: Johanny Cesar Age: 39 years : 1985 Gender: Female Ht: 63 in Wt: 264 lbs BSA: 2.38 m2 HR: 92 bpm BP: 122 / 71 mmHg Technical Quality: Good Exam Date: 09/29/2024 2:47 PM Patient Status: I Admit Date: 09/27/2024 Exam Type: CA echo doppler color flow Complete two-dimensional, color flow and Doppler transthoracic echocardiogram is performed. Staff Referring Physician: Meghan Davis MD Blender Machine Operator: Sabrina Reyes Attending Provider: Tam Barahona Summary 1. Complete two-dimensional, color flow and Doppler transthoracic echocardiogram is performed. 2. Left ventricular systolic function is hyperdynamic, estimated at 65-70. 3. There is no increased left ventricular wall thickness. 4. Right ventricular chamber dimension is normal. 5. Right ventricular systolic function is normal. 6. Left atrial chamber dimension is normal. 7. Right atrial chamber dimension is normal. 8. There is no mitral valve regurgitation. 9. PASP cannot be calculated because of insufficient TR jet. Left Ventricle Left ventricular chamber dimension is normal. Left ventricular systolic function is hyperdynamic, estimated at 65-70. There is no increased left ventricular wall thickness. Left ventricular septal wall motion is normal. The left ventricular diastolic function is normal. Right Ventricle Right ventricular chamber dimension is normal. Right ventricular systolic function is normal. Left Atria Left atrial chamber dimension is normal. Right Atria Right atrial chamber dimension is normal. Aortic Valve The aortic valve is trileaflet. There is no aortic valve sclerosis. There is no aortic valve stenosis. There is no aortic valve regurgitation. Pulmonic Valve The pulmonic valve is normal. There is no pulmonic valve stenosis. There is no pulmonic regurgitation. Mitral Valve The mitral valve has normal leaflets. There is no mitral valve stenosis. There is no mitral valve regurgitation. Tricuspid Valve The tricuspid valve leaflets are normal. There is no significant tricuspid valve stenosis. There is no tricuspid valve regurgitation. PASP cannot be calculated because of insufficient TR jet. Pericardium/Pleural The pericardium appears normal. There is no pericardial effusion. Inferior Vena Cava Normal inferior vena cava with >50% collapse upon inspiration consistent with normal right atrial pressure, 3 mmHg. Aorta The aortic root size at the sinus of Valsalva is normal. The prox ascending aorta size is normal. Left Ventricular Outflow Tract Name Value Normal LVOT 2D LVOT Diameter 2.1 cm LVOT Doppler LVOT Peak Velocity 161 cm/s LVOT Peak Gradient 10 mmHg LVOT Mean Gradient 4 mmHg LVOT VTI 25 cm LVOT Stroke Volume 84 ml LVOT CO 7.8 l/min LVOT CI 3.3 l/min/m2 Pulmonic Valve Name Value Normal RVOT Doppler RVOT Peak Velocity 113 cm/s RVOT Peak Gradient 5 mmHg PV Doppler PV Peak Velocity 139 cm/s PV Peak Gradient 8 mmHg Mitral Valve Name Value Normal MV Diastolic Function MV E Peak Velocity 97 cm/s MV A Peak Velocity 85 cm/s MV E/A 1.1 MV Decel Time (PW) 231 ms MV Annular TDI MV E/e' (Septal) 12.1 MV E/e' (Lateral) 10.4 MV E/e' (Average) 11.2 Tricuspid Valve Name Value Normal Estimated PAP/RSVP RA Pressure 3 mmHg <=5 Aortic Valve Name Value Normal AV Doppler AV Peak Velocity 174 cm/s AV Peak Gradient 12 mmHg AV Area (Cont Eq Simone) 3.2 cm2 AV DI (Simone) 0.92 AV Regurgitation 2D LVOT Area 3.4 cm2 Ventricles Name Value Normal LV Dimensions 2D/MM IVS Diastolic Thickness (2D) 0.9 cm 0.6-1.0 LVID Diastole (2D) 4.3 cm 3.8-5.2 LVIW Diastolic Thickness (2D) 1.1 cm 0.6-0.9 LVID Systole (2D) 2.6 cm 2.2-3.5 LVOT Diameter 2.1 cm LV Mass (2D Cubed) 142.01 g 67.00-162.00 LV Mass Index (2D Cubed) 60 g/m2 43-95 Relative Wall Thickness (2D) 0.53 <=0.42 LV Fractional Shortening/Ejection Fraction 2D/MM LV Fractional Shortening (2D) 39 % 27-45 LV EF (2D Teichholz) 70 % LV Diastolic Volume (4C MOD) 110 ml LV EF (4C MOD) 70 % LV Diastolic Volume (2C MOD) 86 ml LV EF (2C MOD) 56 % LV Diastolic Volume (BP MOD) 97 ml 46-106 LV Diastolic Volume Index (BP MOD) 41 ml/m2 29-61 LV Systolic Volume (BP MOD) 35 ml 14-42 LV Systolic Volume Index (BP MOD) 15 ml/m2 8-24 LV EF (BP MOD) 64 % 54-74 LV Diastolic Length (4C) 7.6 cm LV Systolic Length (4C) 5.8 cm LV Stroke Volume (4C MOD) 77 ml Atria Name Value Normal LA Dimensions LA Volume (4C A-L) 42 ml LA Volume (BP A-L) 41 ml RA Dimensions RA Systolic Major [place] Length (4C) 4.2 cm 2.2-2.8 RA Area (4C) 12.9 cm2 <=18.0 Report Signatures
[2024-09-29] MEDS: LORATADINE 10 MG TABLET PO (05:50)
[2024-09-29 06:00] LABS: Hematocrit 22.0 % (37.0-47.0); Hemoglobin 7.2 g/dL (12.0-15.0); Immature Granulocyte Percent A 0.5 % (0-0.5); Lymphocytes Absolute Auto 2.83 K/mm3 (0.9-3.2); Mean Corpuscular HGB Conc 32.7 g/dl (32-36); Mean Corpuscular Hemoglobin 32.0 pg (26-34); Mean Corpuscular Volume 97.8 fl (80-100); Nucleated Red Blood Cells Absolute Auto 0.000 K/mm3 (0.0-0.012); Nucleated Red Blood Cells Perc 0.0 % (0.0-0.2); Platelet Count Result 216 k/mm3 (150-375); Red Blood Count 2.25 M/mm3 (4.2-5.4); White Blood Count 12.7 K/mm3 (4.5-10.0)
--- NOTE | 2024-09-29 07:55 | P.PNOB_ITS ---
OB - PN: Subj Subjective Date/time seen: 09/29/24 07:55 S: Difficulty getting out of bed yesterday after surgery, states she feels better today. No inappropriate abdominal pain. No longer nauseous after vomiting yesterday. Does complain of bilateral upper chest pains, denies shortness of breath or pains consistent with when she had her pulmonary embolus last year. Is hungry and would like to eat breakfast this morning. Also would like to shower. O: VSS afebrile Lungs: Clear with some rare wheezing Abdomen: Slightly distended with moderate bowel sounds. Uterus appropriately tender. Extremities: SCD in place / operational Labs: Noted from last night and this morning. A: 1. Postoperative day 1 status post primary ...other than slow return to normal functioning, with poor day yesterday, appears to be doing well from a surgical standpoint. 2. Anemia... expect today's lower level consistent with amount of blood loss at the time of surgery and expected baseline. 3. Chest pain... with her vital signs stable and no significant symptom other than this doubt PE, though with her if history obviously this is a concern. Lovenox was re-initiated last night. P: 1. Increase diet and activity as tolerated today. 2. Continue Henson catheter until urinary output increases. 3. Transfuse 3units packed red blood cells today. 4. Hospitalist service to see and any suggestions/recommendations regarding chest pain will be deferred to them. I have not ordered any imaging due to no acute distress and deferring to their judgment. 5. All of the above was discussed with the patient who states good understanding and agrees to plan of care. OB - PN: Obj Data Labs 09/29/24 05:41 Labs: Laboratory Results - last 24 hr 09/28/24 09/29/24 18:41 05:41 WBC 12.7 H RBC 2.25 L Hgb 8.7 L 7.2 L Hct 27.2 L 22.0 L MCV 97.8 MCH 32.0 MCHC 32.7 RDW 13.4 Plt Count 216 MPV 11.4 H Immature Gran % (Auto) 0.5 Neut % (Auto) 67.4 Lymph % (Auto) 22.3 [place] % (Auto) 9.6 H Eos % (Auto) 0.0 Baso % (Auto) 0.2 Lymph # (Auto) 2.83 [place] # (Auto) 1.2 H Eos # (Auto) 0.0 Baso # (Auto) 0.0 Abs Immat Gran (auto) 0.06 H Absolute Neuts (auto) 8.6 H Absolute Nucleated RBC 0.000 Nucleated RBC % 0.0 OB - PN A/P Time Spent With Patient Time: Total time spent is greater than 50% in coordination of care (as documented) at patient's floor/unit and/or counseling patient:
--- NOTE | 2024-09-29 08:10 | PC.NURSE ---
Introductions were made, then consulted with patient to assess needs related to . Mom has chosen to pump and bottle feed so far. Resources provided for inpatient and outpatient services with the feeding sheet, mom/baby guide and name written on the communication board. Mother voiced understanding of information and will call if there is a request for assistance. Reported to the Primary RN.
[2024-09-29] MEDS: MULTIVIT/MIN/PREN/FOL AC/IRON TABLET 1 TAB PO (08:59)
[2024-09-29] MEDS: DOCUSATE SODIUM 100 MG CAPSULE PO ×2 (09:00→16:59)
[2024-09-29] MEDS: SIMETHICONE 80 MG TAB.CHEW PO ×3 (09:00→16:59)
[2024-09-29] MEDS: ACETAMINOPHEN 500 MG TABLET 1000 MG PO ×3 (11:23→23:01)
[2024-09-29] MEDS: ENOXAPARIN 60 MG/0.6 ML SYRINGE SUB-Q ×2 (11:24→23:01)
[2024-09-29 13:39] LABS: Hematocrit 22.0 % (37.0-47.0); Hemoglobin 7.2 g/dL (12.0-15.0); Mean Corpuscular HGB Conc 32.7 g/dl (32-36); Mean Corpuscular Hemoglobin 31.2 pg (26-34); Mean Corpuscular Volume 95.2 fl (80-100); Platelet Count Result 202 k/mm3 (150-375); Red Blood Count 2.31 M/mm3 (4.2-5.4); White Blood Count 13.5 K/mm3 (4.5-10.0)
[2024-09-29] MEDS: KETOROLAC 15 MG/ML VIAL (*BKC) IV PUSH (13:48)
[2024-09-29 13:53] LABS: Alanine Aminotransferase 28 U/L (6-35); Albumin Level 2.9 g/dL (3.5-5.1); Alkaline Phosphatase 106 U/L (38-126); Anion Gap 7 mmol/L (4-12); Aspartate Amino Transferase 36 U/L (14-36); Bilirubin,Total 0.3 mg/dL (0.2-1.3); Blood Urea Nitrogen 8 mg/dL (7-17); Calcium 8.7 mg/dL (8.4-10.2); Carbon Dioxide 20 mmol/L (22-30); Chloride 106 mmol/L (98-107); Estimated CRCL calculation 124 ml/min; Estimated Glomerular Filt Rate > 60; Glucose 106 mg/dL (65-110); Magnesium 1.9 mg/dL (1.6-2.3); Potassium 4.3 mmol/L (3.4-5.0); Sodium 133 mmol/L (137-145); Total Protein 5.8 g/dL (6.3-8.2)
[2024-09-29 14:13] LABS: Troponin I 0.044 ng/mL (0.000-0.034)
--- NOTE | 2024-09-29 14:15 | WPDANLDPN2 ---
Anes-Prog Note L&D Date/Time: 09/29/24 14:15 Comfortable throughout: section Neuraxial method: spinal Epidural/Spinal procedure site: clean & non-tender Neuro status: Neuro function grossly intact. Cardiovascular status: other (new onset chest pain, patient going to CT for imaging. hx of PE.) Respiratory status: other (chest pain) Airway patency: baseline Mental status: baseline Post-Op hydration status: normal Vital Signs: Last Vital Signs Temp 36.5 C 09/29/24 13:30 Pulse 98 09/29/24 13:30 Resp 15 09/29/24 13:30 BP 122/71 09/29/24 13:30 Pulse Ox 100 09/29/24 13:30 O2 Del Method Room Air 09/28/24 22:49 Pain score (VAS): 10 abdomen and chest. going to CT I/O: Intake & Output 09/28/24 09/29/24 09/29/24 23:59 07:59 15:59 Intake Total 550 351 Output Total 900 125 Balance -350 -125 351 Patient feedback: Patient satisfied with anesthetic care.
--- NOTE | 2024-09-29 14:18 | WPDANLDNPN2 ---
Anes-Prog Note L&D-Neuraxial Date/Time: 09/29/24 14:18 Neuraxial medications: intrathecal PF morphine Opiod-related complaints: none Patient feedback: Patient satisfied with post-operative pain management.
--- NOTE | 2024-09-29 14:31 | ECG_ITS ---
Test Date: 2024-09-29 14:43:10 Measurements Intervals [place] Rate: 101 P: 37 NV: 147 QRS: 17 QRSD: 88 T: 12 QT: 359 QTc: 467 Interpretive Statements SINUS TACHYCARDIA ABNORMAL RHYTHM ECG No previous ECG available for comparison Electronically Signed On 09-30-2024 16:33:32 CDT by Zohra Tovar
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
[2024-09-29] MEDS: LIDOCAINE 5% PATCH 1 PATCH TRANSDERM (17:02)
[2024-09-29 18:09] LABS: Troponin I 0.042 ng/mL (0.000-0.034)
[2024-09-29 22:24] LABS: Troponin I 0.035 ng/mL (0.000-0.034)
[2024-09-30] MEDS: BISACODYL 10 MG SUPPOSITORY RECTAL (02:11)
[2024-09-30] MEDS: ACETAMINOPHEN 500 MG TABLET 1000 MG PO ×4 (05:12→23:50)
[2024-09-30 07:45] LABS: Hematocrit 25.3 % (37.0-47.0); Hemoglobin 8.5 g/dL (12.0-15.0); Immature Granulocyte Percent A 1.1 % (0-0.5); Lymphocytes Absolute Auto 2.11 K/mm3 (0.9-3.2); Mean Corpuscular HGB Conc 33.6 g/dl (32-36); Mean Corpuscular Hemoglobin 30.9 pg (26-34); Mean Corpuscular Volume 92.0 fl (80-100); Nucleated Red Blood Cells Absolute Auto 0.000 K/mm3 (0.0-0.012); Nucleated Red Blood Cells Perc 0.0 % (0.0-0.2); Platelet Count Result 192 k/mm3 (150-375); Red Blood Count 2.75 M/mm3 (4.2-5.4); White Blood Count 13.5 K/mm3 (4.5-10.0)
[2024-09-30 08:05] VITALS: BP 123/77; PULSE 100; RESP 16; TEMP 36.8; O2SAT 99
[2024-09-30] MEDS: DOCUSATE SODIUM 100 MG CAPSULE PO ×2 (08:34→17:21)
[2024-09-30] MEDS: MULTIVIT/MIN/PREN/FOL AC/IRON TABLET 1 TAB PO (08:34)
[2024-09-30] MEDS: SIMETHICONE 80 MG TAB.CHEW PO ×2 (11:17→17:20)
[2024-09-30] MEDS: IBUPROFEN 600 MG TABLET PO ×3 (11:18→23:50)
[2024-09-30] MEDS: ENOXAPARIN 60 MG/0.6 ML SYRINGE SUB-Q ×2 (11:18→23:50)
--- NOTE | 2024-09-30 11:58 | P.PNOB_ITS ---
OB - PN: Subj Subjective Date/time seen: 09/30/24 11:58 Interval history: Patient states her chest pain has improved. She continues to have some abdominal pain. Patient has not had a bowel movement and attributes some of her pain to that. Her robles was removed and she has been able to void. Patient comments: no complaints, pain well controlled, tolerating diet and flatus present OB - PN: Obj Data Labs 09/30/24 07:37 09/29/24 13:31 Labs: Laboratory Results - last 24 hr 09/27/24 09/29/24 09/29/24 12:02 13:31 13:32 WBC 13.5 H RBC 2.31 L Hgb 7.2 L Hct 22.0 L MCV 95.2 MCH 31.2 MCHC 32.7 RDW 14.0 Plt Count 202 MPV 11.0 H Immature Gran % (Auto) Neut % (Auto) Lymph % (Auto) [place] % (Auto) Eos % (Auto) Baso % (Auto) Lymph # (Auto) [place] # (Auto) Eos # (Auto) Baso # (Auto) Abs Immat Gran (auto) Absolute Neuts (auto) Absolute Nucleated RBC Nucleated RBC % Sodium 133 L Potassium 4.3 Chloride 106 Carbon Dioxide 20 L Anion Gap 7 BUN 8 Creatinine 0.65 L Cancelled Estim Creat Clear Calc 124 Cancelled Estimated GFR > 60 Cancelled Glucose 106 Calcium 8.7 Magnesium 1.9 Total Bilirubin 0.3 AST 36 ALT 28 Alkaline Phosphatase 106 Troponin I 0.044 H* Total Protein 5.8 L Albumin 2.9 L Blood Type O Positive Antibody Screen Negative Crossmatch See Detail 09/29/24 09/29/24 09/30/24 16:55 21:28 07:37 WBC 13.5 H RBC 2.75 L Hgb 8.5 L Hct 25.3 L MCV 92.0 MCH 30.9 MCHC 33.6 RDW 15.2 H Plt Count 192 MPV 10.2 Immature Gran % (Auto) 1.1 H Neut % (Auto) 74.2 H Lymph % (Auto) 15.6 L [place] % (Auto) 8.7 H Eos % (Auto) 0.1 Baso % (Auto) 0.3 Lymph # (Auto) 2.11 [place] # (Auto) 1.2 H Eos # (Auto) 0.0 Baso # (Auto) 0.0 Abs Immat Gran (auto) 0.15 H Absolute Neuts (auto) 10.0 H Absolute Nucleated RBC 0.000 Nucleated RBC % 0.0 Sodium Potassium Chloride Carbon Dioxide Anion Gap BUN Creatinine Estim Creat Clear Calc Estimated GFR Glucose Calcium Magnesium Total Bilirubin AST ALT Alkaline Phosphatase Troponin I 0.042 H* 0.035 H* Total Protein Albumin Blood Type Antibody Screen Crossmatch Imaging Radiologist's impression: Impressions Chest CTA 09/29/24 15:09 IMPRESSION: 1. No pulmonary embolism. 2. Minimal ascites around the liver and spleen. Clinical correlation advised. 3. Trace of left pleural effusion with adjacent atelectasis. No acute lung lesion seen. OB - PN A/P Plan day: 1 Plan: routine care Comments: patient doing well H/H improved after transfusion, denies any bleeding afebrile, VSS incision C/D/I robles removed, voiding spontaneously denies any further chest pain appreciate hospitalist consultation and recommendations Work up for PE negative normal EKG and troponins trending downward encourge use of incentive spirometer will add milk of magnesia and miralax to aid with constipation will consider suppository as needed continue routine post op care anticipate d/c home tomorrow Time Spent With Patient Time: Total time spent is greater than 50% in coordination of care (as documented) at patient's floor/unit and/or counseling patient: Time with patient: less than 15 minutes Review of Systems 2 Constitutional: Constitutional: Reports no additional constitutional complaints Cardiovascular: Cardiovascular: Reports no additional cardiovascular complaints Respiratory: Respiratory: Reports no additional respiratory complaints Gastrointestinal: Gastrointestinal: Reports no additional gastrointestinal complaints Genitourinary: Genitourinary: Reports no additional female genitourinary complaints Exam 2 Const: General: comfortable and no acute distress Resp: Effort & Inspection: normal respiratory effort Auscultation: clear to auscultation bilaterally Cardio: Rate: regular rate GI: GI Palp: Yes Soft to palpation, Yes Tenderness to palpation present (GI) (around incision ) and No Guarding due to palpation present (GI) A uscultation: normal bowel sounds Other: incision C/D/I, covered with Dermabond Psych: Appearance: grossly normal Mental Status: mental status grossly normal Affect: normal affect
[2024-09-30] MEDS: MAGNESIUM HYDROXIDE SUSP 30 ML UDC PO (12:40)
--- NOTE | 2024-09-30 18:06 | PM.IMPN ---
Progress Note: A&P Assessment and Plan (1) History of pulmonary embolus (PE): Code(s): Z86.711 - Personal history of pulmonary embolism Status: Acute (2) Advanced maternal age (AMA) in : Status: Acute (3) 38 weeks gestation of : Code(s): Z3A.38 - 38 weeks gestation of Status: Acute (4) Non-reactive NST (non-stress test): Code(s): O28.8 - Other abnormal findings on screening of mother Status: Acute (5) Obesity: Code(s): E66.9 - Obesity, unspecified Status: Acute (6) Chest pain at rest: Code(s): R07.9 - Chest pain, unspecified Status: Acute Plan Patient with c/o CP, now the pain is resolved to further evaluate trops were order which are slightly elevated but trending down suspect 2/2 anemia and ischemic demand due to stress of as there are not significant acute changes of her EKG. patient also has history of pulmonary emboli for which patient is treated and repeat CTA of chest is negative for any PE, today patient is CP free, will signed off, patient redevelop any symptoms, please feel free to call us and thank you again for consulting us. We want to thank you for consulting for medical management, we will follow the patient with you and if you have question please feel free to call us. Subjective Date/time seen: 09/30/24 18:06 Interval history: Patient with c/o CP, now the pain is resolved to further evaluate trops were order which are slightly elevated but trending down suspect 2/2 anemia and ischemic demand due to stress of as there are not significant acute changes of her EKG. patient also has history of pulmonary emboli for which patient is treated and repeat CTA of chest is negative for any PE, today patient is CP free, will signed off, patient redevelop any symptoms, please feel free to call us and thank you again for consulting us. Review of Systems Review of Systems: All systems reviewed & are unremarkable except as noted in HPI and below Exam Narrative: Morbidly obese Patient is comfortable, NAD HEENT: eyes are clear and none icteric LUNGS:CTA HEART: RR S1S2 ABD: BS+, Soft and nontender Lower extremities: no edema SKIN: nonjaundiced Neuro: grossly intact. Objective Data Vital Signs Vital Signs: Vital Signs - 24 hr 09/29/24 18:10 09/29/24 18:31 09/29/24 19:31 Temperature 36.3 C L 36.3 C L 36.4 C L Pulse Rate 101 H 102 H 92 Respiratory Rate 16 18 18 Blood Pressure 117/59 L 110/58 L 135/80 Pulse Oximetry 100 100 95 Oxygen Delivery 09/29/24 19:31 09/29/24 21:00 09/29/24 21:00 Temperature 36.4 C L 37.0 C 37.0 C Pulse Rate 92 97 97 Respiratory Rate 18 18 18 Blood Pressure 135/80 104/61 104/61 Pulse Oximetry 95 97 97 Oxygen Delivery 09/29/24 21:00 09/29/24 22:05 09/29/24 22:05 Temperature 36.6 C 36.6 C Pulse Rate 103 H 103 H Respiratory Rate 18 18 Blood Pressure 128/70 128/70 Pulse Oximetry 100 100 Oxygen Delivery Room Air 09/30/24 07:25 09/30/24 08:05 Temperature 36.8 C Pulse Rate 100 Respiratory Rate 16 Blood Pressure 123/77 Pulse Oximetry 99 Oxygen Delivery Room Air Intake/Output Intake/Output: Intake & Output 09/27/24 09/28/24 09/29/24 09/30/24 23:59 23:59 23:59 23:59 Intake Total 246 808 8934 Output Total 2550 2825 1025 Balance 100 -1950 -1072 -1025 Meds/Results Medications: Active Medications Generic Name Dose Route Start Last Admin Trade Name Freq PRN Reason Stop Dose Admin Acetaminophen 1,000 mg 09/28/24 18:00 09/30/24 17:22 Acetaminophen 500 Mg Tablet PO Not Given Q6HR CICI Bisacodyl 10 mg 09/28/24 14:14 09/30/24 02:11 Bisacodyl 10 Mg Suppository RECTAL 10 mg ONCE PRN Administration Constipation Docusate Sodium 100 mg 09/28/24 17:00 09/30/24 17:21 Docusate Sodium 100 Mg Capsule PO 100 mg BID CICI Administration Emollient Ointment 1 applic 09/28/24 14:14 Lanolin (Lansinoh) 7.5 Gm Cream TOPICAL PRN PRN Sore Nipples Enoxaparin Sodium 60 mg 09/29/24 00:00 09/30/24 11:18 Enoxaparin 60 Mg/0.6 Ml Syringe SUB-Q 60 mg Q12H CICI Administration Ibuprofen 600 mg 09/30/24 12:00 09/30/24 17:20 Ibuprofen 600 Mg Tablet PO 600 mg Q6H CICI Administration Lidocaine 1 patch 09/28/24 14:14 09/29/24 17:02 Lidocaine 5% Patch TRANSDERM 1 patch DAILY PRN Administration Incision pain Magnesium Hydroxide 30 ml 09/30/24 11:52 09/30/24 12:40 Magnesium Hydroxide Susp 30 Ml Udc PO 30 ml QAM PRN Administration Constipation Naloxone HCl 0.1 mg 09/28/24 14:14 Naloxone Hcl 0.4 Mg/Ml Vial IV PUSH Q2M PRN Opiate Reversal Ondansetron HCl 4 mg 09/28/24 14:14 09/28/24 16:53 Ondansetron Inj 4 Mg/2 Ml Vial IV PUSH 4 mg Q6H PRN Administration Nausea Oxycodone HCl 5 mg 09/28/24 14:14 Oxycodone Hcl (*Crx) 5 Mg Tab Ir PO Q4H PRN Pain Rated 4-6 Oxycodone HCl 10 mg 09/28/24 14:14 Oxycodone Hcl (*Crx) 5 Mg Tab Ir PO Q6H PRN Pain Rated 7-10 Perflutren Lipid Microsphere 0 ml 09/29/24 12:33 Perflutren Lipid Microspheres 1.5 Ml Vial Diluted To 10 Ml Total Volume IV PUSH 10/02/24 12:33 ONCE PRN adequate visualization Protocol Polyethylene Glycol 17 gm 09/30/24 08:19 09/30/24 08:34 Polyethylene Glycol 3350 17 Gm Powd.Pack PO 17 gm QAM PRN Administration Constipation Polysaccharide Iron Complex 150 mg 09/28/24 17:00 09/30/24 17:20 Polysaccharide Iron Complex 150 Mg Capsule PO 150 mg BIDWM CICI Administration Vit/Calcium/Iron/Folic Ac 1 tab 09/29/24 09:00 09/30/24 08:34 Multivit/Min/Pren/Fol Ac/Iron Tablet PO 1 tab DAILY CICI Administration Simethicone 80 mg 09/28/24 14:14 09/30/24 17:20 Simethicone 80 Mg Tab.Chew PO 80 mg TIDWM CICI Administration Zolpidem Tartrate 5 mg 09/28/24 14:14 Zolpidem Tartrate (*Crx) 5 Mg Tablet PO HS PRN Insomnia Radiology Results: ITS Impressions Chest CTA 09/29/24 15:09 IMPRESSION: 1. No pulmonary embolism. 2. Minimal ascites around the liver and spleen. Clinical correlation advised. 3. Trace of left pleural effusion with adjacent atelectasis. No acute lung lesion seen. Labs Labs: Laboratory Results - last 24 hr 09/27/24 09/29/24 09/29/24 12:02 16:55 21:28 WBC RBC Hgb Hct MCV MCH MCHC RDW Plt Count MPV Immature Gran % (Auto) Neut % (Auto) Lymph % (Auto) [place] % (Auto) Eos % (Auto) Baso % (Auto) Lymph # (Auto) [place] # (Auto) Eos # (Auto) Baso # (Auto) Abs Immat Gran (auto) Absolute Neuts (auto) Absolute Nucleated RBC Nucleated RBC % Troponin I 0.042 H* 0.035 H* Blood Type O Positive Antibody Screen Negative Crossmatch See Detail 09/30/24 07:37 WBC 13.5 H RBC 2.75 L Hgb 8.5 L Hct 25.3 L MCV 92.0 MCH 30.9 MCHC 33.6 RDW 15.2 H Plt Count 192 MPV 10.2 Immature Gran % (Auto) 1.1 H Neut % (Auto) 74.2 H Lymph % (Auto) 15.6 L [place] % (Auto) 8.7 H Eos % (Auto) 0.1 Baso % (Auto) 0.3 Lymph # (Auto) 2.11 [place] # (Auto) 1.2 H Eos # (Auto) 0.0 Baso # (Auto) 0.0 Abs Immat Gran (auto) 0.15 H Absolute Neuts (auto) 10.0 H Absolute Nucleated RBC 0.000 Nucleated RBC % 0.0 Troponin I Blood Type Antibody Screen Crossmatch
[2024-09-30 23:00] VITALS: BP 131/66; PULSE 101; RESP 16; TEMP 36.6; O2SAT 99
[2024-10-01] MEDS: ACETAMINOPHEN 500 MG TABLET 1000 MG PO ×3 (06:16→18:40)
[2024-10-01] MEDS: IBUPROFEN 600 MG TABLET PO ×3 (06:16→18:40)
--- NOTE | 2024-10-01 07:28 | PM.OBPNVD ---
OB - PN: Subj Subjective Date/time seen: 10/01/24 07:28 Interval history: She denies chest pain or SOB. She c/o pain which does get better with pain meds compared to yesterday. Currently 10/07, just took pain pill. She has ambulated in room without problems. Denies leg pain. Lochia decreasing. OB - PN: Obj Data Labs 09/30/24 07:37 09/29/24 13:31 Labs: Laboratory Results - last 24 hr 09/30/24 07:37 WBC 13.5 H RBC 2.75 L Hgb 8.5 L Hct 25.3 L MCV 92.0 MCH 30.9 MCHC 33.6 RDW 15.2 H Plt Count 192 MPV 10.2 Immature Gran % (Auto) 1.1 H Neut % (Auto) 74.2 H Lymph % (Auto) 15.6 L [place] % (Auto) 8.7 H Eos % (Auto) 0.1 Baso % (Auto) 0.3 Lymph # (Auto) 2.11 [place] # (Auto) 1.2 H Eos # (Auto) 0.0 Baso # (Auto) 0.0 Abs Immat Gran (auto) 0.15 H Absolute Neuts (auto) 10.0 H Absolute Nucleated RBC 0.000 Nucleated RBC % 0.0 OB - PN A/P Assessment and Plan (1) delivery delivered: Code(s): O82 - Encounter for delivery without indication Status: Acute Assessment and Plan: POD3. Doing well. Pain improved from yesterday. Continue pain management. Asymptomatic anemia s/p transfusion. Routine post op care. May be discharged home today if she opts. Time Spent With Patient Time: Total time spent is greater than 50% in coordination of care (as documented) at patient's floor/unit and/or counseling patient: Exam Const: General: comfortable and no acute distress Resp: Effort & Inspection: normal respiratory effort GI: Other: fundus below umbilicus, firm, incision ivy intact, no drainage. Neuro: General: patient oriented x3 Extrem: General: normal to inspection, no calf tenderness and edema (1+ bilat) Psych: Mental Status: mental status grossly normal
[2024-10-01] MEDS: SIMETHICONE 80 MG TAB.CHEW PO ×3 (08:02→16:06)
[2024-10-01] MEDS: MULTIVIT/MIN/PREN/FOL AC/IRON TABLET 1 TAB PO (08:02)
[2024-10-01] MEDS: DOCUSATE SODIUM 100 MG CAPSULE PO ×2 (08:02→16:06)
[2024-10-01] MEDS: LIDOCAINE 5% PATCH 1 PATCH TRANSDERM (08:02)
[2024-10-01] MEDS: MAGNESIUM HYDROXIDE SUSP 30 ML UDC PO (08:19)
[2024-10-01 08:25] VITALS: BP 102/64; PULSE 73; RESP 18; TEMP 36.4; O2SAT 100
[2024-10-01] MEDS: ENOXAPARIN 60 MG/0.6 ML SYRINGE SUB-Q (12:33)
[2024-10-01 18:40] VITALS: BP 121/75; PULSE 86; RESP 18; TEMP 36.7; O2SAT 100
[2024-10-02] MEDS: ENOXAPARIN 60 MG/0.6 ML SYRINGE SUB-Q
[2024-10-02] MEDS: IBUPROFEN 600 MG TABLET PO ×2 (00:30→07:40)
[2024-10-02] MEDS: ACETAMINOPHEN 500 MG TABLET 1000 MG PO ×2 (00:30→07:39)
[2024-10-02 07:06] VITALS: BP 121/75; PULSE 83; RESP 18; TEMP 36.8; O2SAT 99
[2024-10-02] MEDS: TETANUS,DIPHTHERIA,AC PERTUSSIS ADULT (0.5 ML) BOOSTRIX IM (07:37)
[2024-10-02] MEDS: MEASLES,MUMPS,RUBELLA VACCINE 0.5 ML VIAL SUB-Q (07:38)
[2024-10-02] MEDS: SIMETHICONE 80 MG TAB.CHEW PO (07:40)
[2024-10-02] MEDS: LIDOCAINE 5% PATCH 1 PATCH TRANSDERM (07:41)
[2024-10-02] MEDS: DOCUSATE SODIUM 100 MG CAPSULE PO (07:41)
--- NOTE | 2024-10-02 09:34 | P.PNOB_ITS ---
OB - PN: Subj Subjective Date/time seen: 10/02/24 09:34 Interval history: She denies chest pain or SOB. She states pain much better controlled today. Decreasing lochia. OB - PN: Obj Data Labs 09/30/24 07:37 09/29/24 13:31 OB - PN A/P Assessment and Plan (1) delivery delivered: Code(s): O82 - Encounter for delivery without indication Status: Acute Assessment and Plan: POD4. Doing well. Pain well controlled. Will discharge home today. Time Spent With Patient Time: Total time spent is greater than 50% in coordination of care (as documented) at patient's floor/unit and/or counseling patient: Exam 2 Const: General: comfortable and no acute distress Resp: Effort & Inspection: normal respiratory effort GI: Other: incision ivy intact fundus firm below umbilicus Neuro: General: patient oriented x3 Extrem: General: normal to inspection, no calf tenderness and edema (1+ bilat) Psych: Mental Status: mental status grossly normal
[2024-10-02] MEDS: MULTIVIT/MIN/PREN/FOL AC/IRON TABLET 1 TAB PO (10:03)
--- NOTE | 2024-10-02 10:10 | PC.NURSE ---
Patient viewed the discharge video Mother & Baby Care, The First Two Weeks. Patient was given the opportunity and encouraged to ask questions. Patient verbalized understanding of information shared and has been given the mother/baby guide for home reference.
--- NOTE | 2024-10-02 10:13 | PC.NURSE ---
Introductions were made, then consulted with patient to assess needs related to . Mother led the conversation with her?plans to feed?her infant and the?experience so far. Mother states that she has been primarily bottle feeding but plans to pump in addition to bottle feeding once she is home. [facility] referral was provided per patient needs and faxed to [facility] office in [place]. Mother denies needing any further assistance at this time. Outpatient information provided to mother.
[2024-10-04 08:36] VITALS: BP 124/62; PULSE 75; RESP 18; TEMP 36.8; O2SAT 100
--- NOTE | 2024-10-27 14:27 | P.DS_ITS ---
DS: Admitting Diagnosis Discharge Date 10/02/24 Admitting Diagnosis DS: Discharge Diagnosis Discharge Diagnosis (1) delivery delivered: Code(s): O82 - Encounter for delivery without indication Status: Acute OB - DS: Summary OB Procedures : None OB Procedures Intrapartum: OB Procedures: : Transfusion Peripartum Data Procedures: Procedures Operation Date: 09/28/24 10:00 Actual Procedure Side Surgeon p Section Not Applicable Tam Barahona MD Time Spent with Patient Time attestation: Total time spent providing and/or coordinating discharge services: DS: Data Data Completed and Pending Completed studies during hospitalization: Pending at discharge 09/28/24 10:38 Surgical [PTH] Routine Discharge Plan Discharge Attending physician on discharge: Jesús Shepard Consulting providers: Meghan Davis; Tam Barahona; Pietro Tucker Jr.; Guy Mueller; Alessia Flores; Zohra Tovar; Rivas Farah Discharging Clinician: Tam Barahona Anticipated Discharge Date/Time: 10/02/24 09:36 Patient Disposition: Home Activity: as tolerated and pelvic rest Diet: regular Discharge Instructions: [place] to be removed at post admission visit on 10/04/24. Education: Mom and Baby Guide Given to: Mother Follow-Up: Call your delivering provider's office for an appointment to be seen in: call for appointment Mom and baby should come to the [facility] for the follow-up appointment. Appointment Date/Time: October 04, 2024 at 8:00 am What to expect at your follow-up visit: Removal of [place] Call [phone] if you are unable to keep your appointment time. BREAST CARE: * Wear a snug supportive bra. * For engorgement discomfort: Breast Feeding: * Apply warm moist washcloths * Express milk as needed to relieve engorgement * Wear loose clothing * For sore nipples: * Identify correct latch-on * Apply warm moist washcloths before and after nursing * Air dry nipples after nursing * May apply Lansinoh cream to nipples ABDOMINAL INCISION: (if applicable) * Allow incision to air dry * Do NOT use lotions for powders on your incision * When showering, allow soap and water to run over the incision, but do not wash incision EPISIOTOMY/PERINEAL CARE: * Until bleeding stops, use your kings bottle after urinating * Change your pad frequently throughout the day * No tub baths until seen by your physician - You may shower ACTIVITY: * Rest as much as possible. * Do not exercise or lift anything heavier than your baby (such as laundry or other children.) * Avoid stairs or driving as much as possible. * Do not put anything into the vagina. No douching, tampons, or sexual activity until seen by physician. NOTIFY PHYSICIAN IF YOU HAVE ANY QUESTIONS OR IF ANY OF THE FOLLOWING SYMPTOMS OCCUR: * If your incision becomes red, swollen, or more painful than what you have experienced in the hospital. * If your vaginal bleeding becomes foul smelling. * If your vaginal bleeding becomes more heavy than a period or if your bleeding changes from pink to bright red. However, you may pass an occasional walnut- sized clot once or twice for the first week . * If you experience a sharp, shooting pain in you calves. * If you discover a hard, reddened area on your breast or if you experience flu- like symptoms. DIET: * Eat regular, well-balanced meals. * Drink plenty of fluids daily. If , drink to thirst. Patient Instructions: (DC) Patient Language: Trinidadian Stand Alone Forms: General Discharge Information Follow-up/Referrals: Tam Barahona MD [Physician] - Discharge Medications: New oxycodone-acetaminophen 5-325 mg tablet 1 tablet PO Q6H PRN (Reason: pain) Qty: 28 0RF ibuprofen 600 mg tablet 600 mg PO Q6H PRN (Reason: pain) Qty: 30 0RF sennosides-docusate sodium [Senna with Docusate Sodium] 8.6-50 mg tablet 1 tab-cap PO HS Qty: 60 0RF Continued Classic 28 mg iron- 800 mcg tablet 1 tablet PO HS aspirin [Adult Low Dose Aspirin] 81 mg tablet,delayed release (DR/EC) 81 mg PO DAILY enoxaparin 60 mg/0.6 mL syringe 60 mg subcut Q12H 42 Days Qty: 6 12RF No Action nitrofurantoin monohyd/m-cryst [Macrobid] 100 mg capsule 100 mg PO Q12H 7 Days Qty: 14 0RF Rx Instructions: must administer with a meal/food Date of admission: 09/27/24 10:35 Primary Care Provider: Jose,Kyle Munoz Admitting Provider: Tam Barahona Attending physician on admission: Jesús Shepard Condition: Stable
== END 2024-10-02 11:55 | disposition home or self-care (01) | DRG 788 ==
LOC: ANHOBOP 10:58 → ANHOB2 09-29 09:14 → ANHLDR 10-05 10:26
PROVIDERS: Family Medicine; Admitting Provider Obstetrics & Gynecology; PCP Nurse Practitioner Family; Visit Provider Student in an Organized Health Care Education/Training Program
PROC: 10D00Z1 Extraction of Products of Conception, Low, Open Approach (ICD-10-PCS; CPT 59514; principal; 2024-09-28 10:00)
DX: O62.0 Primary inadequate contractions (principal); O99.214 Obesity complicating childbirth; O76 Abnormality in fetal heart rate and rhythm complicating labor and delivery; O99.62 Diseases of the digestive system complicating childbirth; O99.824 Streptococcus B carrier state complicating childbirth; Z3A.38 38 weeks gestation of pregnancy; Z37.0 Single live birth; Z86.711 Personal history of pulmonary embolism; Z79.01 Long term (current) use of anticoagulants; K21.9 Gastro-esophageal reflux disease without esophagitis; Z87.891 Personal history of nicotine dependence
CPT/HCPCS: 36415; 36430; 71275; 80053; 83735; 84484; 85014; 85018; 85025; 85027; 86593; 86850; 86900; 86901; 86923; 88307; 90710; 90715; 93005; 93306; A9270; J0290; J0456; J0690; J1650; J1885; J2274; J2405; J2590; J7120; P9016; Q9967